=== PATIENT | female | born 1965 | race Caucasian/White ===

== ENCOUNTER 2018-09-20 01:26 | Inpatient (IN) | payer OTHER, MEDICAID ==
[2018-09-20 02:35] LABS: ADD MAN DIFF? NO
[2018-09-20 02:38] LABS: BASOPHILS % 0.1 % (0.0-2.0); EOSINOPHILS % 0.3 % (0.0-7.0); HEMATOCRIT 31.2 % (37.0-47.0); HEMOGLOBIN 9.9 g/dl (12.0-16.0); LYMPHOCYTES # 0.7 10^3/ul (0.8-2.9); LYMPHOCYTES % 6.2 % (15.0-51.0); MEAN CORPUSCULAR HEMOGLOBIN 27.3 pg (29.0-33.0); MEAN CORPUSCULAR HGB CONC 31.7 g/dl (32.0-37.0); MEAN CORPUSCULAR VOLUME 86.2 fl (82.0-101.0); MEAN PLATELET VOLUME 9.2 fl (7.4-10.4); MONOCYTE # 0.7 10^3/ul (0.3-0.9); MONOCYTES % 6.1 % (0.0-11.0); NEUTROPHIL # 9.5 10^3/ul (1.6-7.5); NEUTROPHILS % 86.9 % (39.0-77.0); PLATELET COUNT 332 10^3/UL (140-415); RED BLOOD COUNT 3.62 10^6/ul (4.20-5.40)
[2018-09-20 02:38] LABS: WHITE BLOOD COUNT 10.9 10^3/ul (4.8-10.8)
[2018-09-20 02:53] LABS: INR 1.14; PROTIME 14.8 Sec (11.9-14.9); PT RATIO 1.2
[2018-09-20 02:54] LABS: PARTIAL THROMBOPLASTIN TIME 31.2 Sec (23.0-35.0)
[2018-09-20] MEDS ORDERED: ONDANSETRON 4 MG INJ IV (03:00)
[2018-09-20] MEDS ORDERED: ACETAMINOPHEN 325 MG TAB PO (03:00)
[2018-09-20] MEDS: CEFEPIME 2GM/50 ML (PMX) 50 ML IVPB (03:15)
[2018-09-20] MEDS: ONDANSETRON 4 MG INJ IV ×2 (03:15→05:18)
[2018-09-20] MEDS: morphine 4 MG/ML VIAL IV (03:15)
[2018-09-20] MEDS: SODIUM CHLORIDE 0.9% 1L BAG IV* (03:15)
[2018-09-20] MEDS: ENOXAPARIN 80 MG/0.8 ML SYG SC ×4 (03:16→20:35)
[2018-09-20] MEDS: hydrALAzine 20 MG INJ IV ×3 (03:32→13:04)
[2018-09-20] MEDS: VANCOMYCIN 1 GM (PMX) 250 ML IVPB (03:34)
[2018-09-20 03:45] LABS: ANION GAP 4 (5-13); BLOOD UREA NITROGEN 21 mg/dl (7-20); C-REACTIVE PROTEIN 5.4 mg/dl (0.0-0.9); CALCIUM 8.2 mg/dl (8.4-10.2); CARBON DIOXIDE 29 mmol/L (21-31); CHLORIDE 104 mmol/L (97-110); CREATININE 1.17 mg/dl (0.44-1.00); Estimated GFR 48 mL/min (>60); GLUCOSE 300 mg/dl (70-220); POTASSIUM 4.1 mmol/L (3.5-5.1); SODIUM 137 mmol/L (135-144)
[2018-09-20 03:54] LABS: TROPONIN-I 0.012 ng/ml (0.000-0.120)
[2018-09-20 04:20] LABS: ERYTHROCYTE SEDIMENTATION RATE 77 mm/Hr (0-30)
[2018-09-20] MEDS: NICARDipine HCL 30 MG CAPSULE PO (04:30)
[2018-09-20] MEDS ORDERED: GLUCOSE GEL 15 GRAM TUBE PO ×2 (05:00)
[2018-09-20] MEDS ORDERED: GLUCOSE GEL 15 GRAM TUBE BUCCAL (05:00)
[2018-09-20] MEDS ORDERED: DEXTROSE 50% 50 ML SYRINGE IV (05:00)
[2018-09-20] MEDS ORDERED: GLUCAGON 1 MG INJ IM (05:00)
[2018-09-20] MEDS ORDERED: traMADol 50 MG TAB PO (05:00)
[2018-09-20] MEDS ORDERED: NACL 0.9% 3 ML SYG IV (05:00)
[2018-09-20] MEDS: METOPROLOL 25 MG TAB PO ×2 (05:32→20:15)
[2018-09-20] MEDS: INSULIN ASPART [NOVOLOG] 3 ML PEN SC ×8 (05:40→21:00)
[2018-09-20] MEDS: INSULIN DETEMIR [LEVEMIR] (100 UNITS/ML) SYG SC (05:41)
[2018-09-20 06:21] LABS: ADD MAN DIFF? NO
[2018-09-20 06:27] LABS: BASOPHILS % 0.2 % (0.0-2.0); EOSINOPHILS % 0.3 % (0.0-7.0); HEMATOCRIT 31.3 % (37.0-47.0); HEMOGLOBIN 9.9 g/dl (12.0-16.0); LYMPHOCYTES % 8.9 % (15.0-51.0); MEAN CORPUSCULAR HEMOGLOBIN 27.6 pg (29.0-33.0); MEAN CORPUSCULAR HGB CONC 31.6 g/dl (32.0-37.0); MEAN CORPUSCULAR VOLUME 87.2 fl (82.0-101.0); MEAN PLATELET VOLUME 9.5 fl (7.4-10.4); MONOCYTE # 0.6 10^3/ul (0.3-0.9); NEUTROPHIL # 9.9 10^3/ul (1.6-7.5); NEUTROPHILS % 85.3 % (39.0-77.0); PLATELET COUNT 341 10^3/UL (140-415); RED BLOOD COUNT 3.59 10^6/ul (4.20-5.40); RED CELL DISTRIBUTION WIDTH 14.2 % (11.5-14.5)
[2018-09-20 06:27] LABS: WHITE BLOOD COUNT 11.6 10^3/ul (4.8-10.8)
[2018-09-20] MEDS: AMLODIPINE 10 MG TAB PO (06:40)
[2018-09-20 07:02] LABS: ANION GAP 5 (5-13); BLOOD UREA NITROGEN 21 mg/dl (7-20); CALCIUM 7.8 mg/dl (8.4-10.2); CARBON DIOXIDE 27 mmol/L (21-31); CHLORIDE 106 mmol/L (97-110); CREATININE 1.11 mg/dl (0.44-1.00); Estimated GFR 51 mL/min (>60); GLUCOSE 286 mg/dl (70-220); POTASSIUM 4.4 mmol/L (3.5-5.1); SODIUM 138 mmol/L (135-144)
[2018-09-20 07:43] LABS: IRON 16 ug/dl (35-150)
[2018-09-20 07:52] LABS: % IRON SATURATION 8 % SAT (22-52); TOTAL IRON BINDING CAPACITY 204 ug/dl (241-421)
[2018-09-20] MEDS: CEFEPIME 1GM/50 ML (PMX) 50 ML IVPB ×2 (08:43→20:14)
[2018-09-20] MEDS ORDERED: VANCOMYCIN IV PER PHARMACY XX (09:00)
[2018-09-20] MEDS: VANCOMYCIN 1.25 GM in SOD CHLORIDE 0.9% 250 ML IVPB (10:44)
[2018-09-20] MEDS: LACTATED RINGER'S 500 ML IV (11:00)
[2018-09-20] MEDS: DEXTROSE 50% 50 ML SYRINGE IV (12:15)
[2018-09-20] MEDS: LOSARTAN 25 MG TAB PO ×2 (12:16→20:15)
[2018-09-20 14:35] LABS: GLUCOSE 86 mg/dl (70-220)
[2018-09-20 14:42] LABS: LACTIC ACID 2.3 mmol/L (0.5-2.0)
[2018-09-20 14:48] LABS: TROPONIN-I < 0.012 ng/ml (0.000-0.120)
[2018-09-20] MEDS: MONTELUKAST 10 MG TAB PO (20:14)
[2018-09-20] MEDS: SOD FERRIC GLUC COMPLX 125 MG in SOD CHLORIDE 0.9% 100 ML IVPB (21:31)
[2018-09-20 22:41] LABS: ADD UMIC YES; UR ASCORBIC ACID NEGATIVE (NEGATIVE); UR BILIRUBIN (Dip) NEGATIVE (NEGATIVE); UR BLOOD (Dip) 1+ mg/dL (NEGATIVE); UR CLARITY CLEAR (CLEAR); UR COLOR YELLOW (YELLOW); UR GLUCOSE (Dip) 2+ mg/dL (NEGATIVE); UR KETONES (Dip) NEGATIVE (NEGATIVE); UR LEUKOCYTE ESTERASE (Dip) NEGATIVE Leu/ul (NEGATIVE); UR NITRITE (Dip) NEGATIVE (NEGATIVE); UR RBC 8 /HPF (0-5); UR SPECIFIC GRAVITY (Dip) 1.011 (1.003-1.030); UR TOTAL PROTEIN (Dip) 2+ mg/dl (NEGATIVE); UR UROBILINOGEN (Dip) NEGATIVE (NEGATIVE); UR WBC 3 /HPF (0-5)
[2018-09-21] MEDS: hydrALAzine 20 MG INJ IV (00:27)
[2018-09-21] MEDS: ACCU-CHEK XX ×2 (02:00→22:37)
[2018-09-21 05:48] LABS: ADD MAN DIFF? NO
[2018-09-21 05:56] LABS: WHITE BLOOD COUNT 7.7 10^3/ul (4.8-10.8)
[2018-09-21 05:56] LABS: BASOPHILS % 0.3 % (0.0-2.0); EOSINOPHILS # 0.1 10^3/ul (0.0-0.5); EOSINOPHILS % 0.6 % (0.0-7.0); HEMATOCRIT 28.2 % (37.0-47.0); HEMOGLOBIN 8.9 g/dl (12.0-16.0); LYMPHOCYTES % 13.1 % (15.0-51.0); MEAN CORPUSCULAR HEMOGLOBIN 27.4 pg (29.0-33.0); MEAN CORPUSCULAR HGB CONC 31.6 g/dl (32.0-37.0); MEAN CORPUSCULAR VOLUME 86.8 fl (82.0-101.0); MEAN PLATELET VOLUME 9.6 fl (7.4-10.4); MONOCYTE # 0.5 10^3/ul (0.3-0.9); MONOCYTES % 6.2 % (0.0-11.0); NEUTROPHIL # 6.1 10^3/ul (1.6-7.5); NEUTROPHILS % 79.5 % (39.0-77.0); PLATELET COUNT 295 10^3/UL (140-415); RED BLOOD COUNT 3.25 10^6/ul (4.20-5.40); RED CELL DISTRIBUTION WIDTH 14.7 % (11.5-14.5)
[2018-09-21] MEDS: metroNIDAZOLE 500 MG/NS (PMX) 100 ML IVPB ×3 (06:00→22:37)
[2018-09-21 06:08] LABS: ALANINE AMINOTRANSFERASE 18 IU/L (13-69); ALBUMIN 2.4 g/dl (3.3-4.9); ALBUMIN/GLOBULIN RATIO 0.72; ALKALINE PHOSPHATASE 247 IU/L (42-121); ANION GAP 4 (5-13); ASPARTATE AMINO TRANSFERASE 13 IU/L (15-46); BILIRUBIN,INDIRECT 0.2 mg/dl (0-1.1); BILIRUBIN,TOTAL 0.2 mg/dl (0.2-1.3); BLOOD UREA NITROGEN 27 mg/dl (7-20); CALCIUM 7.7 mg/dl (8.4-10.2); CARBON DIOXIDE 26 mmol/L (21-31); CHLORIDE 106 mmol/L (97-110); CREATININE 1.34 mg/dl (0.44-1.00); Estimated GFR 41 mL/min (>60); GLUCOSE 116 mg/dl (70-220); MAGNESIUM 1.8 mg/dl (1.7-2.5); POTASSIUM 4.6 mmol/L (3.5-5.1); SODIUM 136 mmol/L (135-144); TOTAL PROTEIN 5.7 g/dl (6.1-8.1)
[2018-09-21 06:08] LABS: PHOSPHORUS 4.1 mg/dl (2.5-4.9)
[2018-09-21] MEDS: METOPROLOL 25 MG TAB PO ×2 (07:55→22:22)
[2018-09-21] MEDS: LOSARTAN 25 MG TAB PO (07:55)
[2018-09-21] MEDS: SODIUM HYPOCHLORITE (1/40) 1 APPLIC BTL IRR (07:55)
[2018-09-21] MEDS: INSULIN DETEMIR [LEVEMIR] (100 UNITS/ML) SYG SC (07:58)
[2018-09-21] MEDS: ENOXAPARIN 80 MG/0.8 ML SYG SC ×2 (07:59→22:35)
[2018-09-21] MEDS: INSULIN ASPART [NOVOLOG] 3 ML PEN SC ×7 (07:59→21:00)
[2018-09-21] MEDS: AMLODIPINE 10 MG TAB PO (08:06)
[2018-09-21] MEDS: SOD CHLORIDE 0.9% 1,000 ML IV (09:00)
[2018-09-21] MEDS ORDERED: ENOXAPARIN 40 MG/0.4 ML SYG SC (09:00)
[2018-09-21] MEDS: CEFEPIME 1GM/50 ML (PMX) 50 ML IVPB ×2 (09:13→22:23)
[2018-09-21] MEDS: HYDROCODONE/APAP (5/325) TAB PO (09:17)
[2018-09-21 09:44] LABS: SODIUM 136 mmol/L (135-144)
[2018-09-21 09:44] LABS: CREATININE 1.31 mg/dl (0.44-1.00)
[2018-09-21 09:45] LABS: HEMOGLOBIN A1C 8.1 % (0-5.9)
[2018-09-21] MEDS: VANCOMYCIN 1.25 GM in SOD CHLORIDE 0.9% 250 ML IVPB (11:01)
[2018-09-21] MEDS ORDERED: AMLODIPINE 2.5 MG TAB PO (13:00)
[2018-09-21 21:05] LABS: OSMOLALITY,URINE 359 mOsm/kg (250-1200)
[2018-09-21] MEDS: MONTELUKAST 10 MG TAB PO (22:21)
[2018-09-22] MEDS: hydrALAzine 20 MG INJ IV ×2 (00:10→21:29)
[2018-09-22] MEDS: ONDANSETRON 4 MG INJ IV (03:53)
[2018-09-22] MEDS: HYDROCODONE/APAP (5/325) TAB PO (04:13)
[2018-09-22] MEDS: metroNIDAZOLE 500 MG/NS (PMX) 100 ML IVPB ×2 (05:56→14:05)
[2018-09-22 06:21] LABS: ADD MAN DIFF? NO
[2018-09-22 06:22] LABS: BASOPHILS % 0.4 % (0.0-2.0); EOSINOPHILS # 0.1 10^3/ul (0.0-0.5); EOSINOPHILS % 0.9 % (0.0-7.0); HEMATOCRIT 29.6 % (37.0-47.0); HEMOGLOBIN 9.2 g/dl (12.0-16.0); LYMPHOCYTES # 0.9 10^3/ul (0.8-2.9); LYMPHOCYTES % 12.5 % (15.0-51.0); MEAN CORPUSCULAR HEMOGLOBIN 27.1 pg (29.0-33.0); MEAN CORPUSCULAR HGB CONC 31.1 g/dl (32.0-37.0); MEAN CORPUSCULAR VOLUME 87.3 fl (82.0-101.0); MEAN PLATELET VOLUME 9.4 fl (7.4-10.4); MONOCYTE # 0.5 10^3/ul (0.3-0.9); MONOCYTES % 6.9 % (0.0-11.0); NEUTROPHIL # 5.5 10^3/ul (1.6-7.5); PLATELET COUNT 309 10^3/UL (140-415); RED BLOOD COUNT 3.39 10^6/ul (4.20-5.40); RED CELL DISTRIBUTION WIDTH 14.8 % (11.5-14.5)
[2018-09-22 06:46] LABS: ANION GAP 2 (5-13); BLOOD UREA NITROGEN 29 mg/dl (7-20); CALCIUM 7.9 mg/dl (8.4-10.2); CARBON DIOXIDE 26 mmol/L (21-31); CHLORIDE 108 mmol/L (97-110); CREATININE 1.49 mg/dl (0.44-1.00); Estimated GFR 36 mL/min (>60); GLUCOSE 112 mg/dl (70-220); POTASSIUM 4.6 mmol/L (3.5-5.1); SODIUM 136 mmol/L (135-144)
[2018-09-22] MEDS: INSULIN ASPART [NOVOLOG] 3 ML PEN SC ×7 (07:38→21:00)
[2018-09-22] MEDS: INSULIN DETEMIR [LEVEMIR] (100 UNITS/ML) SYG SC (07:41)
[2018-09-22] MEDS: ENOXAPARIN 80 MG/0.8 ML SYG SC ×2 (07:42→21:38)
[2018-09-22] MEDS: METOPROLOL 25 MG TAB PO ×2 (07:43→21:27)
[2018-09-22] MEDS: AMLODIPINE 10 MG TAB PO (07:44)
[2018-09-22] MEDS: CEFEPIME 1GM/50 ML (PMX) 50 ML IVPB (07:45)
[2018-09-22] MEDS ORDERED: AMLODIPINE 2.5 MG TAB PO (09:00)
[2018-09-22] MEDS: SODIUM HYPOCHLORITE (1/40) 1 APPLIC BTL IRR (09:00)
[2018-09-22] MEDS: VANCOMYCIN 1.25 GM in SOD CHLORIDE 0.9% 250 ML IVPB (10:44)
[2018-09-22] MEDS ORDERED: ENOXAPARIN 30 MG/0.3 ML SYG SC (16:00)
[2018-09-22] MEDS: DAPTOMYCIN IVPB (16:17)
[2018-09-22] MEDS: SOD CHLORIDE 0.9% IVPB (16:17)
[2018-09-22] MEDS: MONTELUKAST 10 MG TAB PO (21:26)
[2018-09-22] MEDS: NEOMYC/POLYMYX/BACIT 30 GM OINT TOP (21:28)
[2018-09-23] MEDS: ACCU-CHEK XX (02:00)
[2018-09-23 05:38] LABS: ADD MAN DIFF? NO
[2018-09-23 05:40] LABS: BASOPHILS % 0.3 % (0.0-2.0); EOSINOPHILS % 0.6 % (0.0-7.0); HEMATOCRIT 29.7 % (37.0-47.0); HEMOGLOBIN 9.3 g/dl (12.0-16.0); LYMPHOCYTES % 15.7 % (15.0-51.0); MEAN CORPUSCULAR HGB CONC 31.3 g/dl (32.0-37.0); MEAN CORPUSCULAR VOLUME 86.1 fl (82.0-101.0); MEAN PLATELET VOLUME 9.5 fl (7.4-10.4); MONOCYTE # 0.4 10^3/ul (0.3-0.9); MONOCYTES % 6.9 % (0.0-11.0); NEUTROPHIL # 4.8 10^3/ul (1.6-7.5); NEUTROPHILS % 76.3 % (39.0-77.0); PLATELET COUNT 292 10^3/UL (140-415); RED BLOOD COUNT 3.45 10^6/ul (4.20-5.40); RED CELL DISTRIBUTION WIDTH 15.2 % (11.5-14.5)
[2018-09-23 05:40] LABS: WHITE BLOOD COUNT 6.2 10^3/ul (4.8-10.8)
[2018-09-23 06:33] LABS: CREATINE KINASE < 20 IU/L (23-200)
[2018-09-23 06:54] LABS: ANION GAP 4 (5-13); BLOOD UREA NITROGEN 29 mg/dl (7-20); CARBON DIOXIDE 24 mmol/L (21-31); CHLORIDE 109 mmol/L (97-110); CREATININE 1.43 mg/dl (0.44-1.00); Estimated GFR 38 mL/min (>60); GLUCOSE 125 mg/dl (70-220); POTASSIUM 4.5 mmol/L (3.5-5.1); SODIUM 137 mmol/L (135-144)
[2018-09-23] MEDS: INSULIN ASPART [NOVOLOG] 3 ML PEN SC ×7 (07:53→20:51)
[2018-09-23] MEDS: AMLODIPINE 10 MG TAB PO (08:06)
[2018-09-23] MEDS: METOPROLOL 25 MG TAB PO ×2 (08:07→20:50)
[2018-09-23] MEDS: NEOMYC/POLYMYX/BACIT 30 GM OINT TOP ×2 (08:08→20:51)
[2018-09-23] MEDS: SODIUM HYPOCHLORITE (1/40) 1 APPLIC BTL IRR (08:08)
[2018-09-23] MEDS: ENOXAPARIN 80 MG/0.8 ML SYG SC (08:10)
[2018-09-23] MEDS ORDERED: FENTAnyl 50 MCG/ML VIAL (12:30)
[2018-09-23] MEDS ORDERED: LIDOCAINE 2% (MDV) 20 ML INJ (12:30)
[2018-09-23] MEDS ORDERED: HEPARIN 1000 UNITS/NS (A-LINE) 1,000 ML (12:30)
[2018-09-23] MEDS ORDERED: MIDAZOLAM 1 MG/ML 2 ML INJ (12:30)
[2018-09-23] MEDS: INSULIN DETEMIR [LEVEMIR] (100 UNITS/ML) SYG SC (14:26)
[2018-09-23] MEDS: SOD CHLORIDE 0.9% IVPB (16:15)
[2018-09-23] MEDS: DAPTOMYCIN IVPB (16:15)
[2018-09-23] MEDS: MONTELUKAST 10 MG TAB PO (20:50)
[2018-09-24] MEDS: ENOXAPARIN 80 MG/0.8 ML SYG SC ×3 (00:44→21:00)
[2018-09-24] MEDS: ACCU-CHEK XX (02:00)
[2018-09-24 05:51] LABS: ADD MAN DIFF? NO
[2018-09-24 06:06] LABS: BASOPHILS % 0.4 % (0.0-2.0); EOSINOPHILS % 0.6 % (0.0-7.0); HEMATOCRIT 31.9 % (37.0-47.0); HEMOGLOBIN 9.9 g/dl (12.0-16.0); LYMPHOCYTES # 1.1 10^3/ul (0.8-2.9); LYMPHOCYTES % 16.1 % (15.0-51.0); MEAN CORPUSCULAR HEMOGLOBIN 27.7 pg (29.0-33.0); MEAN CORPUSCULAR VOLUME 89.1 fl (82.0-101.0); MEAN PLATELET VOLUME 9.7 fl (7.4-10.4); MONOCYTE # 0.5 10^3/ul (0.3-0.9); MONOCYTES % 7.1 % (0.0-11.0); NEUTROPHIL # 5.2 10^3/ul (1.6-7.5); NEUTROPHILS % 75.5 % (39.0-77.0); PLATELET COUNT 278 10^3/UL (140-415); RED BLOOD COUNT 3.58 10^6/ul (4.20-5.40); RED CELL DISTRIBUTION WIDTH 15.4 % (11.5-14.5)
[2018-09-24 06:06] LABS: WHITE BLOOD COUNT 6.9 10^3/ul (4.8-10.8)
[2018-09-24 06:30] LABS: ANION GAP 3 (5-13); BLOOD UREA NITROGEN 27 mg/dl (7-20); CALCIUM 7.9 mg/dl (8.4-10.2); CARBON DIOXIDE 26 mmol/L (21-31); CHLORIDE 110 mmol/L (97-110); CREATININE 1.29 mg/dl (0.44-1.00); Estimated GFR 43 mL/min (>60); GLUCOSE 115 mg/dl (70-220); POTASSIUM 4.2 mmol/L (3.5-5.1); SODIUM 139 mmol/L (135-144)
[2018-09-24] MEDS: INSULIN ASPART [NOVOLOG] 3 ML PEN SC ×7 (08:00→22:00)
[2018-09-24] MEDS: INSULIN DETEMIR [LEVEMIR] (100 UNITS/ML) SYG SC (08:08)
[2018-09-24] MEDS: AMLODIPINE 10 MG TAB PO (08:31)
[2018-09-24] MEDS: METOPROLOL 25 MG TAB PO ×2 (08:33→21:32)
[2018-09-24] MEDS: SODIUM HYPOCHLORITE (1/40) 1 APPLIC BTL IRR (08:48)
[2018-09-24] MEDS: NEOMYC/POLYMYX/BACIT 30 GM OINT TOP ×2 (08:48→23:40)
[2018-09-24] MEDS: hydrALAzine 20 MG INJ IV (11:49)
[2018-09-24] MEDS: DAPTOMYCIN IVPB (15:36)
[2018-09-24] MEDS: SOD CHLORIDE 0.9% IVPB (15:36)
[2018-09-24] MEDS: MONTELUKAST 10 MG TAB PO (21:32)
[2018-09-25] MEDS: hydrALAzine 20 MG INJ IV (00:56)
[2018-09-25] MEDS: ACCU-CHEK XX (02:00)
[2018-09-25 06:12] LABS: ADD MAN DIFF? NO
[2018-09-25 06:25] LABS: BASOPHILS % 0.4 % (0.0-2.0); EOSINOPHILS % 0.7 % (0.0-7.0); HEMATOCRIT 28.2 % (37.0-47.0); HEMOGLOBIN 8.9 g/dl (12.0-16.0); LYMPHOCYTES # 1.2 10^3/ul (0.8-2.9); LYMPHOCYTES % 22.3 % (15.0-51.0); MEAN CORPUSCULAR HEMOGLOBIN 27.6 pg (29.0-33.0); MEAN CORPUSCULAR HGB CONC 31.6 g/dl (32.0-37.0); MEAN CORPUSCULAR VOLUME 87.6 fl (82.0-101.0); MEAN PLATELET VOLUME 10.5 fl (7.4-10.4); MONOCYTE # 0.5 10^3/ul (0.3-0.9); MONOCYTES % 8.4 % (0.0-11.0); NEUTROPHIL # 3.7 10^3/ul (1.6-7.5); NEUTROPHILS % 67.8 % (39.0-77.0); PLATELET COUNT 248 10^3/UL (140-415); RED BLOOD COUNT 3.22 10^6/ul (4.20-5.40); RED CELL DISTRIBUTION WIDTH 15.3 % (11.5-14.5)
[2018-09-25 06:25] LABS: WHITE BLOOD COUNT 5.5 10^3/ul (4.8-10.8)
[2018-09-25 07:11] LABS: ANION GAP 4 (5-13); BLOOD UREA NITROGEN 27 mg/dl (7-20); CALCIUM 7.8 mg/dl (8.4-10.2); CARBON DIOXIDE 28 mmol/L (21-31); CHLORIDE 106 mmol/L (97-110); CREATININE 1.25 mg/dl (0.44-1.00); Estimated GFR 44 mL/min (>60); GLUCOSE 112 mg/dl (70-220); POTASSIUM 4.2 mmol/L (3.5-5.1); SODIUM 138 mmol/L (135-144)
[2018-09-25] MEDS ORDERED: IODIXANOL LOCM 100 ML BTL (07:45)
[2018-09-25] MEDS ORDERED: FENTAnyl 50 MCG/ML VIAL (07:45)
[2018-09-25] MEDS ORDERED: LIDOCAINE 2% (MDV) 20 ML INJ (07:45)
[2018-09-25] MEDS ORDERED: MIDAZOLAM 1 MG/ML 2 ML INJ (07:45)
[2018-09-25] MEDS ORDERED: NITROGLYCERIN (IC) 100 MCG/ML INJ (07:54)
[2018-09-25] MEDS ORDERED: CLOPIDOGREL 300 MG TAB (09:10)
[2018-09-25] MEDS: INSULIN ASPART [NOVOLOG] 3 ML PEN SC ×7 (10:25→20:46)
[2018-09-25] MEDS: CLOPIDOGREL 75 MG TAB PO (10:30)
[2018-09-25] MEDS: NEOMYC/POLYMYX/BACIT 30 GM OINT TOP ×2 (10:30→20:50)
[2018-09-25] MEDS: SODIUM HYPOCHLORITE (1/40) 1 APPLIC BTL IRR (10:30)
[2018-09-25] MEDS: ASPIRIN 81 MG TAB PO (10:37)
[2018-09-25] MEDS: AMLODIPINE 10 MG TAB PO (10:40)
[2018-09-25] MEDS: METOPROLOL 25 MG TAB PO (10:40)
[2018-09-25] MEDS: INSULIN DETEMIR [LEVEMIR] (100 UNITS/ML) SYG SC (10:57)
[2018-09-25] MEDS: ENOXAPARIN 80 MG/0.8 ML SYG SC ×2 (12:24→20:46)
[2018-09-25] MEDS: BISACODYL (EC) 5 MG TAB PO (15:34)
[2018-09-25] MEDS: SOD CHLORIDE 0.9% IVPB (15:35)
[2018-09-25] MEDS: DAPTOMYCIN IVPB (15:35)
[2018-09-25] MEDS: METOPROLOL 50 MG TAB PO (20:40)
[2018-09-25] MEDS: DOCUSATE SODIUM 100 MG CAP PO (20:42)
[2018-09-25] MEDS: MONTELUKAST 10 MG TAB PO (20:43)
[2018-09-26] MEDS: ACCU-CHEK XX (02:04)
[2018-09-26 05:26] LABS: ADD MAN DIFF? NO
[2018-09-26 05:36] LABS: WHITE BLOOD COUNT 6.3 10^3/ul (4.8-10.8)
[2018-09-26 05:36] LABS: BASOPHILS % 0.3 % (0.0-2.0); EOSINOPHILS # 0.1 10^3/ul (0.0-0.5); EOSINOPHILS % 0.8 % (0.0-7.0); HEMATOCRIT 28.4 % (37.0-47.0); HEMOGLOBIN 8.8 g/dl (12.0-16.0); LYMPHOCYTES # 1.2 10^3/ul (0.8-2.9); MEAN CORPUSCULAR HEMOGLOBIN 27.1 pg (29.0-33.0); MEAN CORPUSCULAR VOLUME 87.4 fl (82.0-101.0); MEAN PLATELET VOLUME 10.5 fl (7.4-10.4); MONOCYTE # 0.4 10^3/ul (0.3-0.9); MONOCYTES % 6.8 % (0.0-11.0); NEUTROPHIL # 4.6 10^3/ul (1.6-7.5); NEUTROPHILS % 72.8 % (39.0-77.0); PLATELET COUNT 241 10^3/UL (140-415); RED BLOOD COUNT 3.25 10^6/ul (4.20-5.40); RED CELL DISTRIBUTION WIDTH 15.5 % (11.5-14.5)
[2018-09-26 06:00] LABS: ANION GAP 6 (5-13); BLOOD UREA NITROGEN 31 mg/dl (7-20); CARBON DIOXIDE 27 mmol/L (21-31); CHLORIDE 106 mmol/L (97-110); CREATININE 1.39 mg/dl (0.44-1.00); Estimated GFR 39 mL/min (>60); GLUCOSE 157 mg/dl (70-220); POTASSIUM 4.8 mmol/L (3.5-5.1); SODIUM 139 mmol/L (135-144)
[2018-09-26] MEDS: INSULIN ASPART [NOVOLOG] 3 ML PEN SC ×7 (07:55→21:00)
[2018-09-26] MEDS: INSULIN DETEMIR [LEVEMIR] (100 UNITS/ML) SYG SC (07:59)
[2018-09-26] MEDS: SODIUM HYPOCHLORITE (1/40) 1 APPLIC BTL IRR (09:00)
[2018-09-26] MEDS: NEOMYC/POLYMYX/BACIT 30 GM OINT TOP ×2 (09:00→21:22)
[2018-09-26] MEDS: CLOPIDOGREL 75 MG TAB PO (09:10)
[2018-09-26] MEDS: METOPROLOL 50 MG TAB PO ×2 (09:11→21:21)
[2018-09-26] MEDS: AMLODIPINE 10 MG TAB PO (09:11)
[2018-09-26] MEDS: ASPIRIN 81 MG TAB PO (09:12)
[2018-09-26] MEDS: ENOXAPARIN 80 MG/0.8 ML SYG SC ×2 (09:17→21:39)
[2018-09-26] MEDS: SOD CHLORIDE 0.9% 1,000 ML IV ×3 (10:01→23:40)
[2018-09-26] MEDS: ONDANSETRON 4 MG INJ IV ×2 (11:24→11:25)
[2018-09-26] MEDS: SOD CHLORIDE 0.9% IVPB (16:06)
[2018-09-26] MEDS: DAPTOMYCIN IVPB (16:06)
[2018-09-26] MEDS: DOCUSATE SODIUM 100 MG CAP PO (21:21)
[2018-09-26] MEDS: MONTELUKAST 10 MG TAB PO (21:21)
[2018-09-27 05:36] LABS: ADD MAN DIFF? NO
[2018-09-27 05:44] LABS: BASOPHILS % 0.2 % (0.0-2.0); EOSINOPHILS # 0.1 10^3/ul (0.0-0.5); EOSINOPHILS % 0.9 % (0.0-7.0); HEMATOCRIT 27.9 % (37.0-47.0); HEMOGLOBIN 8.5 g/dl (12.0-16.0); LYMPHOCYTES # 1.1 10^3/ul (0.8-2.9); MEAN CORPUSCULAR HEMOGLOBIN 27.1 pg (29.0-33.0); MEAN CORPUSCULAR HGB CONC 30.5 g/dl (32.0-37.0); MEAN CORPUSCULAR VOLUME 88.9 fl (82.0-101.0); MEAN PLATELET VOLUME 10.1 fl (7.4-10.4); MONOCYTE # 0.4 10^3/ul (0.3-0.9); MONOCYTES % 7.6 % (0.0-11.0); NEUTROPHILS % 70.9 % (39.0-77.0); PLATELET COUNT 228 10^3/UL (140-415); RED BLOOD COUNT 3.14 10^6/ul (4.20-5.40); RED CELL DISTRIBUTION WIDTH 15.8 % (11.5-14.5)
[2018-09-27 05:44] LABS: WHITE BLOOD COUNT 5.7 10^3/ul (4.8-10.8)
[2018-09-27 06:20] LABS: ALBUMIN 2.5 g/dl (3.3-4.9); ANION GAP 5 (5-13); BLOOD UREA NITROGEN 29 mg/dl (7-20); CALCIUM 7.9 mg/dl (8.4-10.2); CARBON DIOXIDE 27 mmol/L (21-31); CHLORIDE 107 mmol/L (97-110); CREATININE 1.21 mg/dl (0.44-1.00); GLUCOSE 119 mg/dl (70-220); MAGNESIUM 1.9 mg/dl (1.7-2.5); PHOSPHORUS 3.4 mg/dl (2.5-4.9); POTASSIUM 5.1 mmol/L (3.5-5.1); SODIUM 139 mmol/L (135-144)
[2018-09-27] MEDS: INSULIN ASPART [NOVOLOG] 3 ML PEN SC ×7 (07:52→20:45)
[2018-09-27] MEDS: INSULIN DETEMIR [LEVEMIR] (100 UNITS/ML) SYG SC (07:54)
[2018-09-27] MEDS: ASPIRIN 81 MG TAB PO (08:22)
[2018-09-27] MEDS: METOPROLOL 50 MG TAB PO ×2 (08:23→20:51)
[2018-09-27] MEDS: CLOPIDOGREL 75 MG TAB PO (08:23)
[2018-09-27] MEDS: AMLODIPINE 10 MG TAB PO (08:23)
[2018-09-27] MEDS: NEOMYC/POLYMYX/BACIT 30 GM OINT TOP ×2 (08:24→20:52)
[2018-09-27] MEDS: ACETAMINOPHEN 325 MG TAB PO (08:24)
[2018-09-27] MEDS: ENOXAPARIN 80 MG/0.8 ML SYG SC ×2 (08:26→20:57)
[2018-09-27] MEDS: SODIUM HYPOCHLORITE (1/40) 1 APPLIC BTL IRR (09:00)
[2018-09-27] MEDS: SOD CHLORIDE 0.9% 1,000 ML IV (12:15)
[2018-09-27 15:16] LABS: ALBUMIN 2.4 g/dl (3.3-4.9); ANION GAP 4 (5-13); BLOOD UREA NITROGEN 31 mg/dl (7-20); CALCIUM 7.9 mg/dl (8.4-10.2); CARBON DIOXIDE 28 mmol/L (21-31); CHLORIDE 107 mmol/L (97-110); CREATININE 1.21 mg/dl (0.44-1.00); GLUCOSE 96 mg/dl (70-220); MAGNESIUM 1.9 mg/dl (1.7-2.5); PHOSPHORUS 3.5 mg/dl (2.5-4.9); POTASSIUM 5.1 mmol/L (3.5-5.1); SODIUM 139 mmol/L (135-144)
[2018-09-27] MEDS: SOD CHLORIDE 0.9% IVPB (16:49)
[2018-09-27] MEDS: DAPTOMYCIN IVPB (16:49)
[2018-09-27] MEDS: MONTELUKAST 10 MG TAB PO (20:51)
[2018-09-27] MEDS: DOCUSATE SODIUM 100 MG CAP PO (20:51)
[2018-09-28] MEDS: SOD CHLORIDE 0.9% 1,000 ML IV (01:19)
[2018-09-28 05:08] LABS: ADD MAN DIFF? NO
[2018-09-28 05:16] LABS: BASOPHILS % 0.2 % (0.0-2.0); EOSINOPHILS # 0.1 10^3/ul (0.0-0.5); HEMATOCRIT 27.2 % (37.0-47.0); HEMOGLOBIN 8.4 g/dl (12.0-16.0); LYMPHOCYTES # 1.2 10^3/ul (0.8-2.9); LYMPHOCYTES % 19.6 % (15.0-51.0); MEAN CORPUSCULAR HEMOGLOBIN 27.2 pg (29.0-33.0); MEAN CORPUSCULAR HGB CONC 30.9 g/dl (32.0-37.0); MEAN PLATELET VOLUME 10.7 fl (7.4-10.4); MONOCYTE # 0.4 10^3/ul (0.3-0.9); MONOCYTES % 7.2 % (0.0-11.0); NEUTROPHIL # 4.2 10^3/ul (1.6-7.5); NEUTROPHILS % 71.7 % (39.0-77.0); PLATELET COUNT 234 10^3/UL (140-415); RED BLOOD COUNT 3.09 10^6/ul (4.20-5.40); RED CELL DISTRIBUTION WIDTH 15.9 % (11.5-14.5)
[2018-09-28 05:16] LABS: WHITE BLOOD COUNT 5.9 10^3/ul (4.8-10.8)
[2018-09-28] MEDS: INSULIN DETEMIR [LEVEMIR] (100 UNITS/ML) SYG SC ×2 (08:00→09:37)
[2018-09-28] MEDS: INSULIN ASPART [NOVOLOG] 3 ML PEN SC ×7 (08:00→20:47)
[2018-09-28] MEDS: METOPROLOL 50 MG TAB PO ×2 (08:49→22:08)
[2018-09-28] MEDS: AMLODIPINE 10 MG TAB PO (08:49)
[2018-09-28] MEDS: CLOPIDOGREL 75 MG TAB PO (08:49)
[2018-09-28] MEDS: ASPIRIN 81 MG TAB PO (08:49)
[2018-09-28] MEDS: ACETAMINOPHEN 325 MG TAB PO (08:50)
[2018-09-28] MEDS: SODIUM HYPOCHLORITE (1/40) 1 APPLIC BTL IRR (08:50)
[2018-09-28] MEDS: NEOMYC/POLYMYX/BACIT 30 GM OINT TOP ×2 (08:55→22:06)
[2018-09-28] MEDS: ENOXAPARIN 80 MG/0.8 ML SYG SC ×2 (08:56→22:04)
[2018-09-28] MEDS: SOD CHLORIDE 0.9% IVPB (16:18)
[2018-09-28] MEDS: DAPTOMYCIN IVPB (16:18)
[2018-09-28] MEDS: SOD CHLORIDE 0.45% 1,000 ML IV (16:18)
[2018-09-28 17:01] LABS: ADD UMIC YES; UR ASCORBIC ACID NEGATIVE (NEGATIVE); UR BACTERIA FEW /HPF (NONE SEEN); UR BILIRUBIN (Dip) NEGATIVE (NEGATIVE); UR BLOOD (Dip) NEGATIVE (NEGATIVE); UR CLARITY CLEAR (CLEAR); UR COLOR YELLOW (YELLOW); UR GLUCOSE (Dip) NEGATIVE (NEGATIVE); UR KETONES (Dip) NEGATIVE (NEGATIVE); UR LEUKOCYTE ESTERASE (Dip) TRACE Leu/ul (NEGATIVE); UR NITRITE (Dip) NEGATIVE (NEGATIVE); UR NONSQUAMOUS EPITHELIAL CELL 1 /HPF (NONE SEEN); UR RBC 5 /HPF (0-5); UR SPECIFIC GRAVITY (Dip) 1.012 (1.003-1.030); UR SQUAMOUS EPITHELIAL CELL MODERATE /HPF (FEW); UR TOTAL PROTEIN (Dip) 3+ mg/dl (NEGATIVE); UR UROBILINOGEN (Dip) NEGATIVE (NEGATIVE); UR WBC 17 /HPF (0-5)
[2018-09-28 17:17] LABS: CREATININE,URINE RANDOM 52.97 mg/dl (20-320)
[2018-09-28 17:17] LABS: SODIUM,URINE RANDOM 48 mmol/L (30-90)
[2018-09-28] MEDS: CEFEPIME 1GM/50 ML (PMX) 50 ML IVPB (22:02)
[2018-09-28] MEDS: MONTELUKAST 10 MG TAB PO (22:07)
[2018-09-28] MEDS: DOCUSATE SODIUM 100 MG CAP PO (22:09)
[2018-09-29] MEDS: SOD CHLORIDE 0.45% 1,000 ML IV ×4 (04:52→22:00)
[2018-09-29 05:42] LABS: ADD MAN DIFF? NO
[2018-09-29 05:48] LABS: WHITE BLOOD COUNT 5.8 10^3/ul (4.8-10.8)
[2018-09-29 05:48] LABS: BASOPHILS % 0.3 % (0.0-2.0); EOSINOPHILS # 0.1 10^3/ul (0.0-0.5); EOSINOPHILS % 1.7 % (0.0-7.0); HEMOGLOBIN 8.5 g/dl (12.0-16.0); LYMPHOCYTES # 1.1 10^3/ul (0.8-2.9); LYMPHOCYTES % 18.5 % (15.0-51.0); MEAN CORPUSCULAR HEMOGLOBIN 27.1 pg (29.0-33.0); MEAN CORPUSCULAR HGB CONC 30.4 g/dl (32.0-37.0); MEAN CORPUSCULAR VOLUME 89.2 fl (82.0-101.0); MEAN PLATELET VOLUME 10.7 fl (7.4-10.4); MONOCYTE # 0.4 10^3/ul (0.3-0.9); MONOCYTES % 7.3 % (0.0-11.0); NEUTROPHIL # 4.1 10^3/ul (1.6-7.5); NEUTROPHILS % 71.7 % (39.0-77.0); PLATELET COUNT 252 10^3/UL (140-415); RED BLOOD COUNT 3.14 10^6/ul (4.20-5.40); RED CELL DISTRIBUTION WIDTH 15.8 % (11.5-14.5)
[2018-09-29] MEDS: hydrALAzine 20 MG INJ IV ×2 (05:54→12:27)
[2018-09-29 06:06] LABS: ANION GAP 5 (5-13); BLOOD UREA NITROGEN 30 mg/dl (7-20); CALCIUM 8.1 mg/dl (8.4-10.2); CARBON DIOXIDE 25 mmol/L (21-31); CHLORIDE 109 mmol/L (97-110); CREATININE 1.18 mg/dl (0.44-1.00); Estimated GFR 48 mL/min (>60); GLUCOSE 104 mg/dl (70-220); MAGNESIUM 1.9 mg/dl (1.7-2.5); PHOSPHORUS 4.2 mg/dl (2.5-4.9); POTASSIUM 4.6 mmol/L (3.5-5.1); SODIUM 139 mmol/L (135-144)
[2018-09-29] MEDS ORDERED: LIDOCAINE 2% (SDV) 5 ML INJ (07:00)
[2018-09-29] MEDS: INSULIN ASPART [NOVOLOG] 3 ML PEN SC ×7 (08:00→21:00)
[2018-09-29] MEDS: ENOXAPARIN 80 MG/0.8 ML SYG SC (08:28)
[2018-09-29] MEDS: INSULIN DETEMIR [LEVEMIR] (100 UNITS/ML) SYG SC (08:29)
[2018-09-29] MEDS: SODIUM HYPOCHLORITE (1/40) 1 APPLIC BTL IRR (08:30)
[2018-09-29] MEDS: METOPROLOL 50 MG TAB PO ×2 (08:30→21:03)
[2018-09-29] MEDS: ASPIRIN 81 MG TAB PO (08:30)
[2018-09-29] MEDS: AMLODIPINE 10 MG TAB PO (08:31)
[2018-09-29] MEDS: CLOPIDOGREL 75 MG TAB PO (08:31)
[2018-09-29] MEDS: NEOMYC/POLYMYX/BACIT 30 GM OINT TOP (08:31)
[2018-09-29] MEDS: CEFEPIME 1GM/50 ML (PMX) 50 ML IVPB ×2 (09:25→21:01)
[2018-09-29] MEDS: LABETALOL HCL 20MG INJ IV ×2 (09:26→15:27)
[2018-09-29] MEDS: morphine 2 MG INJ IV ×2 (12:27→21:31)
[2018-09-29] MEDS: DAPTOMYCIN IVPB (15:47)
[2018-09-29] MEDS: SOD CHLORIDE 0.9% IVPB (15:47)
[2018-09-29] MEDS ORDERED: MIDAZOLAM 1 MG/ML 2 ML INJ (18:19)
[2018-09-29] MEDS ORDERED: PROPOFOL 20 ML (18:25)
[2018-09-29] MEDS ORDERED: FENTAnyl 50 MCG/ML VIAL IV (18:30)
[2018-09-29] MEDS: MONTELUKAST 10 MG TAB PO (21:02)
[2018-09-29] MEDS: DOCUSATE SODIUM 100 MG CAP PO (21:03)
[2018-09-30] MEDS: morphine 2 MG INJ IV (04:56)
[2018-09-30 06:18] LABS: ABNORMAL IP MESSAGE 1; HEMATOCRIT 17.5 % (37.0-47.0); MEAN CORPUSCULAR HEMOGLOBIN 27.7 pg (29.0-33.0); MEAN CORPUSCULAR HGB CONC 30.9 g/dl (32.0-37.0); MEAN CORPUSCULAR VOLUME 89.7 fl (82.0-101.0); MEAN PLATELET VOLUME 11.3 fl (7.4-10.4); PLATELET COUNT 218 10^3/UL (140-415); RED BLOOD COUNT 1.95 10^6/ul (4.20-5.40); RED CELL DISTRIBUTION WIDTH 15.9 % (11.5-14.5)
[2018-09-30 06:18] LABS: WHITE BLOOD COUNT 5.9 10^3/ul (4.8-10.8)
[2018-09-30] MEDS: HYDROCODONE/APAP (5/325) TAB PO (06:21)
[2018-09-30 06:52] LABS: CREATINE KINASE 53 IU/L (23-200)
[2018-09-30 07:05] LABS: ADD MAN DIFF? YES; HEMOGLOBIN 5.4 g/dl (12.0-16.0); POSITIVE DIFF @See below
[2018-09-30 07:06] LABS: PATH REVIEW? YES
[2018-09-30 07:07] LABS: ANION GAP 4 (5-13); BLOOD UREA NITROGEN 28 mg/dl (7-20); CALCIUM 7.6 mg/dl (8.4-10.2); CARBON DIOXIDE 29 mmol/L (21-31); CHLORIDE 108 mmol/L (97-110); CREATININE 1.09 mg/dl (0.44-1.00); Estimated GFR 52 mL/min (>60); GLUCOSE 135 mg/dl (70-220); MAGNESIUM 1.8 mg/dl (1.7-2.5); PHOSPHORUS 4.5 mg/dl (2.5-4.9); POTASSIUM 4.8 mmol/L (3.5-5.1); SODIUM 141 mmol/L (135-144)
[2018-09-30] MEDS: SOD CHLORIDE 0.45% 1,000 ML IV ×2 (08:00→17:30)
[2018-09-30] MEDS: INSULIN ASPART [NOVOLOG] 3 ML PEN SC ×7 (08:00→20:55)
[2018-09-30] MEDS: ONDANSETRON 4 MG INJ IV (08:13)
[2018-09-30] MEDS: AMLODIPINE 10 MG TAB PO (08:22)
[2018-09-30] MEDS: METOPROLOL 50 MG TAB PO ×2 (08:22→20:54)
[2018-09-30] MEDS: CLOPIDOGREL 75 MG TAB PO (08:23)
[2018-09-30] MEDS: ASPIRIN 81 MG TAB PO (08:24)
[2018-09-30] MEDS: CEFEPIME 1GM/50 ML (PMX) 50 ML IVPB ×2 (08:27→20:53)
[2018-09-30] MEDS: INSULIN DETEMIR [LEVEMIR] (100 UNITS/ML) SYG SC (08:49)
[2018-09-30 08:51] LABS: ANISOCYTOSIS 1+ (0-0); BAND NEUTROPHILS #M 0.2 10^3/ul (0.0-0.6); BAND NEUTROPHILS % (M) 4 % (0-4); EOSINOPHILS % (M) 1 % (0-7); GIANT THROMBO% (M) 3 % (0-0); LYMPHOCYTES #M 0.7 10^3/ul (0.8-2.9); LYMPHOCYTES % (M) 12 % (15-51); MICROCYTOSIS 1+ (0-0); MONOCYTE #M 0.2 10^3/ul (0.3-0.9); MONOCYTES % (M) 4 % (0-11); OVALOCYTES 1+ (0-0); PLATELET ESTIMATE NORMAL; POLYCHROMASIA 1+ (0-0); SEG NEUT #M 4.7 10^3/ul (1.6-7.5); SEGMENTED NEUTROPHILS (M) % 79 % (39-77); SMUDGE%M 8 % (0-0)
[2018-09-30] MEDS: FAMOTIDINE 20 MG INJ IV (11:30)
[2018-09-30] MEDS: PANTOPRAZOLE 40 MG INJ IV (11:30)
[2018-09-30] MEDS: SUCRALFATE (100 MG/ML) 10ML CUP PO ×3 (12:06→20:54)
[2018-09-30 16:16] LABS: CREATININE, RANDOM URINE 58 mg/dL (20-275); MICROALBUMIN 61.7 mg/dL; MICROALBUMIN/CREATININE RATIO 1064 (<30)
[2018-09-30] MEDS: SOD CHLORIDE 0.9% IVPB (17:39)
[2018-09-30] MEDS: DAPTOMYCIN IVPB (17:39)
[2018-09-30] MEDS: SILVER NITRATE SWAB TOP (18:30)
[2018-09-30] MEDS: MONTELUKAST 10 MG TAB PO (20:54)
[2018-09-30] MEDS: DOCUSATE SODIUM 100 MG CAP PO (20:56)
[2018-10-01] MEDS: SOD CHLORIDE 0.45% 1,000 ML IV ×2 (04:00→13:13)
[2018-10-01] MEDS: PANTOPRAZOLE 40 MG INJ IV (05:39)
[2018-10-01] MEDS: hydrALAzine 20 MG INJ IV (05:43)
[2018-10-01 08:25] LABS: ADD MAN DIFF? NO
[2018-10-01 08:29] LABS: BASOPHILS % 0.3 % (0.0-2.0); EOSINOPHILS # 0.1 10^3/ul (0.0-0.5); EOSINOPHILS % 1.3 % (0.0-7.0); HEMATOCRIT 24.4 % (37.0-47.0); HEMOGLOBIN 7.8 g/dl (12.0-16.0); LYMPHOCYTES # 1.1 10^3/ul (0.8-2.9); LYMPHOCYTES % 16.3 % (15.0-51.0); MEAN CORPUSCULAR HEMOGLOBIN 28.2 pg (29.0-33.0); MEAN CORPUSCULAR VOLUME 88.1 fl (82.0-101.0); MEAN PLATELET VOLUME 10.8 fl (7.4-10.4); MONOCYTE # 0.5 10^3/ul (0.3-0.9); MONOCYTES % 7.6 % (0.0-11.0); NEUTROPHIL # 5.1 10^3/ul (1.6-7.5); NEUTROPHILS % 73.5 % (39.0-77.0); PLATELET COUNT 224 10^3/UL (140-415); RED BLOOD COUNT 2.77 10^6/ul (4.20-5.40); RED CELL DISTRIBUTION WIDTH 15.4 % (11.5-14.5)
[2018-10-01] MEDS: AMLODIPINE 10 MG TAB PO (08:30)
[2018-10-01] MEDS: METOPROLOL 50 MG TAB PO ×2 (08:30→20:19)
[2018-10-01] MEDS: SUCRALFATE (100 MG/ML) 10ML CUP PO ×4 (08:32→20:19)
[2018-10-01] MEDS: CLOPIDOGREL 75 MG TAB PO (08:34)
[2018-10-01] MEDS: ASPIRIN 81 MG TAB PO (08:35)
[2018-10-01] MEDS: CEFEPIME 1GM/50 ML (PMX) 50 ML IVPB (08:39)
[2018-10-01 08:47] LABS: ANION GAP 3 (5-13); BLOOD UREA NITROGEN 26 mg/dl (7-20); CALCIUM 8.1 mg/dl (8.4-10.2); CARBON DIOXIDE 27 mmol/L (21-31); CHLORIDE 109 mmol/L (97-110); CREATININE 1.06 mg/dl (0.44-1.00); Estimated GFR 54 mL/min (>60); GLUCOSE 208 mg/dl (70-220); PHOSPHORUS 3.4 mg/dl (2.5-4.9); POTASSIUM 4.7 mmol/L (3.5-5.1); SODIUM 139 mmol/L (135-144)
[2018-10-01] MEDS: INSULIN ASPART [NOVOLOG] 3 ML PEN SC ×7 (08:49→20:26)
[2018-10-01] MEDS: INSULIN DETEMIR [LEVEMIR] (100 UNITS/ML) SYG SC (08:50)
[2018-10-01] MEDS: BISACODYL (EC) 5 MG TAB PO (12:16)
[2018-10-01] MEDS: ONDANSETRON 4 MG INJ IV (12:34)
[2018-10-01] MEDS: DAPTOMYCIN IVPB (17:29)
[2018-10-01] MEDS: SOD CHLORIDE 0.9% IVPB (17:29)
[2018-10-01] MEDS: MONTELUKAST 10 MG TAB PO (20:19)
[2018-10-01] MEDS: DOCUSATE SODIUM 100 MG CAP PO (20:19)
[2018-10-01] MEDS: HYDROCODONE/APAP (5/325) TAB PO (23:20)
[2018-10-02] MEDS: PANTOPRAZOLE 40 MG INJ IV (05:18)
[2018-10-02 05:25] LABS: ADD MAN DIFF? NO
[2018-10-02 05:32] LABS: ABNORMAL IP MESSAGE 1; BASOPHILS % 0.3 % (0.0-2.0); EOSINOPHILS # 0.1 10^3/ul (0.0-0.5); EOSINOPHILS % 1.8 % (0.0-7.0); HEMATOCRIT 21.9 % (37.0-47.0); LYMPHOCYTES # 1.4 10^3/ul (0.8-2.9); MEAN CORPUSCULAR HEMOGLOBIN 27.9 pg (29.0-33.0); MEAN CORPUSCULAR HGB CONC 31.5 g/dl (32.0-37.0); MEAN CORPUSCULAR VOLUME 88.7 fl (82.0-101.0); MEAN PLATELET VOLUME 10.6 fl (7.4-10.4); MONOCYTE # 0.5 10^3/ul (0.3-0.9); MONOCYTES % 7.5 % (0.0-11.0); NEUTROPHIL # 4.8 10^3/ul (1.6-7.5); NEUTROPHILS % 69.8 % (39.0-77.0); PLATELET COUNT 240 10^3/UL (140-415); RED BLOOD COUNT 2.47 10^6/ul (4.20-5.40); RED CELL DISTRIBUTION WIDTH 15.9 % (11.5-14.5)
[2018-10-02 05:32] LABS: WHITE BLOOD COUNT 6.8 10^3/ul (4.8-10.8)
[2018-10-02 06:31] LABS: ANION GAP 4 (5-13); BLOOD UREA NITROGEN 24 mg/dl (7-20); CALCIUM 8.1 mg/dl (8.4-10.2); CARBON DIOXIDE 29 mmol/L (21-31); CHLORIDE 108 mmol/L (97-110); CREATININE 1.04 mg/dl (0.44-1.00); Estimated GFR 55 mL/min (>60); GLUCOSE 109 mg/dl (70-220); MAGNESIUM 1.9 mg/dl (1.7-2.5); PHOSPHORUS 3.1 mg/dl (2.5-4.9); POTASSIUM 4.8 mmol/L (3.5-5.1); SODIUM 141 mmol/L (135-144)
[2018-10-02 06:44] LABS: HEMOGLOBIN 6.9 g/dl (12.0-16.0); POSITIVE DIFF @See below
[2018-10-02] MEDS: INSULIN ASPART [NOVOLOG] 3 ML PEN SC ×7 (08:00→20:35)
[2018-10-02] MEDS: ASPIRIN 81 MG TAB PO (08:14)
[2018-10-02] MEDS: CLOPIDOGREL 75 MG TAB PO (08:14)
[2018-10-02] MEDS: METOPROLOL 50 MG TAB PO ×2 (08:16→20:34)
[2018-10-02] MEDS: AMLODIPINE 10 MG TAB PO (08:16)
[2018-10-02] MEDS: SUCRALFATE (100 MG/ML) 10ML CUP PO ×4 (08:16→20:35)
[2018-10-02] MEDS: INSULIN DETEMIR [LEVEMIR] (100 UNITS/ML) SYG SC (08:19)
[2018-10-02] MEDS: SOD CHLORIDE 0.45% 1,000 ML IV ×4 (10:00→20:37)
[2018-10-02 13:54] LABS: IMMEDIATE SPIN CROSSMATCH 1 5
[2018-10-02] MEDS: SOD CHLORIDE 0.9% IVPB (17:46)
[2018-10-02] MEDS: DAPTOMYCIN IVPB (17:46)
[2018-10-02] MEDS: DOCUSATE SODIUM 100 MG CAP PO (20:34)
[2018-10-02] MEDS: MONTELUKAST 10 MG TAB PO (20:35)
[2018-10-02] MEDS: morphine 2 MG INJ IV (21:25)
[2018-10-02] MEDS: hydrALAzine 20 MG INJ IV (21:36)
[2018-10-02] MEDS: BISACODYL (EC) 5 MG TAB PO (23:25)
[2018-10-03] MEDS: morphine 2 MG INJ IV ×2 (03:10→17:53)
[2018-10-03] MEDS: hydrALAzine 20 MG INJ IV ×2 (04:44→08:12)
[2018-10-03] MEDS: MAGNESIUM HYDROXIDE 30ML CUP PO (05:00)
[2018-10-03 05:34] LABS: WHITE BLOOD COUNT 7.9 10^3/ul (4.8-10.8)
[2018-10-03 05:34] LABS: ADD MAN DIFF? NO; BASOPHILS % 0.3 % (0.0-2.0); EOSINOPHILS # 0.1 10^3/ul (0.0-0.5); HEMATOCRIT 27.6 % (37.0-47.0); HEMOGLOBIN 8.7 g/dl (12.0-16.0); LYMPHOCYTES # 1.2 10^3/ul (0.8-2.9); LYMPHOCYTES % 15.5 % (15.0-51.0); MEAN CORPUSCULAR HEMOGLOBIN 28.3 pg (29.0-33.0); MEAN CORPUSCULAR HGB CONC 31.5 g/dl (32.0-37.0); MEAN CORPUSCULAR VOLUME 89.9 fl (82.0-101.0); MEAN PLATELET VOLUME 10.5 fl (7.4-10.4); MONOCYTE # 0.6 10^3/ul (0.3-0.9); MONOCYTES % 7.7 % (0.0-11.0); NEUTROPHIL # 5.9 10^3/ul (1.6-7.5); NEUTROPHILS % 74.9 % (39.0-77.0); PLATELET COUNT 266 10^3/UL (140-415); RED BLOOD COUNT 3.07 10^6/ul (4.20-5.40); RED CELL DISTRIBUTION WIDTH 16.6 % (11.5-14.5)
[2018-10-03] MEDS: SOD CHLORIDE 0.45% 1,000 ML IV ×2 (06:00→16:00)
[2018-10-03] MEDS: PANTOPRAZOLE 40 MG INJ IV (06:03)
[2018-10-03 06:16] LABS: ANION GAP 4 (5-13); BLOOD UREA NITROGEN 22 mg/dl (7-20); CALCIUM 8.5 mg/dl (8.4-10.2); CARBON DIOXIDE 28 mmol/L (21-31); CHLORIDE 108 mmol/L (97-110); CREATININE 1.13 mg/dl (0.44-1.00); Estimated GFR 50 mL/min (>60); GLUCOSE 110 mg/dl (70-220); PHOSPHORUS 3.8 mg/dl (2.5-4.9); POTASSIUM 4.7 mmol/L (3.5-5.1); SODIUM 140 mmol/L (135-144)
[2018-10-03] MEDS: LABETALOL HCL 20MG INJ IV (07:11)
[2018-10-03 07:29] LABS: ADD MAN DIFF? NO
[2018-10-03 07:30] LABS: WHITE BLOOD COUNT 8.4 10^3/ul (4.8-10.8)
[2018-10-03 07:30] LABS: BASOPHILS % 0.2 % (0.0-2.0); EOSINOPHILS % 0.4 % (0.0-7.0); HEMATOCRIT 28.7 % (37.0-47.0); HEMOGLOBIN 9.1 g/dl (12.0-16.0); LYMPHOCYTES # 1.6 10^3/ul (0.8-2.9); LYMPHOCYTES % 18.8 % (15.0-51.0); MEAN CORPUSCULAR HEMOGLOBIN 28.4 pg (29.0-33.0); MEAN CORPUSCULAR HGB CONC 31.7 g/dl (32.0-37.0); MEAN CORPUSCULAR VOLUME 89.7 fl (82.0-101.0); MEAN PLATELET VOLUME 10.1 fl (7.4-10.4); MONOCYTE # 0.6 10^3/ul (0.3-0.9); MONOCYTES % 7.3 % (0.0-11.0); NEUTROPHIL # 6.1 10^3/ul (1.6-7.5); NEUTROPHILS % 72.8 % (39.0-77.0); PLATELET COUNT 282 10^3/UL (140-415); RED CELL DISTRIBUTION WIDTH 16.3 % (11.5-14.5)
[2018-10-03] MEDS: INSULIN ASPART [NOVOLOG] 3 ML PEN SC ×7 (07:35→21:00)
[2018-10-03 07:50] LABS: AADO2 Arterial 73.5 mmHg (7.0-24.0); Allen Test ACCEPTAB; Arterial Base Excess 2.4 mmol/L (-3.0-3); Arterial Blood Gas Oxygen Sat 93.3 mmHG (95.0-98.0); Arterial COHb 0.3 % (0.0-3.0); Arterial Fraction of Oxyhgb 92.6 % (93.0-99.0); Arterial HCO3 27.1 mmol/L (22.0-26.0); Arterial MetHb 0.4 % (0.0-1.5); Arterial pCO2 42.9 mmhg (35-45); MODE NASAL CANNULA; Site Left Radial
[2018-10-03 07:56] LABS: ANION GAP 6 (5-13); BLOOD UREA NITROGEN 22 mg/dl (7-20); CALCIUM 8.4 mg/dl (8.4-10.2); CARBON DIOXIDE 27 mmol/L (21-31); CHLORIDE 108 mmol/L (97-110); Estimated GFR 52 mL/min (>60); GLUCOSE 122 mg/dl (70-220); POTASSIUM 4.9 mmol/L (3.5-5.1); SODIUM 141 mmol/L (135-144)
[2018-10-03] MEDS: INSULIN DETEMIR [LEVEMIR] (100 UNITS/ML) SYG SC (08:00)
[2018-10-03 08:08] LABS: TROPONIN-I 0.025 ng/ml (0.000-0.120)
[2018-10-03] MEDS: ASPIRIN 81 MG TAB PO (09:00)
[2018-10-03] MEDS: SUCRALFATE (100 MG/ML) 10ML CUP PO ×4 (09:00→20:17)
[2018-10-03] MEDS: CLOPIDOGREL 75 MG TAB PO (09:00)
[2018-10-03 09:33] LABS: AMMONIA 15 umol/l (9-30)
[2018-10-03 09:33] LABS: LACTIC ACID 0.8 mmol/L (0.5-2.0)
[2018-10-03 11:09] LABS: CHOL/HDL RATIO 4.1 RATIO; HDL CHOLESTEROL 42 mg/dl (37-92); LDL CHOLESTEROL,CALCULATED 96 mg/dl; TRIGLYCERIDES 176 mg/dl (0-149)
[2018-10-03 11:09] LABS: CHOLESTEROL 173 mg/dl (100-200)
[2018-10-03] MEDS: METOCLOPRAMIDE 10 MG INJ IV (17:53)
[2018-10-03] MEDS: SOD CHLORIDE 0.9% IVPB (17:53)
[2018-10-03] MEDS: DAPTOMYCIN IVPB (17:53)
[2018-10-03 18:21] LABS: LIPASE 26 U/L (23-300)
[2018-10-03] MEDS: AL HYDROX/MG HYDROX/SIMETH 30 ML CUP PO (20:17)
[2018-10-03] MEDS: MONTELUKAST 10 MG TAB PO (20:17)
[2018-10-03] MEDS: ATORVASTATIN 40 MG TAB PO (20:17)
[2018-10-03] MEDS: DOCUSATE SODIUM 100 MG CAP PO (20:18)
[2018-10-04] MEDS: SOD CHLORIDE 0.45% 1,000 ML IV ×2 (05:42→12:37)
[2018-10-04] MEDS: PANTOPRAZOLE 40 MG INJ IV (05:42)
[2018-10-04 06:13] LABS: ADD MAN DIFF? NO
[2018-10-04 06:18] LABS: WHITE BLOOD COUNT 7.7 10^3/ul (4.8-10.8)
[2018-10-04 06:18] LABS: BASOPHILS % 0.1 % (0.0-2.0); EOSINOPHILS # 0.1 10^3/ul (0.0-0.5); EOSINOPHILS % 1.3 % (0.0-7.0); HEMATOCRIT 28.1 % (37.0-47.0); LYMPHOCYTES # 1.1 10^3/ul (0.8-2.9); LYMPHOCYTES % 13.8 % (15.0-51.0); MEAN CORPUSCULAR HEMOGLOBIN 28.7 pg (29.0-33.0); MEAN CORPUSCULAR VOLUME 89.5 fl (82.0-101.0); MEAN PLATELET VOLUME 10.1 fl (7.4-10.4); MONOCYTE # 0.5 10^3/ul (0.3-0.9); MONOCYTES % 6.5 % (0.0-11.0); NEUTROPHILS % 77.8 % (39.0-77.0); PLATELET COUNT 303 10^3/UL (140-415); RED BLOOD COUNT 3.14 10^6/ul (4.20-5.40); RED CELL DISTRIBUTION WIDTH 16.1 % (11.5-14.5)
[2018-10-04 06:42] LABS: ANION GAP 4 (5-13); BLOOD UREA NITROGEN 19 mg/dl (7-20); CALCIUM 8.5 mg/dl (8.4-10.2); CARBON DIOXIDE 29 mmol/L (21-31); CHLORIDE 107 mmol/L (97-110); CREATININE 0.92 mg/dl (0.44-1.00); Estimated GFR > 60 mL/min (>60); GLUCOSE 98 mg/dl (70-220); PHOSPHORUS 4.1 mg/dl (2.5-4.9); POTASSIUM 4.3 mmol/L (3.5-5.1); SODIUM 140 mmol/L (135-144)
[2018-10-04] MEDS: INSULIN ASPART [NOVOLOG] 3 ML PEN SC ×7 (07:35→21:00)
[2018-10-04] MEDS: ASPIRIN 81 MG TAB PO (07:49)
[2018-10-04] MEDS: SUCRALFATE (100 MG/ML) 10ML CUP PO ×4 (07:50→21:37)
[2018-10-04] MEDS: POLYETHYLENE GLYCOL 17 GM PACKET PO (07:50)
[2018-10-04] MEDS: CLOPIDOGREL 75 MG TAB PO (07:50)
[2018-10-04] MEDS: BISACODYL (EC) 5 MG TAB PO (07:50)
[2018-10-04] MEDS: BISACODYL 10 MG SUPP PR (08:56)
[2018-10-04] MEDS: AMLODIPINE 10 MG TAB PO (08:56)
[2018-10-04] MEDS: METOPROLOL 50 MG TAB PO ×2 (08:56→21:40)
[2018-10-04] MEDS: LACTULOSE 30ML CUP PO (08:56)
[2018-10-04] MEDS: INSULIN DETEMIR [LEVEMIR] (100 UNITS/ML) SYG SC (09:19)
[2018-10-04] MEDS: hydrALAzine 20 MG INJ IV ×3 (09:24→16:54)
[2018-10-04] MEDS: morphine 2 MG INJ IV ×3 (11:03→19:25)
[2018-10-04] MEDS: NA PHOSPHATE/BIPHOS 133 ML ENEMA PR (11:15)
[2018-10-04] MEDS: METOCLOPRAMIDE 10 MG INJ IV (13:15)
[2018-10-04 14:19] LABS: LACTIC ACID 0.7 mmol/L (0.5-2.0)
[2018-10-04] MEDS: DAPTOMYCIN IVPB (16:08)
[2018-10-04] MEDS: SOD CHLORIDE 0.9% IVPB (16:08)
[2018-10-04] MEDS: DEXTROSE 5%-0.45% NACL 1,000 ML IV (17:24)
[2018-10-04] MEDS: SOD CHLORIDE 0.9% 100 ML (18:16)
[2018-10-04] MEDS: IOHEXOL 300MG/ML 150 ML BTL (18:16)
[2018-10-04] MEDS: MONTELUKAST 10 MG TAB PO (21:37)
[2018-10-04] MEDS: DOCUSATE SODIUM 100 MG CAP PO (21:37)
[2018-10-04] MEDS: ATORVASTATIN 40 MG TAB PO (21:41)
[2018-10-05] MEDS: hydrALAzine 20 MG INJ IV (03:22)
[2018-10-05] MEDS: DEXTROSE 5%-0.45% NACL 1,000 ML IV (04:50)
[2018-10-05 05:29] LABS: ADD MAN DIFF? NO
[2018-10-05] MEDS: PANTOPRAZOLE 40 MG INJ IV (05:38)
[2018-10-05 05:44] LABS: BASOPHILS % 0.3 % (0.0-2.0); EOSINOPHILS # 0.1 10^3/ul (0.0-0.5); EOSINOPHILS % 1.8 % (0.0-7.0); HEMOGLOBIN 8.6 g/dl (12.0-16.0); LYMPHOCYTES # 0.9 10^3/ul (0.8-2.9); LYMPHOCYTES % 12.3 % (15.0-51.0); MEAN CORPUSCULAR HEMOGLOBIN 28.6 pg (29.0-33.0); MEAN CORPUSCULAR HGB CONC 31.9 g/dl (32.0-37.0); MEAN CORPUSCULAR VOLUME 89.7 fl (82.0-101.0); MONOCYTE # 0.5 10^3/ul (0.3-0.9); MONOCYTES % 6.7 % (0.0-11.0); NEUTROPHILS % 78.6 % (39.0-77.0); PLATELET COUNT 321 10^3/UL (140-415); RED BLOOD COUNT 3.01 10^6/ul (4.20-5.40); RED CELL DISTRIBUTION WIDTH 15.9 % (11.5-14.5)
[2018-10-05 05:44] LABS: WHITE BLOOD COUNT 7.6 10^3/ul (4.8-10.8)
[2018-10-05 06:17] LABS: ANION GAP 3 (5-13); BLOOD UREA NITROGEN 19 mg/dl (7-20); CALCIUM 8.2 mg/dl (8.4-10.2); CARBON DIOXIDE 29 mmol/L (21-31); CHLORIDE 106 mmol/L (97-110); CREATININE 0.83 mg/dl (0.44-1.00); Estimated GFR > 60 mL/min (>60); GLUCOSE 119 mg/dl (70-220); MAGNESIUM 1.9 mg/dl (1.7-2.5); POTASSIUM 3.9 mmol/L (3.5-5.1); SODIUM 138 mmol/L (135-144)
[2018-10-05] MEDS: INSULIN ASPART [NOVOLOG] 3 ML PEN SC ×6 (07:35→17:08)
[2018-10-05] MEDS: ASPIRIN 81 MG TAB PO (08:27)
[2018-10-05] MEDS: AMLODIPINE 10 MG TAB PO (08:29)
[2018-10-05] MEDS: METOPROLOL 50 MG TAB PO (08:30)
[2018-10-05] MEDS: SUCRALFATE (100 MG/ML) 10ML CUP PO ×3 (08:30→17:01)
[2018-10-05] MEDS: CLOPIDOGREL 75 MG TAB PO (08:30)
[2018-10-05] MEDS: INSULIN DETEMIR [LEVEMIR] (100 UNITS/ML) SYG SC (08:37)
[2018-10-05] MEDS: FUROSEMIDE 40 MG INJ IV (11:03)
[2018-10-05] MEDS: DAPTOMYCIN IVPB (17:02)
[2018-10-05] MEDS: SOD CHLORIDE 0.9% IVPB (17:02)
[2018-10-06] MEDS: HYDROCODONE/APAP (5/325) TAB PO ×2 (00:56→19:23)
[2018-10-06] MEDS: ATORVASTATIN 40 MG TAB PO ×2 (00:57→20:23)
[2018-10-06] MEDS: METOPROLOL 50 MG TAB PO ×3 (00:57→20:23)
[2018-10-06] MEDS: INSULIN ASPART [NOVOLOG] 3 ML PEN SC ×8 (00:59→20:23)
[2018-10-06] MEDS: DOCUSATE SODIUM 100 MG CAP PO ×2 (01:43→19:22)
[2018-10-06] MEDS: SUCRALFATE (100 MG/ML) 10ML CUP PO ×5 (01:43→20:23)
[2018-10-06] MEDS: MONTELUKAST 10 MG TAB PO ×2 (01:43→20:22)
[2018-10-06] MEDS: BISACODYL 10 MG SUPP PR (02:42)
[2018-10-06] MEDS: PANTOPRAZOLE 40 MG INJ IV (05:28)
[2018-10-06 08:20] LABS: ADD MAN DIFF? NO
[2018-10-06 08:26] LABS: WHITE BLOOD COUNT 6.6 10^3/ul (4.8-10.8)
[2018-10-06 08:26] LABS: BASOPHILS % 0.3 % (0.0-2.0); EOSINOPHILS # 0.1 10^3/ul (0.0-0.5); EOSINOPHILS % 1.7 % (0.0-7.0); HEMATOCRIT 27.1 % (37.0-47.0); HEMOGLOBIN 8.7 g/dl (12.0-16.0); LYMPHOCYTES % 15.7 % (15.0-51.0); MEAN CORPUSCULAR HEMOGLOBIN 28.8 pg (29.0-33.0); MEAN CORPUSCULAR HGB CONC 32.1 g/dl (32.0-37.0); MEAN CORPUSCULAR VOLUME 89.7 fl (82.0-101.0); MEAN PLATELET VOLUME 9.9 fl (7.4-10.4); MONOCYTE # 0.5 10^3/ul (0.3-0.9); MONOCYTES % 6.9 % (0.0-11.0); NEUTROPHILS % 74.9 % (39.0-77.0); PLATELET COUNT 319 10^3/UL (140-415); RED BLOOD COUNT 3.02 10^6/ul (4.20-5.40); RED CELL DISTRIBUTION WIDTH 15.4 % (11.5-14.5)
[2018-10-06 08:57] LABS: ANION GAP 2 (5-13); BLOOD UREA NITROGEN 19 mg/dl (7-20); CALCIUM 8.1 mg/dl (8.4-10.2); CARBON DIOXIDE 30 mmol/L (21-31); CHLORIDE 107 mmol/L (97-110); CREATININE 0.92 mg/dl (0.44-1.00); Estimated GFR > 60 mL/min (>60); GLUCOSE 120 mg/dl (70-220); MAGNESIUM 1.9 mg/dl (1.7-2.5); PHOSPHORUS 3.9 mg/dl (2.5-4.9); POTASSIUM 3.7 mmol/L (3.5-5.1); SODIUM 139 mmol/L (135-144)
[2018-10-06] MEDS: BISACODYL (EC) 5 MG TAB PO (09:13)
[2018-10-06] MEDS: ASPIRIN 81 MG TAB PO (09:13)
[2018-10-06] MEDS: CLOPIDOGREL 75 MG TAB PO (09:13)
[2018-10-06] MEDS: POLYETHYLENE GLYCOL 17 GM PACKET PO (09:19)
[2018-10-06] MEDS: AMLODIPINE 10 MG TAB PO (09:19)
[2018-10-06] MEDS: INSULIN DETEMIR [LEVEMIR] (100 UNITS/ML) SYG SC (09:21)
[2018-10-06] MEDS: hydrALAzine 20 MG INJ IV (11:45)
[2018-10-06] MEDS ORDERED: LIDOCAINE 1% (MPF) 5 ML VIAL SC (13:00)
[2018-10-06] MEDS: SOD CHLORIDE 0.9% IVPB (16:22)
[2018-10-06] MEDS: DAPTOMYCIN IVPB (16:22)
[2018-10-06] MEDS: ONDANSETRON 4 MG INJ IV (20:22)
[2018-10-06] MEDS: morphine 2 MG INJ IV (20:22)
[2018-10-07] MEDS: PANTOPRAZOLE 40 MG INJ IV (04:48)
[2018-10-07] MEDS: morphine 2 MG INJ IV (04:48)
[2018-10-07 06:47] LABS: ADD MAN DIFF? NO
[2018-10-07 06:53] LABS: BASOPHILS % 0.3 % (0.0-2.0); EOSINOPHILS # 0.1 10^3/ul (0.0-0.5); EOSINOPHILS % 2.1 % (0.0-7.0); HEMATOCRIT 28.6 % (37.0-47.0); LYMPHOCYTES # 1.2 10^3/ul (0.8-2.9); LYMPHOCYTES % 18.3 % (15.0-51.0); MEAN CORPUSCULAR HEMOGLOBIN 28.6 pg (29.0-33.0); MEAN CORPUSCULAR HGB CONC 31.5 g/dl (32.0-37.0); MEAN CORPUSCULAR VOLUME 90.8 fl (82.0-101.0); MEAN PLATELET VOLUME 9.5 fl (7.4-10.4); MONOCYTE # 0.5 10^3/ul (0.3-0.9); MONOCYTES % 7.1 % (0.0-11.0); NEUTROPHIL # 4.9 10^3/ul (1.6-7.5); NEUTROPHILS % 71.8 % (39.0-77.0); PLATELET COUNT 318 10^3/UL (140-415); RED BLOOD COUNT 3.15 10^6/ul (4.20-5.40); RED CELL DISTRIBUTION WIDTH 15.2 % (11.5-14.5)
[2018-10-07 06:53] LABS: WHITE BLOOD COUNT 6.8 10^3/ul (4.8-10.8)
[2018-10-07 07:09] LABS: CREATINE KINASE 1534 IU/L (23-200)
[2018-10-07] MEDS: INSULIN ASPART [NOVOLOG] 3 ML PEN SC ×6 (08:00→17:26)
[2018-10-07] MEDS: CLOPIDOGREL 75 MG TAB PO (08:53)
[2018-10-07] MEDS: METOPROLOL 50 MG TAB PO (08:53)
[2018-10-07] MEDS: AMLODIPINE 10 MG TAB PO (08:53)
[2018-10-07] MEDS: SUCRALFATE (100 MG/ML) 10ML CUP PO ×3 (08:54→17:26)
[2018-10-07] MEDS: ASPIRIN 81 MG TAB PO (08:54)
[2018-10-07] MEDS: INSULIN DETEMIR [LEVEMIR] (100 UNITS/ML) SYG SC (08:59)
[2018-10-07] MEDS: DAPTOMYCIN IVPB (16:35)
[2018-10-07] MEDS: SOD CHLORIDE 0.9% IVPB (16:35)
== END 2018-10-07 20:30 | disposition home health service (06) | DRG 853 ==
LOC: 6WM 10-01 17:53 → ICU 10-03 07:20 → 5EC 10-06 00:12 → 6WM 10-01 22:03 → 2NE 10-05 18:10 → E/R 01:26 → PP2 02:59 → 6WM 13:30
PROC: 047S0ZZ Dilation of Left Posterior Tibial Artery, Open Approach (ICD-10-PCS; principal; 2018-09-23 12:21)
PROC: 0LBW0ZZ Excision of Left Foot Tendon, Open Approach (ICD-10-PCS; 2018-09-23 12:21)
PROC: 0HRNXK3 Replacement of Left Foot Skin with Nonautologous Tissue Substitute, Full Thickness, External Approach (ICD-10-PCS; 2018-09-23 12:21)
PROC: B410YZZ Fluoroscopy of Abdominal Aorta using Other Contrast (ICD-10-PCS; 2018-09-23 12:21)
PROC: B41GYZZ Fluoroscopy of Left Lower Extremity Arteries using Other Contrast (ICD-10-PCS; 2018-09-23 12:21)
PROC: 02HV33Z Insertion of Infusion Device into Superior Vena Cava, Percutaneous Approach (ICD-10-PCS; 2018-09-23 12:21)
PROC: B548ZZA Ultrasonography of Superior Vena Cava, Guidance (ICD-10-PCS; 2018-09-23 12:21)
DX: A41.9 Sepsis, unspecified organism (principal); J18.9 Pneumonia, unspecified organism; G92 Toxic encephalopathy; E11.52 Type 2 diabetes mellitus with diabetic peripheral angiopathy with gangrene; I96 Gangrene, not elsewhere classified; M86.172 Other acute osteomyelitis, left ankle and foot; L03.116 Cellulitis of left lower limb; D68.59 Other primary thrombophilia; D62 Acute posthemorrhagic anemia; I82.622 Acute embolism and thrombosis of deep veins of left upper extremity; N17.9 Acute kidney failure, unspecified; N18.3 Chronic kidney disease, stage 3 (moderate); E11.621 Type 2 diabetes mellitus with foot ulcer; I16.0 Hypertensive urgency; E11.65 Type 2 diabetes mellitus with hyperglycemia; D63.8 Anemia in other chronic diseases classified elsewhere; E11.69 Type 2 diabetes mellitus with other specified complication; D50.9 Iron deficiency anemia, unspecified; J45.20 Mild intermittent asthma, uncomplicated; E11.42 Type 2 diabetes mellitus with diabetic polyneuropathy; E83.89 Other disorders of mineral metabolism; I12.9 Hypertensive chronic kidney disease with stage 1 through stage 4 chronic kidney disease, or unspecified chronic kidney disease; E11.22 Type 2 diabetes mellitus with diabetic chronic kidney disease
CPT/HCPCS: 36246; 36415; 36430; 36569; 36600; 70450; 70544; 70549; 70551; 71045; 73630-LT; 73718; 74018; 74176; 75630; 76775; 76937; 80048; 80053; 80061; 80069; 81001; 81003; 82043; 82140; 82550; 82565; 82728; 82803; 82947; 82962; 83036; 83540; 83605; 83690; 83735; 83935; 84100; 84155; 84295; 84300; 84484; 85025; 85610; 85651; 85730; 86140; 86850; 86900; 86901; 86920; 87040; 87070; 87081; 87086; 88304; 90686; 93005; 93306; 93922; 93970; 93971; 95819; 97161; 99285-25

== ENCOUNTER 2018-10-08 15:08 | Inpatient (IN) | payer OTHER ==
[2018-10-08] MEDS ORDERED: ACETAMINOPHEN 325 MG TAB PO ×2 (15:30→17:00)
[2018-10-08] MEDS ORDERED: ONDANSETRON 4 MG INJ IV (15:30)
[2018-10-08] MEDS: morphine 4 MG/ML VIAL IV (16:03)
[2018-10-08] MEDS: ONDANSETRON 4 MG INJ IV (16:03)
[2018-10-08 16:32] LABS: ADD MAN DIFF? NO
[2018-10-08 16:38] LABS: WHITE BLOOD COUNT 7.1 10^3/ul (4.8-10.8)
[2018-10-08 16:38] LABS: BASOPHILS % 0.3 % (0.0-2.0); EOSINOPHILS % 0.3 % (0.0-7.0); HEMATOCRIT 29.6 % (37.0-47.0); HEMOGLOBIN 9.2 g/dl (12.0-16.0); LYMPHOCYTES % 14.7 % (15.0-51.0); MEAN CORPUSCULAR HGB CONC 31.1 g/dl (32.0-37.0); MEAN PLATELET VOLUME 9.7 fl (7.4-10.4); MONOCYTE # 0.4 10^3/ul (0.3-0.9); MONOCYTES % 5.4 % (0.0-11.0); NEUTROPHIL # 5.5 10^3/ul (1.6-7.5); NEUTROPHILS % 78.2 % (39.0-77.0); PLATELET COUNT 318 10^3/UL (140-415); RED BLOOD COUNT 3.29 10^6/ul (4.20-5.40); RED CELL DISTRIBUTION WIDTH 15.1 % (11.5-14.5)
[2018-10-08 16:56] LABS: ALANINE AMINOTRANSFERASE 110 IU/L (13-69); ALBUMIN 2.9 g/dl (3.3-4.9); ALBUMIN/GLOBULIN RATIO 0.93; ALKALINE PHOSPHATASE 356 IU/L (42-121); ANION GAP 6 (5-13); ASPARTATE AMINO TRANSFERASE 142 IU/L (15-46); BLOOD UREA NITROGEN 30 mg/dl (7-20); CALCIUM 8.3 mg/dl (8.4-10.2); CARBON DIOXIDE 30 mmol/L (21-31); CHLORIDE 104 mmol/L (97-110); CREATININE 1.11 mg/dl (0.44-1.00); Estimated GFR 51 mL/min (>60); GLUCOSE 292 mg/dl (70-220); LIPASE 100 U/L (23-300); POTASSIUM 4.1 mmol/L (3.5-5.1); SODIUM 140 mmol/L (135-144)
[2018-10-08] MEDS ORDERED: traMADol 50 MG TAB PO (17:00)
[2018-10-08] MEDS ORDERED: NACL 0.9% 3 ML SYG IV (17:00)
[2018-10-08] MEDS: FUROSEMIDE 40 MG INJ IV (17:13)
[2018-10-08] MEDS ORDERED: GLUCAGON 1 MG INJ IM (17:30)
[2018-10-08] MEDS ORDERED: DEXTROSE 50% 50 ML SYRINGE IV ×2 (17:30)
[2018-10-08] MEDS ORDERED: GLUCOSE GEL 15 GRAM TUBE PO ×2 (17:30)
[2018-10-08] MEDS ORDERED: GLUCOSE GEL 15 GRAM TUBE BUCCAL (17:30)
[2018-10-08 17:43] LABS: INR 0.99; PARTIAL THROMBOPLASTIN TIME 31.8 Sec (23.0-35.0); PROTIME 13.2 Sec (11.9-14.9)
[2018-10-08] MEDS: POLYETHYLENE GLYCOL 17 GM PACKET PO (18:35)
[2018-10-08] MEDS: DOCUSATE SODIUM 100 MG CAP PO (18:35)
[2018-10-08] MEDS: hydrALAzine 20 MG INJ IV (18:36)
[2018-10-08] MEDS: INSULIN ASPART [NOVOLOG] 3 ML PEN SC ×3 (19:00→20:31)
[2018-10-08 19:57] LABS: LACTIC ACID 1.1 mmol/L (0.5-2.0)
[2018-10-08] MEDS: LINEZOLID 600 MG/D5W (PMX) 300 ML IVPB (20:09)
[2018-10-08] MEDS: ATORVASTATIN 40 MG TAB PO (20:10)
[2018-10-08] MEDS: MONTELUKAST 10 MG TAB PO (20:10)
[2018-10-08] MEDS: SENNA/DOCUSATE NA (8.6MG/50MG) TAB PO (20:10)
[2018-10-08] MEDS: HYDROCODONE/APAP (5/325) TAB PO (20:11)
[2018-10-08] MEDS: METOPROLOL 25 MG TAB PO (20:11)
[2018-10-08] MEDS ORDERED: METOPROLOL 50 MG TAB PO ×2 (21:00)
[2018-10-09 08:11] LABS: ADD MAN DIFF? NO
[2018-10-09 08:19] LABS: WHITE BLOOD COUNT 6.5 10^3/ul (4.8-10.8)
[2018-10-09 08:19] LABS: BASOPHILS % 0.3 % (0.0-2.0); EOSINOPHILS # 0.1 10^3/ul (0.0-0.5); EOSINOPHILS % 1.4 % (0.0-7.0); HEMATOCRIT 26.5 % (37.0-47.0); HEMOGLOBIN 8.2 g/dl (12.0-16.0); LYMPHOCYTES # 1.7 10^3/ul (0.8-2.9); LYMPHOCYTES % 25.4 % (15.0-51.0); MEAN CORPUSCULAR HEMOGLOBIN 27.8 pg (29.0-33.0); MEAN CORPUSCULAR HGB CONC 30.9 g/dl (32.0-37.0); MEAN CORPUSCULAR VOLUME 89.8 fl (82.0-101.0); MEAN PLATELET VOLUME 9.8 fl (7.4-10.4); MONOCYTE # 0.4 10^3/ul (0.3-0.9); MONOCYTES % 6.3 % (0.0-11.0); NEUTROPHIL # 4.3 10^3/ul (1.6-7.5); NEUTROPHILS % 66.1 % (39.0-77.0); PLATELET COUNT 295 10^3/UL (140-415); RED BLOOD COUNT 2.95 10^6/ul (4.20-5.40); RED CELL DISTRIBUTION WIDTH 15.4 % (11.5-14.5)
[2018-10-09 08:45] LABS: ALANINE AMINOTRANSFERASE 96 IU/L (13-69); ALBUMIN 2.4 g/dl (3.3-4.9); ALBUMIN/GLOBULIN RATIO 0.75; ALKALINE PHOSPHATASE 260 IU/L (42-121); ANION GAP 5 (5-13); ASPARTATE AMINO TRANSFERASE 112 IU/L (15-46); BILIRUBIN,INDIRECT 0.2 mg/dl (0-1.1); BILIRUBIN,TOTAL 0.2 mg/dl (0.2-1.3); BLOOD UREA NITROGEN 30 mg/dl (7-20); CALCIUM 8.2 mg/dl (8.4-10.2); CARBON DIOXIDE 30 mmol/L (21-31); CHLORIDE 106 mmol/L (97-110); CREATININE 1.06 mg/dl (0.44-1.00); Estimated GFR 54 mL/min (>60); GLUCOSE 112 mg/dl (70-220); POTASSIUM 4.7 mmol/L (3.5-5.1); SODIUM 141 mmol/L (135-144); TOTAL PROTEIN 5.6 g/dl (6.1-8.1)
[2018-10-09 08:47] LABS: MAGNESIUM 1.8 mg/dl (1.7-2.5)
[2018-10-09] MEDS ORDERED: AMLODIPINE 10 MG TAB PO (09:00)
[2018-10-09] MEDS ORDERED: INSULIN GLARGINE [LANtus] 3 ML PEN SC (09:00)
[2018-10-09] MEDS: ASPIRIN 81 MG TAB PO (09:04)
[2018-10-09] MEDS: LINEZOLID 600 MG/D5W (PMX) 300 ML IVPB ×2 (09:04→20:39)
[2018-10-09] MEDS: SENNA/DOCUSATE NA (8.6MG/50MG) TAB PO ×2 (09:08→20:36)
[2018-10-09] MEDS: FUROSEMIDE 20 MG INJ IV ×2 (09:08→16:51)
[2018-10-09] MEDS: METOPROLOL 25 MG TAB PO ×2 (09:08→20:36)
[2018-10-09] MEDS: CLOPIDOGREL 75 MG TAB PO (09:09)
[2018-10-09] MEDS: POLYETHYLENE GLYCOL 17 GM PACKET PO (09:09)
[2018-10-09] MEDS: INSULIN ASPART [NOVOLOG] 3 ML PEN SC ×7 (09:37→20:57)
[2018-10-09] MEDS: INSULIN GLARGINE [LANTus] (100 UNITS/ML) SYG SC (11:13)
[2018-10-09] MEDS: MEROPENEM 1 GM/50ML(PMX) 50 ML IVPB ×2 (11:39→22:21)
[2018-10-09] MEDS: HYDROCODONE/APAP (5/325) TAB PO (15:42)
[2018-10-09] MEDS: ALBUTEROL 0.083% (NEB) 2.5 MG/3 ML AMP HHN (16:01)
[2018-10-09] MEDS: MONTELUKAST 10 MG TAB PO (20:36)
[2018-10-09] MEDS: ATORVASTATIN 40 MG TAB PO (20:36)
[2018-10-09] MEDS: METHYLPREDNISOLONE 40 MG INJ IV (20:37)
[2018-10-09] MEDS: DOCUSATE SODIUM 100 MG CAP PO (22:34)
[2018-10-09] MEDS: hydrALAzine 20 MG INJ IV (23:37)
[2018-10-10] MEDS: ONDANSETRON 4 MG INJ IV (05:30)
[2018-10-10] MEDS: morphine 2 MG INJ IV (06:10)
[2018-10-10 07:08] LABS: ADD MAN DIFF? NO
[2018-10-10 07:22] LABS: BASOPHILS % 0.3 % (0.0-2.0); HEMATOCRIT 27.9 % (37.0-47.0); HEMOGLOBIN 8.8 g/dl (12.0-16.0); LYMPHOCYTES # 0.8 10^3/ul (0.8-2.9); LYMPHOCYTES % 10.4 % (15.0-51.0); MEAN CORPUSCULAR HEMOGLOBIN 28.2 pg (29.0-33.0); MEAN CORPUSCULAR HGB CONC 31.5 g/dl (32.0-37.0); MEAN CORPUSCULAR VOLUME 89.4 fl (82.0-101.0); MEAN PLATELET VOLUME 10.2 fl (7.4-10.4); MONOCYTE # 0.1 10^3/ul (0.3-0.9); MONOCYTES % 1.1 % (0.0-11.0); NEUTROPHILS % 87.6 % (39.0-77.0); PLATELET COUNT 318 10^3/UL (140-415); RED BLOOD COUNT 3.12 10^6/ul (4.20-5.40)
[2018-10-10 07:37] LABS: ALANINE AMINOTRANSFERASE 104 IU/L (13-69); ALBUMIN 2.7 g/dl (3.3-4.9); ALBUMIN/GLOBULIN RATIO 0.93; ALKALINE PHOSPHATASE 331 IU/L (42-121); ANION GAP 4 (5-13); ASPARTATE AMINO TRANSFERASE 106 IU/L (15-46); BILIRUBIN,INDIRECT 0.1 mg/dl (0-1.1); BILIRUBIN,TOTAL 0.1 mg/dl (0.2-1.3); BLOOD UREA NITROGEN 35 mg/dl (7-20); CALCIUM 8.5 mg/dl (8.4-10.2); CARBON DIOXIDE 32 mmol/L (21-31); CHLORIDE 103 mmol/L (97-110); CREATININE 1.18 mg/dl (0.44-1.00); Estimated GFR 48 mL/min (>60); GLUCOSE 248 mg/dl (70-220); MAGNESIUM 1.7 mg/dl (1.7-2.5); POTASSIUM 4.6 mmol/L (3.5-5.1); SODIUM 139 mmol/L (135-144); TOTAL PROTEIN 5.6 g/dl (6.1-8.1)
[2018-10-10] MEDS: CLOPIDOGREL 75 MG TAB PO (08:19)
[2018-10-10] MEDS: POLYETHYLENE GLYCOL 17 GM PACKET PO (08:19)
[2018-10-10] MEDS: METOPROLOL 25 MG TAB PO ×2 (08:20→21:57)
[2018-10-10] MEDS: METHYLPREDNISOLONE 40 MG INJ IV (08:20)
[2018-10-10] MEDS: FUROSEMIDE 20 MG INJ IV (08:20)
[2018-10-10] MEDS: ASPIRIN 81 MG TAB PO (08:22)
[2018-10-10] MEDS: SENNA/DOCUSATE NA (8.6MG/50MG) TAB PO ×2 (08:22→21:56)
[2018-10-10] MEDS: LINEZOLID 600 MG/D5W (PMX) 300 ML IVPB ×2 (08:23→21:57)
[2018-10-10] MEDS: INSULIN ASPART [NOVOLOG] 3 ML PEN SC ×7 (08:32→22:06)
[2018-10-10] MEDS: INSULIN GLARGINE [LANTus] (100 UNITS/ML) SYG SC (08:32)
[2018-10-10] MEDS ORDERED: hydrOXYzine PAMOATE 25 MG CAP PO (09:00)
[2018-10-10] MEDS: MEROPENEM 1 GM/50ML(PMX) 50 ML IVPB ×2 (09:26→21:57)
[2018-10-10] MEDS: hydrALAzine 20 MG INJ IV ×2 (11:18→16:26)
[2018-10-10] MEDS: SUCRALFATE (100 MG/ML) 10ML CUP PO ×3 (15:07→21:57)
[2018-10-10] MEDS: HYDROCODONE/APAP (5/325) TAB PO (18:48)
[2018-10-10] MEDS: DOCUSATE SODIUM 100 MG CAP PO (18:48)
[2018-10-10] MEDS: ATORVASTATIN 40 MG TAB PO (21:55)
[2018-10-10] MEDS: MONTELUKAST 10 MG TAB PO (21:55)
[2018-10-11] MEDS: PANTOPRAZOLE (EC) 40 MG TAB PO (06:06)
[2018-10-11 06:27] LABS: ADD MAN DIFF? NO
[2018-10-11 06:28] LABS: BASOPHILS % 0.2 % (0.0-2.0); EOSINOPHILS % 0.3 % (0.0-7.0); HEMATOCRIT 27.3 % (37.0-47.0); HEMOGLOBIN 8.5 g/dl (12.0-16.0); LYMPHOCYTES # 1.8 10^3/ul (0.8-2.9); LYMPHOCYTES % 20.9 % (15.0-51.0); MEAN CORPUSCULAR HEMOGLOBIN 28.2 pg (29.0-33.0); MEAN CORPUSCULAR HGB CONC 31.1 g/dl (32.0-37.0); MEAN CORPUSCULAR VOLUME 90.7 fl (82.0-101.0); MEAN PLATELET VOLUME 10.1 fl (7.4-10.4); MONOCYTE # 0.6 10^3/ul (0.3-0.9); MONOCYTES % 7.1 % (0.0-11.0); NEUTROPHIL # 6.2 10^3/ul (1.6-7.5); PLATELET COUNT 304 10^3/UL (140-415); RED BLOOD COUNT 3.01 10^6/ul (4.20-5.40); RED CELL DISTRIBUTION WIDTH 15.3 % (11.5-14.5)
[2018-10-11 06:28] LABS: WHITE BLOOD COUNT 8.8 10^3/ul (4.8-10.8)
[2018-10-11 06:57] LABS: ANION GAP 5 (5-13); BLOOD UREA NITROGEN 43 mg/dl (7-20); CALCIUM 8.2 mg/dl (8.4-10.2); CARBON DIOXIDE 32 mmol/L (21-31); CHLORIDE 101 mmol/L (97-110); CREATININE 1.07 mg/dl (0.44-1.00); Estimated GFR 53 mL/min (>60); GLUCOSE 154 mg/dl (70-220); POTASSIUM 4.4 mmol/L (3.5-5.1); SODIUM 138 mmol/L (135-144)
[2018-10-11 07:21] LABS: HEPATITIS B SURFACE ANTIGEN NEGATIVE (NEGATIVE)
[2018-10-11] MEDS: INSULIN ASPART [NOVOLOG] 3 ML PEN SC ×7 (08:07→20:59)
[2018-10-11] MEDS: SUCRALFATE (100 MG/ML) 10ML CUP PO ×4 (08:09→20:46)
[2018-10-11] MEDS: SENNA/DOCUSATE NA (8.6MG/50MG) TAB PO ×2 (08:10→20:46)
[2018-10-11] MEDS: CLOPIDOGREL 75 MG TAB PO (08:10)
[2018-10-11] MEDS: FUROSEMIDE 40 MG INJ IV (08:10)
[2018-10-11] MEDS: LINEZOLID 600 MG/D5W (PMX) 300 ML IVPB ×2 (08:11→20:49)
[2018-10-11] MEDS: METOPROLOL 25 MG TAB PO ×2 (08:11→20:47)
[2018-10-11] MEDS: POLYETHYLENE GLYCOL 17 GM PACKET PO (08:11)
[2018-10-11] MEDS: ASPIRIN 81 MG TAB PO (08:11)
[2018-10-11] MEDS: INSULIN GLARGINE [LANTus] (100 UNITS/ML) SYG SC (08:30)
[2018-10-11 08:59] LABS: ALANINE AMINOTRANSFERASE 96 IU/L (13-69); ALBUMIN 2.6 g/dl (3.3-4.9); ALKALINE PHOSPHATASE 263 IU/L (42-121); ASPARTATE AMINO TRANSFERASE 62 IU/L (15-46); BILIRUBIN,INDIRECT 0.2 mg/dl (0-1.1); BILIRUBIN,TOTAL 0.2 mg/dl (0.2-1.3); TOTAL PROTEIN 5.7 g/dl (6.1-8.1)
[2018-10-11] MEDS: MEROPENEM 1 GM/50ML(PMX) 50 ML IVPB ×2 (09:59→20:46)
[2018-10-11] MEDS: AMLODIPINE 5 MG TAB PO (10:00)
[2018-10-11] MEDS: hydrALAzine 20 MG INJ IV (15:23)
[2018-10-11] MEDS: HYDROCODONE/APAP (5/325) TAB PO (15:24)
[2018-10-11] MEDS: ATORVASTATIN 40 MG TAB PO (20:46)
[2018-10-11] MEDS: MONTELUKAST 10 MG TAB PO (20:47)
[2018-10-12] MEDS: PANTOPRAZOLE (EC) 40 MG TAB PO (05:17)
[2018-10-12] MEDS: hydrALAzine 20 MG INJ IV ×2 (05:17→16:43)
[2018-10-12 06:06] LABS: ADD MAN DIFF? NO
[2018-10-12 06:13] LABS: BASOPHILS % 0.3 % (0.0-2.0); EOSINOPHILS # 0.1 10^3/ul (0.0-0.5); EOSINOPHILS % 0.7 % (0.0-7.0); HEMATOCRIT 27.8 % (37.0-47.0); HEMOGLOBIN 8.9 g/dl (12.0-16.0); LYMPHOCYTES # 1.3 10^3/ul (0.8-2.9); MEAN CORPUSCULAR HEMOGLOBIN 28.7 pg (29.0-33.0); MEAN CORPUSCULAR VOLUME 89.7 fl (82.0-101.0); MONOCYTE # 0.5 10^3/ul (0.3-0.9); MONOCYTES % 6.4 % (0.0-11.0); NEUTROPHIL # 5.2 10^3/ul (1.6-7.5); NEUTROPHILS % 73.3 % (39.0-77.0); PLATELET COUNT 310 10^3/UL (140-415); RED CELL DISTRIBUTION WIDTH 15.1 % (11.5-14.5)
[2018-10-12 06:13] LABS: WHITE BLOOD COUNT 7.1 10^3/ul (4.8-10.8)
[2018-10-12 07:30] LABS: ALANINE AMINOTRANSFERASE 78 IU/L (13-69); ALBUMIN 2.6 g/dl (3.3-4.9); ALBUMIN/GLOBULIN RATIO 0.89; ALKALINE PHOSPHATASE 240 IU/L (42-121); ANION GAP 5 (5-13); ASPARTATE AMINO TRANSFERASE 45 IU/L (15-46); BILIRUBIN,INDIRECT 0.1 mg/dl (0-1.1); BILIRUBIN,TOTAL 0.1 mg/dl (0.2-1.3); BLOOD UREA NITROGEN 43 mg/dl (7-20); CALCIUM 8.2 mg/dl (8.4-10.2); CARBON DIOXIDE 32 mmol/L (21-31); CHLORIDE 102 mmol/L (97-110); CREATININE 0.92 mg/dl (0.44-1.00); Estimated GFR > 60 mL/min (>60); GLUCOSE 131 mg/dl (70-220); POTASSIUM 4.3 mmol/L (3.5-5.1); SODIUM 139 mmol/L (135-144); TOTAL PROTEIN 5.5 g/dl (6.1-8.1)
[2018-10-12] MEDS: LINEZOLID 600 MG/D5W (PMX) 300 ML IVPB (08:17)
[2018-10-12] MEDS: CLOPIDOGREL 75 MG TAB PO (08:20)
[2018-10-12] MEDS: ASPIRIN 81 MG TAB PO (08:20)
[2018-10-12] MEDS: AMLODIPINE 5 MG TAB PO (08:20)
[2018-10-12] MEDS: SUCRALFATE (100 MG/ML) 10ML CUP PO ×4 (08:20→22:46)
[2018-10-12] MEDS: POLYETHYLENE GLYCOL 17 GM PACKET PO (08:21)
[2018-10-12] MEDS: METOPROLOL 25 MG TAB PO ×2 (08:21→22:44)
[2018-10-12] MEDS: FUROSEMIDE 40 MG INJ IV (08:21)
[2018-10-12] MEDS: SENNA/DOCUSATE NA (8.6MG/50MG) TAB PO ×2 (08:22→22:44)
[2018-10-12] MEDS: INSULIN ASPART [NOVOLOG] 3 ML PEN SC ×7 (08:52→21:29)
[2018-10-12] MEDS: INSULIN GLARGINE [LANTus] (100 UNITS/ML) SYG SC (08:52)
[2018-10-12] MEDS: MEROPENEM 1 GM/50ML(PMX) 50 ML IVPB ×2 (09:58→22:56)
[2018-10-12] MEDS: BISACODYL 10 MG SUPP PR (13:19)
[2018-10-12] MEDS ORDERED: NA PHOSPHATE/BIPHOS 133 ML ENEMA PR (13:30)
[2018-10-12] MEDS: ALBUTEROL/IPRATROPIUM (NEB) 3 ML AMP HHN ×2 (15:16→20:39)
[2018-10-12] MEDS: LABETALOL HCL 20MG INJ IV (18:17)
[2018-10-12 19:11] LABS: ANA SCREEN NEGATIVE (NEGATIVE)
[2018-10-12] MEDS: ATORVASTATIN 40 MG TAB PO (22:44)
[2018-10-12] MEDS: MONTELUKAST 10 MG TAB PO (22:45)
[2018-10-12] MEDS: ZYVOX 600 MG TAB PO (22:45)
[2018-10-13] MEDS: hydrALAzine 20 MG INJ IV ×4 (00:53→18:58)
[2018-10-13] MEDS: PANTOPRAZOLE (EC) 40 MG TAB PO (05:15)
[2018-10-13 07:04] LABS: ADD MAN DIFF? NO
[2018-10-13 07:10] LABS: BASOPHILS % 0.2 % (0.0-2.0); EOSINOPHILS # 0.1 10^3/ul (0.0-0.5); EOSINOPHILS % 1.4 % (0.0-7.0); HEMATOCRIT 26.9 % (37.0-47.0); HEMOGLOBIN 8.6 g/dl (12.0-16.0); LYMPHOCYTES # 1.4 10^3/ul (0.8-2.9); LYMPHOCYTES % 21.8 % (15.0-51.0); MEAN CORPUSCULAR HEMOGLOBIN 28.8 pg (29.0-33.0); MEAN PLATELET VOLUME 9.9 fl (7.4-10.4); MONOCYTE # 0.5 10^3/ul (0.3-0.9); MONOCYTES % 7.3 % (0.0-11.0); NEUTROPHIL # 4.4 10^3/ul (1.6-7.5); NEUTROPHILS % 68.8 % (39.0-77.0); PLATELET COUNT 266 10^3/UL (140-415); RED BLOOD COUNT 2.99 10^6/ul (4.20-5.40); RED CELL DISTRIBUTION WIDTH 15.2 % (11.5-14.5)
[2018-10-13 07:10] LABS: WHITE BLOOD COUNT 6.3 10^3/ul (4.8-10.8)
[2018-10-13] MEDS: LABETALOL HCL 20MG INJ IV ×2 (07:37→11:53)
[2018-10-13] MEDS: INSULIN ASPART [NOVOLOG] 3 ML PEN SC ×7 (07:42→20:52)
[2018-10-13 07:45] LABS: ANION GAP 4 (5-13); BLOOD UREA NITROGEN 38 mg/dl (7-20); CALCIUM 7.8 mg/dl (8.4-10.2); CARBON DIOXIDE 34 mmol/L (21-31); CHLORIDE 102 mmol/L (97-110); CREATININE 0.98 mg/dl (0.44-1.00); Estimated GFR 59 mL/min (>60); GLUCOSE 163 mg/dl (70-220); MAGNESIUM 1.7 mg/dl (1.7-2.5); PHOSPHORUS 4.2 mg/dl (2.5-4.9); POTASSIUM 4.5 mmol/L (3.5-5.1); SODIUM 140 mmol/L (135-144)
[2018-10-13 07:48] LABS: ALANINE AMINOTRANSFERASE 70 IU/L (13-69); ALBUMIN 2.5 g/dl (3.3-4.9); ALKALINE PHOSPHATASE 225 IU/L (42-121); ASPARTATE AMINO TRANSFERASE 32 IU/L (15-46); BILIRUBIN,INDIRECT 0.2 mg/dl (0-1.1); BILIRUBIN,TOTAL 0.2 mg/dl (0.2-1.3); TOTAL PROTEIN 5.3 g/dl (6.1-8.1)
[2018-10-13] MEDS: ALBUTEROL/IPRATROPIUM (NEB) 3 ML AMP HHN ×3 (08:10→20:11)
[2018-10-13] MEDS: MEROPENEM 1 GM/50ML(PMX) 50 ML IVPB ×2 (09:07→21:57)
[2018-10-13] MEDS: FUROSEMIDE 20 MG INJ IV (09:08)
[2018-10-13] MEDS: SUCRALFATE (100 MG/ML) 10ML CUP PO ×4 (09:08→21:57)
[2018-10-13] MEDS: ASPIRIN 81 MG TAB PO (09:08)
[2018-10-13] MEDS: CLOPIDOGREL 75 MG TAB PO (09:08)
[2018-10-13] MEDS: ZYVOX 600 MG TAB PO ×2 (09:08→21:57)
[2018-10-13] MEDS: LISINOPRIL 10 MG TAB PO (09:09)
[2018-10-13] MEDS: POLYETHYLENE GLYCOL 17 GM PACKET PO (09:09)
[2018-10-13] MEDS: SENNA/DOCUSATE NA (8.6MG/50MG) TAB PO ×2 (09:10→21:57)
[2018-10-13] MEDS: METOPROLOL 25 MG TAB PO ×2 (09:10→21:59)
[2018-10-13] MEDS: INSULIN GLARGINE [LANTus] (100 UNITS/ML) SYG SC (09:28)
[2018-10-13] MEDS: AMLODIPINE 5 MG TAB PO (13:00)
[2018-10-13 13:17] LABS: ANA SCREEN NEGATIVE (NEGATIVE); MITOCHONDRIAL TB NEGATIVE (NEGATIVE); SMOOTH MUSCLE AB SCREEN POSITIVE (NEGATIVE); SMOOTH MUSCLE AB TITER 1:40 titer (<1:20)
[2018-10-13] MEDS: SODIUM HYPOCHLORITE (1/40) 1 APPLIC BTL IRR (21:57)
[2018-10-13] MEDS: MONTELUKAST 10 MG TAB PO (21:58)
[2018-10-13] MEDS: ATORVASTATIN 40 MG TAB PO (21:58)
[2018-10-14] MEDS: LABETALOL HCL 20MG INJ IV (00:24)
[2018-10-14] MEDS: hydrALAzine 20 MG INJ IV ×2 (04:41→16:55)
[2018-10-14] MEDS: PANTOPRAZOLE (EC) 40 MG TAB PO (05:26)
[2018-10-14 06:34] LABS: ADD MAN DIFF? NO
[2018-10-14 06:38] LABS: BASOPHILS % 0.1 % (0.0-2.0); EOSINOPHILS # 0.1 10^3/ul (0.0-0.5); EOSINOPHILS % 1.6 % (0.0-7.0); HEMOGLOBIN 8.3 g/dl (12.0-16.0); LYMPHOCYTES # 1.4 10^3/ul (0.8-2.9); LYMPHOCYTES % 20.3 % (15.0-51.0); MEAN CORPUSCULAR HEMOGLOBIN 28.8 pg (29.0-33.0); MEAN CORPUSCULAR HGB CONC 31.9 g/dl (32.0-37.0); MEAN CORPUSCULAR VOLUME 90.3 fl (82.0-101.0); MEAN PLATELET VOLUME 10.4 fl (7.4-10.4); MONOCYTE # 0.4 10^3/ul (0.3-0.9); MONOCYTES % 5.6 % (0.0-11.0); NEUTROPHIL # 5.1 10^3/ul (1.6-7.5); NEUTROPHILS % 72.1 % (39.0-77.0); PLATELET COUNT 229 10^3/UL (140-415); RED BLOOD COUNT 2.88 10^6/ul (4.20-5.40); RED CELL DISTRIBUTION WIDTH 15.1 % (11.5-14.5)
[2018-10-14 06:38] LABS: WHITE BLOOD COUNT 7.1 10^3/ul (4.8-10.8)
[2018-10-14 07:02] LABS: ANION GAP 5 (5-13); BLOOD UREA NITROGEN 35 mg/dl (7-20); CALCIUM 8.3 mg/dl (8.4-10.2); CARBON DIOXIDE 33 mmol/L (21-31); CHLORIDE 102 mmol/L (97-110); CREATININE 0.91 mg/dl (0.44-1.00); Estimated GFR > 60 mL/min (>60); GLUCOSE 172 mg/dl (70-220); MAGNESIUM 1.8 mg/dl (1.7-2.5); PHOSPHORUS 3.8 mg/dl (2.5-4.9); POTASSIUM 4.3 mmol/L (3.5-5.1); SODIUM 140 mmol/L (135-144)
[2018-10-14] MEDS: INSULIN ASPART [NOVOLOG] 3 ML PEN SC ×7 (07:50→20:11)
[2018-10-14] MEDS: ALBUTEROL/IPRATROPIUM (NEB) 3 ML AMP HHN ×3 (07:55→20:28)
[2018-10-14] MEDS: SUCRALFATE (100 MG/ML) 10ML CUP PO ×5 (09:08→20:16)
[2018-10-14] MEDS: SODIUM HYPOCHLORITE (1/40) 1 APPLIC BTL IRR ×2 (09:08→20:11)
[2018-10-14] MEDS: MEROPENEM 1 GM/50ML(PMX) 50 ML IVPB (09:08)
[2018-10-14] MEDS: SENNA/DOCUSATE NA (8.6MG/50MG) TAB PO ×2 (09:09→20:08)
[2018-10-14] MEDS: AMLODIPINE 10 MG TAB PO (09:09)
[2018-10-14] MEDS: ASPIRIN 81 MG TAB PO (09:09)
[2018-10-14] MEDS: POLYETHYLENE GLYCOL 17 GM PACKET PO (09:09)
[2018-10-14] MEDS: ZYVOX 600 MG TAB PO (09:09)
[2018-10-14] MEDS: LISINOPRIL 10 MG TAB PO ×2 (09:10→20:07)
[2018-10-14] MEDS: CLOPIDOGREL 75 MG TAB PO (09:10)
[2018-10-14] MEDS: FUROSEMIDE 20 MG INJ IV (09:16)
[2018-10-14] MEDS: METOPROLOL 25 MG TAB PO ×2 (09:16→20:08)
[2018-10-14] MEDS: INSULIN GLARGINE [LANTus] (100 UNITS/ML) SYG SC (09:48)
[2018-10-14] MEDS: MONTELUKAST 10 MG TAB PO (20:08)
[2018-10-14] MEDS: ATORVASTATIN 40 MG TAB PO (20:09)
[2018-10-14] MEDS: CLINDAMYCIN 600 MG/D5W (PMX) 50 ML IVPB (22:22)
[2018-10-15 05:29] LABS: ADD MAN DIFF? NO
[2018-10-15 05:32] LABS: WHITE BLOOD COUNT 5.9 10^3/ul (4.8-10.8)
[2018-10-15 05:32] LABS: BASOPHILS % 0.3 % (0.0-2.0); EOSINOPHILS # 0.1 10^3/ul (0.0-0.5); EOSINOPHILS % 1.7 % (0.0-7.0); HEMATOCRIT 26.1 % (37.0-47.0); HEMOGLOBIN 8.2 g/dl (12.0-16.0); LYMPHOCYTES # 1.5 10^3/ul (0.8-2.9); LYMPHOCYTES % 25.7 % (15.0-51.0); MEAN CORPUSCULAR HEMOGLOBIN 28.5 pg (29.0-33.0); MEAN CORPUSCULAR HGB CONC 31.4 g/dl (32.0-37.0); MEAN CORPUSCULAR VOLUME 90.6 fl (82.0-101.0); MEAN PLATELET VOLUME 9.9 fl (7.4-10.4); MONOCYTE # 0.3 10^3/ul (0.3-0.9); MONOCYTES % 5.1 % (0.0-11.0); PLATELET COUNT 197 10^3/UL (140-415); RED BLOOD COUNT 2.88 10^6/ul (4.20-5.40); RED CELL DISTRIBUTION WIDTH 14.8 % (11.5-14.5)
[2018-10-15 05:54] LABS: ANION GAP 5 (5-13); BLOOD UREA NITROGEN 34 mg/dl (7-20); CALCIUM 8.4 mg/dl (8.4-10.2); CARBON DIOXIDE 34 mmol/L (21-31); CHLORIDE 101 mmol/L (97-110); CREATININE 0.92 mg/dl (0.44-1.00); Estimated GFR > 60 mL/min (>60); GLUCOSE 113 mg/dl (70-220); MAGNESIUM 1.9 mg/dl (1.7-2.5); PHOSPHORUS 3.9 mg/dl (2.5-4.9); POTASSIUM 4.1 mmol/L (3.5-5.1); SODIUM 140 mmol/L (135-144)
[2018-10-15] MEDS: PANTOPRAZOLE (EC) 40 MG TAB PO (05:56)
[2018-10-15] MEDS: CLINDAMYCIN 600 MG/D5W (PMX) 50 ML IVPB ×3 (05:56→22:49)
[2018-10-15] MEDS: SUCRALFATE (100 MG/ML) 10ML CUP PO ×4 (08:02→20:49)
[2018-10-15] MEDS: METOPROLOL 25 MG TAB PO ×2 (08:03→20:50)
[2018-10-15] MEDS: LISINOPRIL 10 MG TAB PO ×2 (08:03→20:51)
[2018-10-15] MEDS: POLYETHYLENE GLYCOL 17 GM PACKET PO (08:03)
[2018-10-15] MEDS: ASPIRIN 81 MG TAB PO (08:03)
[2018-10-15] MEDS: CLOPIDOGREL 75 MG TAB PO (08:04)
[2018-10-15] MEDS: FUROSEMIDE 20 MG INJ IV (08:04)
[2018-10-15] MEDS: SODIUM HYPOCHLORITE (1/40) 1 APPLIC BTL IRR ×3 (09:00→22:50)
[2018-10-15] MEDS: SENNA/DOCUSATE NA (8.6MG/50MG) TAB PO ×2 (09:00→22:48)
[2018-10-15] MEDS: AMLODIPINE 10 MG TAB PO (09:23)
[2018-10-15] MEDS: INSULIN GLARGINE [LANTus] (100 UNITS/ML) SYG SC (09:25)
[2018-10-15] MEDS: ALBUTEROL/IPRATROPIUM (NEB) 3 ML AMP HHN ×3 (09:28→19:41)
[2018-10-15] MEDS: INSULIN ASPART [NOVOLOG] 3 ML PEN SC ×7 (09:42→21:00)
[2018-10-15] MEDS: ATORVASTATIN 40 MG TAB PO (20:49)
[2018-10-15] MEDS: MONTELUKAST 10 MG TAB PO (22:48)
[2018-10-16] MEDS: hydrALAzine 20 MG INJ IV (02:39)
[2018-10-16] MEDS: ONDANSETRON 4 MG INJ IV (03:19)
[2018-10-16] MEDS: PANTOPRAZOLE (EC) 40 MG TAB PO (05:49)
[2018-10-16] MEDS: CLINDAMYCIN 600 MG/D5W (PMX) 50 ML IVPB ×3 (05:49→22:29)
[2018-10-16 06:30] LABS: ALANINE AMINOTRANSFERASE 48 IU/L (13-69); ALBUMIN 2.7 g/dl (3.3-4.9); ALKALINE PHOSPHATASE 235 IU/L (42-121); ASPARTATE AMINO TRANSFERASE 30 IU/L (15-46); BILIRUBIN,INDIRECT 0.3 mg/dl (0-1.1); BILIRUBIN,TOTAL 0.3 mg/dl (0.2-1.3); TOTAL PROTEIN 5.5 g/dl (6.1-8.1)
[2018-10-16] MEDS: SUCRALFATE (100 MG/ML) 10ML CUP PO ×4 (08:17→20:27)
[2018-10-16] MEDS: POLYETHYLENE GLYCOL 17 GM PACKET PO (08:17)
[2018-10-16] MEDS: METOPROLOL 25 MG TAB PO ×2 (08:18→20:28)
[2018-10-16] MEDS: LISINOPRIL 10 MG TAB PO ×2 (08:18→20:28)
[2018-10-16] MEDS: AMLODIPINE 10 MG TAB PO (08:19)
[2018-10-16] MEDS: CLOPIDOGREL 75 MG TAB PO (08:19)
[2018-10-16] MEDS: SENNA/DOCUSATE NA (8.6MG/50MG) TAB PO ×2 (08:19→20:28)
[2018-10-16] MEDS: ASPIRIN 81 MG TAB PO (08:19)
[2018-10-16] MEDS: INSULIN ASPART [NOVOLOG] 3 ML PEN SC ×7 (08:26→20:35)
[2018-10-16] MEDS: INSULIN GLARGINE [LANTus] (100 UNITS/ML) SYG SC (08:27)
[2018-10-16] MEDS: HYDROCODONE/APAP (5/325) TAB PO (08:32)
[2018-10-16] MEDS: SODIUM HYPOCHLORITE (1/40) 1 APPLIC BTL IRR ×2 (08:35→20:35)
[2018-10-16] MEDS: ALBUTEROL/IPRATROPIUM (NEB) 3 ML AMP HHN ×3 (08:46→20:36)
[2018-10-16] MEDS ORDERED: BUMETANIDE 1 MG INJ IV (09:00)
[2018-10-16] MEDS: BUMETANIDE 1 MG TAB PO (09:25)
[2018-10-16] MEDS: ATORVASTATIN 40 MG TAB PO (20:28)
[2018-10-16] MEDS: MONTELUKAST 10 MG TAB PO (20:28)
[2018-10-17] MEDS: PANTOPRAZOLE (EC) 40 MG TAB PO (05:07)
[2018-10-17] MEDS: BUMETANIDE 1 MG TAB PO (05:07)
[2018-10-17] MEDS: CLINDAMYCIN 600 MG/D5W (PMX) 50 ML IVPB ×3 (05:07→21:30)
[2018-10-17] MEDS: HYDROCODONE/APAP (5/325) TAB PO (05:41)
[2018-10-17 06:08] LABS: ADD MAN DIFF? NO
[2018-10-17 06:11] LABS: WHITE BLOOD COUNT 6.4 10^3/ul (4.8-10.8)
[2018-10-17 06:11] LABS: BASOPHILS % 0.3 % (0.0-2.0); EOSINOPHILS # 0.1 10^3/ul (0.0-0.5); EOSINOPHILS % 0.8 % (0.0-7.0); HEMATOCRIT 25.3 % (37.0-47.0); HEMOGLOBIN 8.1 g/dl (12.0-16.0); LYMPHOCYTES # 1.3 10^3/ul (0.8-2.9); LYMPHOCYTES % 20.5 % (15.0-51.0); MEAN CORPUSCULAR HEMOGLOBIN 28.8 pg (29.0-33.0); MEAN PLATELET VOLUME 10.6 fl (7.4-10.4); MONOCYTE # 0.4 10^3/ul (0.3-0.9); MONOCYTES % 5.6 % (0.0-11.0); NEUTROPHIL # 4.7 10^3/ul (1.6-7.5); NEUTROPHILS % 72.5 % (39.0-77.0); PLATELET COUNT 178 10^3/UL (140-415); RED BLOOD COUNT 2.81 10^6/ul (4.20-5.40); RED CELL DISTRIBUTION WIDTH 14.5 % (11.5-14.5)
[2018-10-17 07:14] LABS: ANION GAP 3 (5-13); BLOOD UREA NITROGEN 25 mg/dl (7-20); CALCIUM 8.6 mg/dl (8.4-10.2); CARBON DIOXIDE 35 mmol/L (21-31); CHLORIDE 102 mmol/L (97-110); CREATININE 0.79 mg/dl (0.44-1.00); Estimated GFR > 60 mL/min (>60); GLUCOSE 94 mg/dl (70-220); MAGNESIUM 1.8 mg/dl (1.7-2.5); PHOSPHORUS 4.7 mg/dl (2.5-4.9); POTASSIUM 4.6 mmol/L (3.5-5.1); SODIUM 140 mmol/L (135-144)
[2018-10-17] MEDS: INSULIN ASPART [NOVOLOG] 3 ML PEN SC ×7 (08:00→21:00)
[2018-10-17] MEDS: ALBUTEROL/IPRATROPIUM (NEB) 3 ML AMP HHN ×3 (09:03→21:02)
[2018-10-17] MEDS: CLOPIDOGREL 75 MG TAB PO (09:49)
[2018-10-17] MEDS: SUCRALFATE (100 MG/ML) 10ML CUP PO ×4 (09:49→21:24)
[2018-10-17] MEDS: SENNA/DOCUSATE NA (8.6MG/50MG) TAB PO ×2 (09:49→21:25)
[2018-10-17] MEDS: ASPIRIN 81 MG TAB PO (09:49)
[2018-10-17] MEDS: LISINOPRIL 10 MG TAB PO ×2 (09:50→21:25)
[2018-10-17] MEDS: METOPROLOL 25 MG TAB PO ×2 (09:51→21:25)
[2018-10-17] MEDS: POLYETHYLENE GLYCOL 17 GM PACKET PO (09:51)
[2018-10-17] MEDS: SODIUM HYPOCHLORITE (1/40) 1 APPLIC BTL IRR ×2 (09:52→21:38)
[2018-10-17] MEDS: INSULIN GLARGINE [LANTus] (100 UNITS/ML) SYG SC (09:59)
[2018-10-17] MEDS: NIFEdipine (XL) 60 MG TAB PO (13:39)
[2018-10-17] MEDS: MONTELUKAST 10 MG TAB PO (21:25)
[2018-10-17] MEDS: ATORVASTATIN 40 MG TAB PO (21:25)
[2018-10-18] MEDS: CLINDAMYCIN 600 MG/D5W (PMX) 50 ML IVPB ×3 (05:25→21:33)
[2018-10-18] MEDS: PANTOPRAZOLE (EC) 40 MG TAB PO (05:25)
[2018-10-18] MEDS: BUMETANIDE 1 MG TAB PO (05:25)
[2018-10-18] MEDS: SUCRALFATE (100 MG/ML) 10ML CUP PO ×5 (09:00→21:31)
[2018-10-18] MEDS: ALBUTEROL/IPRATROPIUM (NEB) 3 ML AMP HHN ×3 (09:00→20:29)
[2018-10-18] MEDS: INSULIN ASPART [NOVOLOG] 3 ML PEN SC ×7 (09:09→21:00)
[2018-10-18] MEDS: INSULIN GLARGINE [LANTus] (100 UNITS/ML) SYG SC (09:10)
[2018-10-18] MEDS: POLYETHYLENE GLYCOL 17 GM PACKET PO (09:11)
[2018-10-18] MEDS: ASPIRIN 81 MG TAB PO (09:11)
[2018-10-18] MEDS: SENNA/DOCUSATE NA (8.6MG/50MG) TAB PO ×2 (09:11→21:31)
[2018-10-18] MEDS: LISINOPRIL 10 MG TAB PO ×2 (09:11→21:32)
[2018-10-18] MEDS: CLOPIDOGREL 75 MG TAB PO (09:11)
[2018-10-18] MEDS: NIFEdipine (XL) 60 MG TAB PO (09:12)
[2018-10-18] MEDS: METOPROLOL 25 MG TAB PO ×2 (09:13→21:32)
[2018-10-18] MEDS: SODIUM HYPOCHLORITE (1/40) 1 APPLIC BTL IRR ×2 (09:14→21:35)
[2018-10-18 11:18] LABS: ADD MAN DIFF? NO
[2018-10-18 11:29] LABS: WHITE BLOOD COUNT 5.9 10^3/ul (4.8-10.8)
[2018-10-18 11:29] LABS: BASOPHILS % 0.2 % (0.0-2.0); EOSINOPHILS # 0.1 10^3/ul (0.0-0.5); EOSINOPHILS % 1.7 % (0.0-7.0); HEMATOCRIT 26.8 % (37.0-47.0); HEMOGLOBIN 8.4 g/dl (12.0-16.0); LYMPHOCYTES # 1.3 10^3/ul (0.8-2.9); MEAN CORPUSCULAR HEMOGLOBIN 28.5 pg (29.0-33.0); MEAN CORPUSCULAR HGB CONC 31.3 g/dl (32.0-37.0); MEAN CORPUSCULAR VOLUME 90.8 fl (82.0-101.0); MEAN PLATELET VOLUME 10.9 fl (7.4-10.4); MONOCYTE # 0.5 10^3/ul (0.3-0.9); MONOCYTES % 9.2 % (0.0-11.0); NEUTROPHIL # 3.9 10^3/ul (1.6-7.5); NEUTROPHILS % 66.6 % (39.0-77.0); PLATELET COUNT 143 10^3/UL (140-415); RED BLOOD COUNT 2.95 10^6/ul (4.20-5.40); RED CELL DISTRIBUTION WIDTH 14.6 % (11.5-14.5)
[2018-10-18 11:39] LABS: ANION GAP 5 (5-13); BLOOD UREA NITROGEN 36 mg/dl (7-20); CALCIUM 8.4 mg/dl (8.4-10.2); CARBON DIOXIDE 33 mmol/L (21-31); CHLORIDE 102 mmol/L (97-110); Estimated GFR 58 mL/min (>60); GLUCOSE 161 mg/dl (70-220); MAGNESIUM 1.8 mg/dl (1.7-2.5); PHOSPHORUS 4.8 mg/dl (2.5-4.9); POTASSIUM 4.3 mmol/L (3.5-5.1); SODIUM 140 mmol/L (135-144)
[2018-10-18] MEDS: HYDROCODONE/APAP (5/325) TAB PO (13:17)
[2018-10-18] MEDS: ATORVASTATIN 40 MG TAB PO (21:31)
[2018-10-18] MEDS: MONTELUKAST 10 MG TAB PO (21:31)
[2018-10-19] MEDS: CLINDAMYCIN 600 MG/D5W (PMX) 50 ML IVPB ×3 (05:42→21:30)
[2018-10-19] MEDS: PANTOPRAZOLE (EC) 40 MG TAB PO (05:42)
[2018-10-19] MEDS: BUMETANIDE 1 MG TAB PO (06:08)
[2018-10-19 07:03] LABS: ADD MAN DIFF? NO
[2018-10-19 07:13] LABS: BASOPHILS % 0.3 % (0.0-2.0); EOSINOPHILS # 0.1 10^3/ul (0.0-0.5); HEMATOCRIT 25.2 % (37.0-47.0); HEMOGLOBIN 7.7 g/dl (12.0-16.0); LYMPHOCYTES # 1.4 10^3/ul (0.8-2.9); LYMPHOCYTES % 17.2 % (15.0-51.0); MEAN CORPUSCULAR HGB CONC 30.6 g/dl (32.0-37.0); MEAN CORPUSCULAR VOLUME 91.6 fl (82.0-101.0); MEAN PLATELET VOLUME 10.9 fl (7.4-10.4); MONOCYTE # 0.6 10^3/ul (0.3-0.9); MONOCYTES % 7.8 % (0.0-11.0); NEUTROPHIL # 5.8 10^3/ul (1.6-7.5); NEUTROPHILS % 73.3 % (39.0-77.0); PLATELET COUNT 148 10^3/UL (140-415); RED BLOOD COUNT 2.75 10^6/ul (4.20-5.40); RED CELL DISTRIBUTION WIDTH 14.6 % (11.5-14.5)
[2018-10-19] MEDS: INSULIN ASPART [NOVOLOG] 3 ML PEN SC ×7 (08:00→20:47)
[2018-10-19] MEDS: POLYETHYLENE GLYCOL 17 GM PACKET PO (09:00)
[2018-10-19] MEDS: SENNA/DOCUSATE NA (8.6MG/50MG) TAB PO ×2 (09:00→20:47)
[2018-10-19] MEDS: LISINOPRIL 10 MG TAB PO ×2 (09:23→20:46)
[2018-10-19] MEDS: CLOPIDOGREL 75 MG TAB PO (09:23)
[2018-10-19] MEDS: ASPIRIN 81 MG TAB PO (09:24)
[2018-10-19] MEDS: NIFEdipine (XL) 60 MG TAB PO ×2 (09:25→20:46)
[2018-10-19] MEDS: METOPROLOL 25 MG TAB PO ×2 (09:26→20:47)
[2018-10-19] MEDS: SUCRALFATE (100 MG/ML) 10ML CUP PO ×5 (09:26→20:53)
[2018-10-19] MEDS: INSULIN GLARGINE [LANTus] (100 UNITS/ML) SYG SC (09:30)
[2018-10-19] MEDS: ALBUTEROL/IPRATROPIUM (NEB) 3 ML AMP HHN ×2 (13:45→19:23)
[2018-10-19] MEDS: SODIUM HYPOCHLORITE (1/40) 1 APPLIC BTL IRR ×2 (17:17→20:48)
[2018-10-19] MEDS: ATORVASTATIN 40 MG TAB PO (20:45)
[2018-10-19] MEDS: HYDROCODONE/APAP (5/325) TAB PO (20:50)
[2018-10-19] MEDS: MONTELUKAST 10 MG TAB PO (21:30)
[2018-10-19] MEDS: morphine 2 MG INJ IV (22:15)
[2018-10-20] MEDS: morphine 2 MG INJ IV (05:52)
[2018-10-20 05:55] LABS: WHITE BLOOD COUNT 5.4 10^3/ul (4.8-10.8)
[2018-10-20 05:55] LABS: ADD MAN DIFF? NO; BASOPHILS % 0.2 % (0.0-2.0); EOSINOPHILS # 0.1 10^3/ul (0.0-0.5); EOSINOPHILS % 1.9 % (0.0-7.0); HEMATOCRIT 22.5 % (37.0-47.0); HEMOGLOBIN 7.1 g/dl (12.0-16.0); LYMPHOCYTES # 1.4 10^3/ul (0.8-2.9); LYMPHOCYTES % 25.8 % (15.0-51.0); MEAN CORPUSCULAR HGB CONC 31.6 g/dl (32.0-37.0); MEAN CORPUSCULAR VOLUME 91.8 fl (82.0-101.0); MEAN PLATELET VOLUME 10.9 fl (7.4-10.4); MONOCYTE # 0.5 10^3/ul (0.3-0.9); MONOCYTES % 9.7 % (0.0-11.0); NEUTROPHIL # 3.3 10^3/ul (1.6-7.5); PLATELET COUNT 138 10^3/UL (140-415); RED BLOOD COUNT 2.45 10^6/ul (4.20-5.40); RED CELL DISTRIBUTION WIDTH 14.4 % (11.5-14.5)
[2018-10-20] MEDS: BUMETANIDE 1 MG TAB PO (06:12)
[2018-10-20] MEDS: PANTOPRAZOLE (EC) 40 MG TAB PO (06:12)
[2018-10-20] MEDS: CLINDAMYCIN 600 MG/D5W (PMX) 50 ML IVPB ×3 (06:13→22:11)
[2018-10-20 06:43] LABS: ALANINE AMINOTRANSFERASE 35 IU/L (13-69); ALBUMIN 2.6 g/dl (3.3-4.9); ALBUMIN/GLOBULIN RATIO 0.86; ALKALINE PHOSPHATASE 232 IU/L (42-121); ANION GAP 6 (5-13); ASPARTATE AMINO TRANSFERASE 20 IU/L (15-46); BILIRUBIN,INDIRECT 0.2 mg/dl (0-1.1); BILIRUBIN,TOTAL 0.2 mg/dl (0.2-1.3); BLOOD UREA NITROGEN 36 mg/dl (7-20); CALCIUM 8.3 mg/dl (8.4-10.2); CARBON DIOXIDE 33 mmol/L (21-31); CHLORIDE 105 mmol/L (97-110); CREATININE 0.98 mg/dl (0.44-1.00); Estimated GFR 59 mL/min (>60); GLUCOSE 118 mg/dl (70-220); MAGNESIUM 1.8 mg/dl (1.7-2.5); POTASSIUM 3.9 mmol/L (3.5-5.1); SODIUM 144 mmol/L (135-144); TOTAL PROTEIN 5.6 g/dl (6.1-8.1)
[2018-10-20] MEDS: INSULIN ASPART [NOVOLOG] 3 ML PEN SC ×7 (08:00→20:44)
[2018-10-20] MEDS: CLOPIDOGREL 75 MG TAB PO (08:25)
[2018-10-20] MEDS: SENNA/DOCUSATE NA (8.6MG/50MG) TAB PO ×2 (08:25→20:45)
[2018-10-20] MEDS: SUCRALFATE (100 MG/ML) 10ML CUP PO ×4 (08:25→20:46)
[2018-10-20] MEDS: ASPIRIN 81 MG TAB PO (08:25)
[2018-10-20] MEDS: NIFEdipine (XL) 60 MG TAB PO ×2 (08:26→20:46)
[2018-10-20] MEDS: POLYETHYLENE GLYCOL 17 GM PACKET PO (08:26)
[2018-10-20] MEDS: LISINOPRIL 10 MG TAB PO ×2 (08:26→20:45)
[2018-10-20] MEDS: METOPROLOL 25 MG TAB PO ×2 (08:27→20:45)
[2018-10-20] MEDS: INSULIN GLARGINE [LANTus] (100 UNITS/ML) SYG SC (08:29)
[2018-10-20] MEDS: ALBUTEROL/IPRATROPIUM (NEB) 3 ML AMP HHN ×3 (08:43→21:04)
[2018-10-20] MEDS: COLLAGENASE 5 GM (UD JAR) TOP (11:51)
[2018-10-20] MEDS: SODIUM HYPOCHLORITE (1/40) 1 APPLIC BTL IRR (11:52)
[2018-10-20] MEDS: hydrALAzine 20 MG INJ IV (12:00)
[2018-10-20 12:36] LABS: HEMATOCRIT 23.8 % (37.0-47.0); HEMOGLOBIN 7.6 g/dl (12.0-16.0)
[2018-10-20] MEDS: ATORVASTATIN 40 MG TAB PO (20:44)
[2018-10-20] MEDS: MONTELUKAST 10 MG TAB PO (20:46)
[2018-10-21 05:55] LABS: ADD MAN DIFF? NO
[2018-10-21 06:00] LABS: ABNORMAL IP MESSAGE 1; BASOPHILS % 0.2 % (0.0-2.0); EOSINOPHILS # 0.1 10^3/ul (0.0-0.5); EOSINOPHILS % 1.2 % (0.0-7.0); HEMATOCRIT 21.8 % (37.0-47.0); LYMPHOCYTES # 1.4 10^3/ul (0.8-2.9); MEAN CORPUSCULAR HEMOGLOBIN 28.2 pg (29.0-33.0); MEAN CORPUSCULAR HGB CONC 31.2 g/dl (32.0-37.0); MEAN CORPUSCULAR VOLUME 90.5 fl (82.0-101.0); MEAN PLATELET VOLUME 11.5 fl (7.4-10.4); MONOCYTE # 0.6 10^3/ul (0.3-0.9); MONOCYTES % 8.9 % (0.0-11.0); NEUTROPHIL # 4.4 10^3/ul (1.6-7.5); NEUTROPHILS % 68.2 % (39.0-77.0); PLATELET COUNT 150 10^3/UL (140-415); RED BLOOD COUNT 2.41 10^6/ul (4.20-5.40); RED CELL DISTRIBUTION WIDTH 14.6 % (11.5-14.5)
[2018-10-21 06:00] LABS: WHITE BLOOD COUNT 6.5 10^3/ul (4.8-10.8)
[2018-10-21 06:30] LABS: HEMOGLOBIN 6.8 g/dl (12.0-16.0); POSITIVE DIFF @See below
[2018-10-21] MEDS: CLINDAMYCIN 600 MG/D5W (PMX) 50 ML IVPB ×3 (06:35→23:35)
[2018-10-21] MEDS: PANTOPRAZOLE (EC) 40 MG TAB PO (06:35)
[2018-10-21] MEDS: BUMETANIDE 1 MG TAB PO (06:40)
[2018-10-21] MEDS: INSULIN ASPART [NOVOLOG] 3 ML PEN SC ×6 (08:00→21:00)
[2018-10-21] MEDS: SODIUM HYPOCHLORITE (1/40) 1 APPLIC BTL IRR (08:01)
[2018-10-21] MEDS: COLLAGENASE 5 GM (UD JAR) TOP (08:01)
[2018-10-21] MEDS: INSULIN GLARGINE [LANTus] (100 UNITS/ML) SYG SC (08:06)
[2018-10-21] MEDS: ALBUTEROL/IPRATROPIUM (NEB) 3 ML AMP HHN ×4 (08:13→20:52)
[2018-10-21] MEDS: POLYETHYLENE GLYCOL 17 GM PACKET PO (08:57)
[2018-10-21] MEDS: SUCRALFATE (100 MG/ML) 10ML CUP PO ×4 (08:57→23:22)
[2018-10-21] MEDS: METOPROLOL 25 MG TAB PO ×2 (08:57→23:33)
[2018-10-21] MEDS: ASPIRIN 81 MG TAB PO (08:57)
[2018-10-21] MEDS: LISINOPRIL 10 MG TAB PO ×2 (08:57→23:23)
[2018-10-21] MEDS: SENNA/DOCUSATE NA (8.6MG/50MG) TAB PO ×2 (08:58→23:25)
[2018-10-21] MEDS: NIFEdipine (XL) 60 MG TAB PO ×2 (08:58→23:22)
[2018-10-21] MEDS: morphine 2 MG INJ IV (11:55)
[2018-10-21 15:29] LABS: IMMEDIATE SPIN CROSSMATCH 1 1
[2018-10-21] MEDS ORDERED: morphine LIQ (10 MG/5 ML) CUP PO (15:30)
[2018-10-21] MEDS: MONTELUKAST 10 MG TAB PO (23:25)
[2018-10-21] MEDS: ATORVASTATIN 40 MG TAB PO (23:26)
[2018-10-22 05:55] LABS: ADD MAN DIFF? NO
[2018-10-22 06:22] LABS: WHITE BLOOD COUNT 6.9 10^3/ul (4.8-10.8)
[2018-10-22 06:22] LABS: BASOPHILS % 0.3 % (0.0-2.0); EOSINOPHILS # 0.1 10^3/ul (0.0-0.5); EOSINOPHILS % 1.2 % (0.0-7.0); HEMATOCRIT 24.6 % (37.0-47.0); HEMOGLOBIN 7.9 g/dl (12.0-16.0); LYMPHOCYTES # 1.2 10^3/ul (0.8-2.9); LYMPHOCYTES % 17.8 % (15.0-51.0); MEAN CORPUSCULAR HEMOGLOBIN 29.2 pg (29.0-33.0); MEAN CORPUSCULAR HGB CONC 32.1 g/dl (32.0-37.0); MEAN CORPUSCULAR VOLUME 90.8 fl (82.0-101.0); MEAN PLATELET VOLUME 11.6 fl (7.4-10.4); MONOCYTE # 0.6 10^3/ul (0.3-0.9); MONOCYTES % 8.4 % (0.0-11.0); PLATELET COUNT 178 10^3/UL (140-415); RED BLOOD COUNT 2.71 10^6/ul (4.20-5.40); RED CELL DISTRIBUTION WIDTH 14.9 % (11.5-14.5)
[2018-10-22] MEDS: PANTOPRAZOLE (EC) 40 MG TAB PO (07:10)
[2018-10-22] MEDS: CLINDAMYCIN 600 MG/D5W (PMX) 50 ML IVPB ×3 (07:10→21:37)
[2018-10-22] MEDS: ALBUTEROL/IPRATROPIUM (NEB) 3 ML AMP HHN ×3 (08:00→21:16)
[2018-10-22] MEDS: METOPROLOL 25 MG TAB PO ×2 (09:45→21:26)
[2018-10-22] MEDS: POLYETHYLENE GLYCOL 17 GM PACKET PO (09:46)
[2018-10-22] MEDS: LISINOPRIL 10 MG TAB PO ×2 (09:46→21:25)
[2018-10-22] MEDS: SENNA/DOCUSATE NA (8.6MG/50MG) TAB PO ×2 (09:46→21:25)
[2018-10-22] MEDS: NIFEdipine (XL) 60 MG TAB PO ×2 (09:47→21:24)
[2018-10-22] MEDS: BUMETANIDE 0.5 MG TAB PO (09:47)
[2018-10-22] MEDS: ASPIRIN 81 MG TAB PO (09:48)
[2018-10-22] MEDS: COLLAGENASE 5 GM (UD JAR) TOP (09:48)
[2018-10-22] MEDS: SODIUM HYPOCHLORITE (1/40) 1 APPLIC BTL IRR (09:48)
[2018-10-22] MEDS: SUCRALFATE (100 MG/ML) 10ML CUP PO ×5 (09:48→21:29)
[2018-10-22] MEDS: INSULIN GLARGINE [LANTus] (100 UNITS/ML) SYG SC (09:52)
[2018-10-22] MEDS: INSULIN ASPART [NOVOLOG] 3 ML PEN SC ×4 (09:52→21:00)
[2018-10-22] MEDS: MONTELUKAST 10 MG TAB PO (21:25)
[2018-10-22] MEDS: ATORVASTATIN 40 MG TAB PO (21:25)
== END 2018-10-22 22:55 | disposition home or self-care (01) | DRG 193 ==
LOC: E/R 15:08 → 2NE 10-14 22:57 → TEL 15:17
PROC: 30233N1 Transfusion of Nonautologous Red Blood Cells into Peripheral Vein, Percutaneous Approach (ICD-10-PCS; principal; 2018-10-21)
DX: J18.9 Pneumonia, unspecified organism (principal); J96.01 Acute respiratory failure with hypoxia; N17.9 Acute kidney failure, unspecified; M86.9 Osteomyelitis, unspecified; J98.11 Atelectasis; L97.329 Non-pressure chronic ulcer of left ankle with unspecified severity; J90 Pleural effusion, not elsewhere classified; D63.8 Anemia in other chronic diseases classified elsewhere; E11.621 Type 2 diabetes mellitus with foot ulcer; E11.69 Type 2 diabetes mellitus with other specified complication; E11.42 Type 2 diabetes mellitus with diabetic polyneuropathy; E11.51 Type 2 diabetes mellitus with diabetic peripheral angiopathy without gangrene; E87.70 Fluid overload, unspecified; I10 Essential (primary) hypertension; J45.909 Unspecified asthma, uncomplicated; L97.529 Non-pressure chronic ulcer of other part of left foot with unspecified severity; L89.621 Pressure ulcer of left heel, stage 1; R94.5 Abnormal results of liver function studies; R60.1 Generalized edema; R10.13 Epigastric pain; Z79.02 Long term (current) use of antithrombotics/antiplatelets; Z79.82 Long term (current) use of aspirin; Z79.4 Long term (current) use of insulin
CPT/HCPCS: 36415; 36430; 71045; 74176; 76705; 80048; 80053; 80076; 82787; 82962; 83605; 83690; 83735; 84100; 84484; 85014; 85018; 85025; 85610; 85730; 86038; 86235; 86255; 86376; 86709; 86803; 86850; 86900; 86901; 86920; 87040; 87340; 93005; 93306; 93970; 94640; 94664; 97110; 97116; 97163; 97166; 97530; 97535; 99285-25

== ENCOUNTER 2018-11-15 21:19 | Inpatient (IN) | payer OTHER ==
[2018-11-15] MEDS: SODIUM CHLORIDE 0.9% 1L BAG IV* (23:04)
[2018-11-15] MEDS: ONDANSETRON 4 MG INJ IV (23:04)
[2018-11-15] MEDS: ACETAMINOPHEN 325 MG TAB PO (23:04)
[2018-11-15 23:08] LABS: ADD MAN DIFF? NO
[2018-11-15 23:12] LABS: BASOPHILS % 0.2 % (0.0-2.0); HEMATOCRIT 35.1 % (37.0-47.0); HEMOGLOBIN 11.5 g/dl (12.0-16.0); LYMPHOCYTES # 0.7 10^3/ul (0.8-2.9); LYMPHOCYTES % 6.2 % (15.0-51.0); MEAN CORPUSCULAR HEMOGLOBIN 27.3 pg (29.0-33.0); MEAN CORPUSCULAR HGB CONC 32.8 g/dl (32.0-37.0); MEAN CORPUSCULAR VOLUME 83.4 fl (82.0-101.0); MONOCYTE # 0.5 10^3/ul (0.3-0.9); MONOCYTES % 4.6 % (0.0-11.0); NEUTROPHIL # 9.3 10^3/ul (1.6-7.5); NEUTROPHILS % 88.6 % (39.0-77.0); PLATELET COUNT 289 10^3/UL (140-415); RED BLOOD COUNT 4.21 10^6/ul (4.20-5.40); RED CELL DISTRIBUTION WIDTH 13.2 % (11.5-14.5)
[2018-11-15 23:12] LABS: WHITE BLOOD COUNT 10.5 10^3/ul (4.8-10.8)
[2018-11-15 23:30] LABS: ANION GAP 10 (5-13); BLOOD UREA NITROGEN 25 mg/dl (7-20); CALCIUM 8.3 mg/dl (8.4-10.2); CARBON DIOXIDE 36 mmol/L (21-31); CHLORIDE 89 mmol/L (97-110); CREATININE 1.65 mg/dl (0.44-1.00); Estimated GFR 32 mL/min (>60); GLUCOSE 239 mg/dl (70-220); SODIUM 135 mmol/L (135-144)
[2018-11-15 23:31] LABS: POTASSIUM 1.9 mmol/L (3.5-5.1)
[2018-11-15] MEDS: POTASSIUM CHLORIDE 100 ML IVPB (23:42)
[2018-11-15 23:43] LABS: INR 1.15; PROTIME 14.8 Sec (11.9-14.9); PT RATIO 1.2
[2018-11-15 23:44] LABS: TROPONIN-I 0.169 ng/ml (0.000-0.120)
[2018-11-16] MEDS: ENOXAPARIN 60 MG/0.6 ML SYG SC ×3 (01:30→23:19)
[2018-11-16] MEDS: POTASSIUM CHLORIDE 100 ML IVPB ×6 (02:00→14:14)
[2018-11-16 03:04] LABS: ADD UMIC YES; UR ASCORBIC ACID NEGATIVE (NEGATIVE); UR BACTERIA FEW /HPF (NONE SEEN); UR BILIRUBIN (Dip) NEGATIVE (NEGATIVE); UR BLOOD (Dip) 1+ mg/dL (NEGATIVE); UR CLARITY SLIGHTLY CLOUDY (CLEAR); UR COLOR YELLOW (YELLOW); UR GLUCOSE (Dip) 3+ mg/dL (NEGATIVE); UR KETONES (Dip) NEGATIVE (NEGATIVE); UR LEUKOCYTE ESTERASE (Dip) 1+ Leu/ul (NEGATIVE); UR NITRITE (Dip) NEGATIVE (NEGATIVE); UR RBC 2 /HPF (0-5); UR SPECIFIC GRAVITY (Dip) 1.008 (1.003-1.030); UR SQUAMOUS EPITHELIAL CELL FEW /HPF (FEW); UR TOTAL PROTEIN (Dip) 3+ mg/dl (NEGATIVE); UR UROBILINOGEN (Dip) NEGATIVE (NEGATIVE); UR WBC 35 /HPF (0-5)
[2018-11-16] MEDS: PIPER-TAZO 3.375 GM IV (PMX) 100 ML IVPB ×4 (03:50→18:31)
[2018-11-16] MEDS: VANCOMYCIN 1 GM (PMX) 250 ML IVPB (04:19)
[2018-11-16 05:35] LABS: ADD MAN DIFF? NO
[2018-11-16 05:43] LABS: BASOPHILS % 0.2 % (0.0-2.0); HEMATOCRIT 31.5 % (37.0-47.0); HEMOGLOBIN 10.2 g/dl (12.0-16.0); LYMPHOCYTES # 0.7 10^3/ul (0.8-2.9); LYMPHOCYTES % 8.5 % (15.0-51.0); MEAN CORPUSCULAR HEMOGLOBIN 27.4 pg (29.0-33.0); MEAN CORPUSCULAR HGB CONC 32.4 g/dl (32.0-37.0); MEAN CORPUSCULAR VOLUME 84.7 fl (82.0-101.0); MEAN PLATELET VOLUME 10.5 fl (7.4-10.4); MONOCYTE # 0.5 10^3/ul (0.3-0.9); MONOCYTES % 6.6 % (0.0-11.0); NEUTROPHIL # 6.9 10^3/ul (1.6-7.5); NEUTROPHILS % 84.2 % (39.0-77.0); PLATELET COUNT 232 10^3/UL (140-415); RED BLOOD COUNT 3.72 10^6/ul (4.20-5.40); RED CELL DISTRIBUTION WIDTH 13.2 % (11.5-14.5)
[2018-11-16 05:43] LABS: WHITE BLOOD COUNT 8.2 10^3/ul (4.8-10.8)
[2018-11-16 06:01] LABS: HEMOGLOBIN A1C 8.4 % (0-5.9)
[2018-11-16 06:09] LABS: ALANINE AMINOTRANSFERASE 16 IU/L (13-69); ALBUMIN 2.4 g/dl (3.3-4.9); ALBUMIN/GLOBULIN RATIO 0.64; ALKALINE PHOSPHATASE 172 IU/L (42-121); ANION GAP 6 (5-13); ASPARTATE AMINO TRANSFERASE 37 IU/L (15-46); BILIRUBIN,INDIRECT 0.1 mg/dl (0-1.1); BILIRUBIN,TOTAL 0.1 mg/dl (0.2-1.3); BLOOD UREA NITROGEN 24 mg/dl (7-20); CALCIUM 7.6 mg/dl (8.4-10.2); CARBON DIOXIDE 30 mmol/L (21-31); CHLORIDE 101 mmol/L (97-110); CREATININE 1.44 mg/dl (0.44-1.00); Estimated GFR 38 mL/min (>60); GLUCOSE 241 mg/dl (70-220); SODIUM 137 mmol/L (135-144); TOTAL PROTEIN 6.1 g/dl (6.1-8.1)
[2018-11-16 06:11] LABS: POTASSIUM 2.4 mmol/L (3.5-5.1)
[2018-11-16] MEDS ORDERED: VANCOMYCIN IV PER PHARMACY XX (06:30)
[2018-11-16] MEDS: hydrALAzine 20 MG INJ IV (09:35)
[2018-11-16] MEDS: D5W-0.45 NACL + KCL 20 MEQ 1,000 ML IV ×3 (09:35→21:14)
[2018-11-16] MEDS ORDERED: DEXTROSE 50% 50 ML SYRINGE IV (10:00)
[2018-11-16] MEDS ORDERED: GLUCOSE GEL 15 GRAM TUBE BUCCAL (10:00)
[2018-11-16] MEDS ORDERED: GLUCOSE GEL 15 GRAM TUBE PO ×2 (10:00)
[2018-11-16] MEDS ORDERED: GLUCAGON 1 MG INJ IM (10:00)
[2018-11-16] MEDS ORDERED: POTASSIUM CHLORIDE (SR) 20 MEQ TAB PO (10:05)
[2018-11-16 10:51] LABS: CREATINE KINASE 60 IU/L (23-200)
[2018-11-16 10:52] LABS: CHOLESTEROL 235 mg/dl (100-200); MAGNESIUM 1.8 mg/dl (1.7-2.5)
[2018-11-16 10:52] LABS: CHOL/HDL RATIO 6.3 RATIO; HDL CHOLESTEROL 37 mg/dl (37-92); LDL CHOLESTEROL,CALCULATED 134 mg/dl; TRIGLYCERIDES 319 mg/dl (0-149)
[2018-11-16 11:03] LABS: CK INDEX 1.5; CK-MB 0.88 ng/ml (0.0-2.4)
[2018-11-16] MEDS: MAGNESIUM SULFATE 2 GM/50 ML 50 ML IVPB (11:30)
[2018-11-16] MEDS: AMLODIPINE 10 MG TAB PO (12:04)
[2018-11-16] MEDS: METOPROLOL 25 MG TAB PO ×2 (12:04→21:00)
[2018-11-16] MEDS: ASPIRIN 81 MG TAB PO (12:05)
[2018-11-16] MEDS: INSULIN ASPART [NOVOLOG] 3 ML PEN SC ×5 (12:08→23:18)
[2018-11-16 12:50] LABS: CREATINE KINASE 56 IU/L (23-200)
[2018-11-16 13:02] LABS: CK INDEX 1.6; TROPONIN-I 0.077 ng/ml (0.000-0.120)
[2018-11-16] MEDS: HYDROCODONE/APAP (5/325) TAB PO (18:33)
[2018-11-16 18:50] LABS: POTASSIUM 3.6 mmol/L (3.5-5.1)
[2018-11-16 19:10] LABS: C-REACTIVE PROTEIN 15.3 mg/dl (0.0-0.9)
[2018-11-16 19:34] LABS: ERYTHROCYTE SEDIMENTATION RATE 73 mm/Hr (0-30)
[2018-11-16] MEDS: ATORVASTATIN 40 MG TAB PO (22:03)
[2018-11-16] MEDS: MONTELUKAST 10 MG TAB PO (22:03)
[2018-11-16] MEDS: INSULIN GLARGINE [LANTus] (100 UNITS/ML) SYG SC (23:18)
[2018-11-17] MEDS: PIPER-TAZO 3.375 GM IV (PMX) 100 ML IVPB ×2 (00:41→06:55)
[2018-11-17] MEDS: HYDROCODONE/APAP (5/325) TAB PO ×2 (00:47→17:59)
[2018-11-17] MEDS: ONDANSETRON 4 MG INJ IV (00:47)
[2018-11-17] MEDS: D5W-0.45 NACL + KCL 20 MEQ 1,000 ML IV ×3 (04:32→19:58)
[2018-11-17] MEDS: VANCOMYCIN 1 GM 250 ML IVPB (05:08)
[2018-11-17 06:02] LABS: ADD MAN DIFF? NO
[2018-11-17 06:16] LABS: WHITE BLOOD COUNT 6.8 10^3/ul (4.8-10.8)
[2018-11-17 06:16] LABS: BASOPHILS % 0.1 % (0.0-2.0); EOSINOPHILS # 0.1 10^3/ul (0.0-0.5); EOSINOPHILS % 1.3 % (0.0-7.0); HEMATOCRIT 27.5 % (37.0-47.0); HEMOGLOBIN 8.8 g/dl (12.0-16.0); LYMPHOCYTES # 1.4 10^3/ul (0.8-2.9); LYMPHOCYTES % 21.1 % (15.0-51.0); MEAN CORPUSCULAR HEMOGLOBIN 27.3 pg (29.0-33.0); MEAN CORPUSCULAR VOLUME 85.4 fl (82.0-101.0); MEAN PLATELET VOLUME 11.5 fl (7.4-10.4); MONOCYTE # 0.7 10^3/ul (0.3-0.9); MONOCYTES % 9.7 % (0.0-11.0); NEUTROPHIL # 4.6 10^3/ul (1.6-7.5); NEUTROPHILS % 67.4 % (39.0-77.0); PLATELET COUNT 229 10^3/UL (140-415); RED BLOOD COUNT 3.22 10^6/ul (4.20-5.40); RED CELL DISTRIBUTION WIDTH 13.9 % (11.5-14.5)
[2018-11-17 06:33] LABS: PHOSPHORUS 3.5 mg/dl (2.5-4.9)
[2018-11-17 06:33] LABS: MAGNESIUM 2.5 mg/dl (1.7-2.5)
[2018-11-17 06:34] LABS: ALANINE AMINOTRANSFERASE 23 IU/L (13-69); ALBUMIN 2.2 g/dl (3.3-4.9); ALBUMIN/GLOBULIN RATIO 0.62; ALKALINE PHOSPHATASE 232 IU/L (42-121); ANION GAP 10 (5-13); ASPARTATE AMINO TRANSFERASE 44 IU/L (15-46); BLOOD UREA NITROGEN 32 mg/dl (7-20); CALCIUM 7.7 mg/dl (8.4-10.2); CARBON DIOXIDE 28 mmol/L (21-31); CHLORIDE 99 mmol/L (97-110); CREATININE 1.74 mg/dl (0.44-1.00); Estimated GFR 30 mL/min (>60); GLUCOSE 182 mg/dl (70-220); POTASSIUM 3.2 mmol/L (3.5-5.1); SODIUM 137 mmol/L (135-144); TOTAL PROTEIN 5.7 g/dl (6.1-8.1)
[2018-11-17 06:42] LABS: TROPONIN-I 0.049 ng/ml (0.000-0.120)
[2018-11-17 06:43] LABS: FREE T4 (FREE THYROXINE) 1.53 ng/dl (0.64-1.79)
[2018-11-17] MEDS: INSULIN ASPART [NOVOLOG] 3 ML PEN SC ×7 (07:55→20:56)
[2018-11-17] MEDS: ASPIRIN 81 MG TAB PO (09:34)
[2018-11-17] MEDS: AMLODIPINE 10 MG TAB PO (09:34)
[2018-11-17] MEDS: METOPROLOL 25 MG TAB PO ×2 (09:35→20:58)
[2018-11-17] MEDS: POTASSIUM CHLORIDE (SR) 20 MEQ TAB PO (10:05)
[2018-11-17] MEDS: CEFEPIME 1GM/50 ML (PMX) 50 ML IVPB ×2 (13:22→20:59)
[2018-11-17] MEDS: HEPARIN 5,000 UNIT/1 ML VIAL SC ×2 (13:37→21:21)
[2018-11-17] MEDS: DAPTOMYCIN 340 MG in SOD CHLORIDE 0.9% 100 ML IVPB (15:09)
[2018-11-17 18:34] LABS: ADD UMIC YES; UR ASCORBIC ACID NEGATIVE (NEGATIVE); UR BILIRUBIN (Dip) NEGATIVE (NEGATIVE); UR BLOOD (Dip) 1+ mg/dL (NEGATIVE); UR CLARITY SLIGHTLY CLOUDY (CLEAR); UR COLOR YELLOW (YELLOW); UR GLUCOSE (Dip) 3+ mg/dL (NEGATIVE); UR KETONES (Dip) NEGATIVE (NEGATIVE); UR LEUKOCYTE ESTERASE (Dip) NEGATIVE Leu/ul (NEGATIVE); UR NITRITE (Dip) NEGATIVE (NEGATIVE); UR RBC 5 /HPF (0-5); UR SPECIFIC GRAVITY (Dip) 1.013 (1.003-1.030); UR TOTAL PROTEIN (Dip) 3+ mg/dl (NEGATIVE); UR UROBILINOGEN (Dip) NEGATIVE (NEGATIVE); UR WBC 15 /HPF (0-5)
[2018-11-17] MEDS: ATORVASTATIN 40 MG TAB PO (20:58)
[2018-11-17] MEDS: MONTELUKAST 10 MG TAB PO (20:59)
[2018-11-17] MEDS: INSULIN GLARGINE [LANTus] (100 UNITS/ML) SYG SC (21:20)
[2018-11-18] MEDS: HYDROCODONE/APAP (5/325) TAB PO (02:14)
[2018-11-18] MEDS: D5W-0.45 NACL + KCL 20 MEQ 1,000 ML IV ×5 (03:14→23:14)
[2018-11-18] MEDS: HEPARIN 5,000 UNIT/1 ML VIAL SC ×3 (05:27→21:51)
[2018-11-18 05:41] LABS: ADD MAN DIFF? NO
[2018-11-18 05:45] LABS: WHITE BLOOD COUNT 7.9 10^3/ul (4.8-10.8)
[2018-11-18 05:45] LABS: BASOPHILS % 0.1 % (0.0-2.0); EOSINOPHILS # 0.1 10^3/ul (0.0-0.5); HEMATOCRIT 27.5 % (37.0-47.0); HEMOGLOBIN 8.6 g/dl (12.0-16.0); LYMPHOCYTES # 1.6 10^3/ul (0.8-2.9); LYMPHOCYTES % 20.3 % (15.0-51.0); MEAN CORPUSCULAR HEMOGLOBIN 27.1 pg (29.0-33.0); MEAN CORPUSCULAR HGB CONC 31.3 g/dl (32.0-37.0); MEAN CORPUSCULAR VOLUME 86.8 fl (82.0-101.0); MEAN PLATELET VOLUME 11.1 fl (7.4-10.4); MONOCYTE # 0.7 10^3/ul (0.3-0.9); MONOCYTES % 8.7 % (0.0-11.0); NEUTROPHIL # 5.5 10^3/ul (1.6-7.5); NEUTROPHILS % 69.5 % (39.0-77.0); PLATELET COUNT 232 10^3/UL (140-415); RED BLOOD COUNT 3.17 10^6/ul (4.20-5.40); RED CELL DISTRIBUTION WIDTH 13.8 % (11.5-14.5)
[2018-11-18 06:24] LABS: ANION GAP 9 (5-13); BLOOD UREA NITROGEN 28 mg/dl (7-20); CALCIUM 7.8 mg/dl (8.4-10.2); CARBON DIOXIDE 25 mmol/L (21-31); CHLORIDE 101 mmol/L (97-110); Estimated GFR 27 mL/min (>60); GLUCOSE 209 mg/dl (70-220); MAGNESIUM 2.2 mg/dl (1.7-2.5); PHOSPHORUS 3.6 mg/dl (2.5-4.9); POTASSIUM 4.3 mmol/L (3.5-5.1); SODIUM 135 mmol/L (135-144)
[2018-11-18] MEDS: ASPIRIN 81 MG TAB PO (08:29)
[2018-11-18] MEDS: CEFEPIME 1GM/50 ML (PMX) 50 ML IVPB ×2 (08:29→20:32)
[2018-11-18] MEDS: METOPROLOL 25 MG TAB PO ×2 (08:30→20:32)
[2018-11-18] MEDS: AMLODIPINE 10 MG TAB PO (08:31)
[2018-11-18] MEDS: INSULIN ASPART [NOVOLOG] 3 ML PEN SC ×7 (08:36→20:37)
[2018-11-18] MEDS: DAPTOMYCIN 340 MG in SOD CHLORIDE 0.9% 100 ML IVPB (13:46)
[2018-11-18] MEDS: ATORVASTATIN 40 MG TAB PO (20:32)
[2018-11-18] MEDS: MONTELUKAST 10 MG TAB PO (20:32)
[2018-11-18] MEDS: INSULIN GLARGINE [LANTus] (100 UNITS/ML) SYG SC (20:37)
[2018-11-19 01:51] LABS: CREATININE,URINE RANDOM 30.68 mg/dl (20-320)
[2018-11-19 01:51] LABS: SODIUM,URINE RANDOM 26 mmol/L (30-90)
[2018-11-19] MEDS: HEPARIN 5,000 UNIT/1 ML VIAL SC ×3 (06:01→22:19)
[2018-11-19] MEDS: D5W-0.45 NACL + KCL 20 MEQ 1,000 ML IV ×2 (06:01→18:00)
[2018-11-19] MEDS: INSULIN ASPART [NOVOLOG] 3 ML PEN SC ×7 (08:55→21:09)
[2018-11-19] MEDS: CEFEPIME 1GM/50 ML (PMX) 50 ML IVPB (08:57)
[2018-11-19] MEDS: AMLODIPINE 10 MG TAB PO (08:59)
[2018-11-19] MEDS: METOPROLOL 25 MG TAB PO ×2 (08:59→21:04)
[2018-11-19] MEDS: ASPIRIN 81 MG TAB PO (08:59)
[2018-11-19 09:30] LABS: ADD MAN DIFF? NO; HAAIG REFLEX REFLEX FILED
[2018-11-19 09:34] LABS: WHITE BLOOD COUNT 8.3 10^3/ul (4.8-10.8)
[2018-11-19 09:34] LABS: BASOPHILS % 0.4 % (0.0-2.0); EOSINOPHILS # 0.1 10^3/ul (0.0-0.5); EOSINOPHILS % 1.1 % (0.0-7.0); HEMATOCRIT 30.3 % (37.0-47.0); HEMOGLOBIN 9.4 g/dl (12.0-16.0); LYMPHOCYTES # 1.6 10^3/ul (0.8-2.9); LYMPHOCYTES % 18.7 % (15.0-51.0); MEAN CORPUSCULAR HEMOGLOBIN 26.9 pg (29.0-33.0); MEAN CORPUSCULAR VOLUME 86.6 fl (82.0-101.0); MEAN PLATELET VOLUME 11.2 fl (7.4-10.4); MONOCYTE # 0.6 10^3/ul (0.3-0.9); MONOCYTES % 7.1 % (0.0-11.0); NEUTROPHILS % 72.1 % (39.0-77.0); PLATELET COUNT 282 10^3/UL (140-415); RED CELL DISTRIBUTION WIDTH 13.9 % (11.5-14.5)
[2018-11-19 10:00] LABS: ANION GAP 5 (5-13); BLOOD UREA NITROGEN 22 mg/dl (7-20); CALCIUM 8.4 mg/dl (8.4-10.2); CARBON DIOXIDE 24 mmol/L (21-31); CHLORIDE 109 mmol/L (97-110); CREATININE 1.37 mg/dl (0.44-1.00); Estimated GFR 40 mL/min (>60); GLUCOSE 196 mg/dl (70-220); POTASSIUM 4.1 mmol/L (3.5-5.1); SODIUM 138 mmol/L (135-144)
[2018-11-19 11:20] LABS: C-REACTIVE PROTEIN 5.1 mg/dl (0.0-0.9)
[2018-11-19 11:48] LABS: ERYTHROCYTE SEDIMENTATION RATE 100 mm/Hr (0-30)
[2018-11-19 12:03] LABS: ALANINE AMINOTRANSFERASE 22 IU/L (13-69); ALBUMIN 2.6 g/dl (3.3-4.9); ALKALINE PHOSPHATASE 468 IU/L (42-121); ASPARTATE AMINO TRANSFERASE 35 IU/L (15-46)
[2018-11-19] MEDS: DAPTOMYCIN 340 MG in SOD CHLORIDE 0.9% 100 ML IVPB (14:52)
[2018-11-19 15:31] LABS: COMPLEMENT C3 98 mg/dl (88-165); COMPLEMENT C4 46 mg/dl (14-44)
[2018-11-19 15:56] LABS: HEPATITIS B SURFACE ANTIGEN NEGATIVE (NEGATIVE)
[2018-11-19 16:13] LABS: HEPATITIS B CORE ANTIBODY NEGATIVE (NEGATIVE); HEPATITIS C VIRAL ANTIBODY NEGATIVE (NEGATIVE)
[2018-11-19] MEDS: ATORVASTATIN 40 MG TAB PO (21:04)
[2018-11-19] MEDS: MONTELUKAST 10 MG TAB PO (21:05)
[2018-11-19] MEDS: INSULIN GLARGINE [LANTus] (100 UNITS/ML) SYG SC (21:06)
[2018-11-19 23:02] LABS: RHEUMATOID FACTOR NEGATIVE (NEGATIVE)
[2018-11-19] MEDS: BENZONATATE 100 MG CAP PO (23:45)
[2018-11-20] MEDS: D5W-0.45 NACL + KCL 20 MEQ 1,000 ML IV ×2 (04:32→04:53)
[2018-11-20 05:26] LABS: ADD MAN DIFF? NO
[2018-11-20 05:29] LABS: WHITE BLOOD COUNT 9.4 10^3/ul (4.8-10.8)
[2018-11-20 05:29] LABS: BASOPHILS % 0.2 % (0.0-2.0); EOSINOPHILS # 0.1 10^3/ul (0.0-0.5); EOSINOPHILS % 1.3 % (0.0-7.0); HEMATOCRIT 26.5 % (37.0-47.0); HEMOGLOBIN 8.3 g/dl (12.0-16.0); LYMPHOCYTES # 1.9 10^3/ul (0.8-2.9); MEAN CORPUSCULAR HEMOGLOBIN 27.1 pg (29.0-33.0); MEAN CORPUSCULAR HGB CONC 31.3 g/dl (32.0-37.0); MEAN CORPUSCULAR VOLUME 86.6 fl (82.0-101.0); MEAN PLATELET VOLUME 10.7 fl (7.4-10.4); MONOCYTE # 0.6 10^3/ul (0.3-0.9); MONOCYTES % 6.1 % (0.0-11.0); NEUTROPHIL # 6.8 10^3/ul (1.6-7.5); PLATELET COUNT 262 10^3/UL (140-415); RED BLOOD COUNT 3.06 10^6/ul (4.20-5.40); RED CELL DISTRIBUTION WIDTH 14.1 % (11.5-14.5)
[2018-11-20 05:51] LABS: ANION GAP 7 (5-13); BLOOD UREA NITROGEN 24 mg/dl (7-20); CARBON DIOXIDE 24 mmol/L (21-31); CHLORIDE 105 mmol/L (97-110); CREATININE 1.28 mg/dl (0.44-1.00); Estimated GFR 43 mL/min (>60); GLUCOSE 225 mg/dl (70-220); MAGNESIUM 1.8 mg/dl (1.7-2.5); PHOSPHORUS 4.2 mg/dl (2.5-4.9); POTASSIUM 4.5 mmol/L (3.5-5.1); SODIUM 136 mmol/L (135-144)
[2018-11-20] MEDS: LEVOFLOXACIN 500 MG TAB PO (06:10)
[2018-11-20] MEDS: HEPARIN 5,000 UNIT/1 ML VIAL SC ×3 (06:11→22:01)
[2018-11-20] MEDS: ASPIRIN 81 MG TAB PO (08:51)
[2018-11-20] MEDS: METOPROLOL 25 MG TAB PO ×2 (08:52→20:41)
[2018-11-20] MEDS: AMLODIPINE 10 MG TAB PO (08:53)
[2018-11-20] MEDS: INSULIN ASPART [NOVOLOG] 3 ML PEN SC ×7 (08:55→20:44)
[2018-11-20 12:27] LABS: ANA SCREEN NEGATIVE (NEGATIVE); MYELOPEROXIDASE ANTIBODY <1.0 AI; PROTEINASE-3 ANTIBODY <1.0 AI
[2018-11-20] MEDS: AMPICILLIN 1 GM/NS (PMX) 50 ML IVPB ×2 (13:58→21:54)
[2018-11-20 16:18] LABS: CREATININE, RANDOM URINE 35 mg/dL (20-275); MICROALBUMIN 56.1 mg/dL; MICROALBUMIN/CREATININE RATIO 1603 (<30)
[2018-11-20] MEDS: ATORVASTATIN 40 MG TAB PO (20:40)
[2018-11-20] MEDS: MONTELUKAST 10 MG TAB PO (20:41)
[2018-11-20] MEDS: INSULIN GLARGINE [LANTus] (100 UNITS/ML) SYG SC (20:44)
[2018-11-21] MEDS: AMPICILLIN 1 GM/NS (PMX) 50 ML IVPB ×3 (05:26→21:18)
[2018-11-21] MEDS: LEVOFLOXACIN 250 MG TAB PO (05:26)
[2018-11-21] MEDS: HEPARIN 5,000 UNIT/1 ML VIAL SC ×3 (05:28→21:20)
[2018-11-21 06:40] LABS: PHOSPHORUS 4.1 mg/dl (2.5-4.9)
[2018-11-21 06:40] LABS: MAGNESIUM 1.8 mg/dl (1.7-2.5)
[2018-11-21 06:55] LABS: ALANINE AMINOTRANSFERASE 18 IU/L (13-69); ALBUMIN 2.5 g/dl (3.3-4.9); ALBUMIN/GLOBULIN RATIO 0.78; ALKALINE PHOSPHATASE 367 IU/L (42-121); ANION GAP 5 (5-13); ASPARTATE AMINO TRANSFERASE 25 IU/L (15-46); BLOOD UREA NITROGEN 26 mg/dl (7-20); CALCIUM 8.4 mg/dl (8.4-10.2); CARBON DIOXIDE 23 mmol/L (21-31); CHLORIDE 108 mmol/L (97-110); CREATININE 1.25 mg/dl (0.44-1.00); Estimated GFR 44 mL/min (>60); GLUCOSE 151 mg/dl (70-220); POTASSIUM 4.5 mmol/L (3.5-5.1); SODIUM 136 mmol/L (135-144); TOTAL PROTEIN 5.7 g/dl (6.1-8.1)
[2018-11-21] MEDS: INSULIN ASPART [NOVOLOG] 3 ML PEN SC ×7 (08:19→21:21)
[2018-11-21] MEDS: AMLODIPINE 10 MG TAB PO (08:48)
[2018-11-21] MEDS: ASPIRIN 81 MG TAB PO (08:48)
[2018-11-21] MEDS: METOPROLOL 25 MG TAB PO ×2 (08:49→21:18)
[2018-11-21 14:52] LABS: ANCA SCREEN NEGATIVE (NEGATIVE)
[2018-11-21 16:26] LABS: ANTI-DNA (DOUBLE STRANDED) <95 U/mL (< 301)
[2018-11-21] MEDS: ATORVASTATIN 40 MG TAB PO (21:18)
[2018-11-21] MEDS: MONTELUKAST 10 MG TAB PO (21:18)
[2018-11-21] MEDS: INSULIN GLARGINE [LANTus] (100 UNITS/ML) SYG SC (21:21)
[2018-11-22] MEDS: LEVOFLOXACIN 250 MG TAB PO (05:45)
[2018-11-22] MEDS: AMPICILLIN 1 GM/NS (PMX) 50 ML IVPB ×3 (05:45→22:09)
[2018-11-22 05:53] LABS: ANION GAP 5 (5-13); BLOOD UREA NITROGEN 29 mg/dl (7-20); CALCIUM 8.3 mg/dl (8.4-10.2); CARBON DIOXIDE 25 mmol/L (21-31); CHLORIDE 105 mmol/L (97-110); CREATININE 1.17 mg/dl (0.44-1.00); Estimated GFR 48 mL/min (>60); GLUCOSE 240 mg/dl (70-220); MAGNESIUM 1.7 mg/dl (1.7-2.5); PHOSPHORUS 3.7 mg/dl (2.5-4.9); SODIUM 135 mmol/L (135-144)
[2018-11-22] MEDS: HEPARIN 5,000 UNIT/1 ML VIAL SC ×3 (05:53→22:11)
[2018-11-22] MEDS: INSULIN ASPART [NOVOLOG] 3 ML PEN SC ×7 (08:25→20:58)
[2018-11-22] MEDS: METOPROLOL 25 MG TAB PO ×2 (08:53→20:54)
[2018-11-22] MEDS: ASPIRIN 81 MG TAB PO (08:53)
[2018-11-22] MEDS: AMLODIPINE 10 MG TAB PO (08:54)
[2018-11-22] MEDS: ATORVASTATIN 40 MG TAB PO (20:54)
[2018-11-22] MEDS: MONTELUKAST 10 MG TAB PO (20:54)
[2018-11-22] MEDS: INSULIN GLARGINE [LANTus] (100 UNITS/ML) SYG SC (20:59)
[2018-11-23] MEDS: AMPICILLIN 1 GM/NS (PMX) 50 ML IVPB ×3 (05:22→22:31)
[2018-11-23] MEDS: HEPARIN 5,000 UNIT/1 ML VIAL SC ×3 (05:30→22:34)
[2018-11-23] MEDS: LEVOFLOXACIN 250 MG TAB PO (05:30)
[2018-11-23 06:21] LABS: ADD MAN DIFF? NO
[2018-11-23 06:31] LABS: BASOPHILS % 0.4 % (0.0-2.0); EOSINOPHILS # 0.2 10^3/ul (0.0-0.5); EOSINOPHILS % 2.1 % (0.0-7.0); HEMATOCRIT 25.9 % (37.0-47.0); LYMPHOCYTES # 1.7 10^3/ul (0.8-2.9); LYMPHOCYTES % 21.1 % (15.0-51.0); MEAN CORPUSCULAR HEMOGLOBIN 26.9 pg (29.0-33.0); MEAN CORPUSCULAR HGB CONC 30.9 g/dl (32.0-37.0); MEAN CORPUSCULAR VOLUME 87.2 fl (82.0-101.0); MEAN PLATELET VOLUME 10.3 fl (7.4-10.4); MONOCYTE # 0.6 10^3/ul (0.3-0.9); MONOCYTES % 7.6 % (0.0-11.0); NEUTROPHIL # 5.4 10^3/ul (1.6-7.5); NEUTROPHILS % 67.2 % (39.0-77.0); PLATELET COUNT 389 10^3/UL (140-415); RED BLOOD COUNT 2.97 10^6/ul (4.20-5.40); RED CELL DISTRIBUTION WIDTH 14.5 % (11.5-14.5)
[2018-11-23 06:46] LABS: ANION GAP 7 (5-13); BLOOD UREA NITROGEN 33 mg/dl (7-20); CALCIUM 8.4 mg/dl (8.4-10.2); CARBON DIOXIDE 23 mmol/L (21-31); CHLORIDE 108 mmol/L (97-110); CREATININE 1.35 mg/dl (0.44-1.00); Estimated GFR 41 mL/min (>60); GLUCOSE 199 mg/dl (70-220); POTASSIUM 4.9 mmol/L (3.5-5.1); SODIUM 138 mmol/L (135-144)
[2018-11-23 06:54] LABS: PHOSPHORUS 4.3 mg/dl (2.5-4.9)
[2018-11-23 06:54] LABS: MAGNESIUM 1.7 mg/dl (1.7-2.5)
[2018-11-23] MEDS: INSULIN ASPART [NOVOLOG] 3 ML PEN SC ×7 (07:59→21:00)
[2018-11-23] MEDS ORDERED: MIDAZOLAM 1 MG/ML 2 ML INJ (09:58)
[2018-11-23] MEDS ORDERED: LIDOCAINE 1% (MDV) 20 ML INJ (09:58)
[2018-11-23] MEDS ORDERED: HEPARIN 1000 UNITS/NS (A-LINE) 1,000 ML (09:58)
[2018-11-23] MEDS ORDERED: FENTAnyl 50 MCG/ML VIAL (09:58)
[2018-11-23] MEDS ORDERED: IODIXANOL LOCM 100 ML BTL ×2 (09:58→10:20)
[2018-11-23] MEDS ORDERED: HEPARIN 1000 UNITS/ML 10 ML INJ (10:20)
[2018-11-23] MEDS: METOPROLOL 25 MG TAB PO ×2 (12:58→21:37)
[2018-11-23] MEDS: ASPIRIN 81 MG TAB PO (12:59)
[2018-11-23] MEDS: AMLODIPINE 10 MG TAB PO (12:59)
[2018-11-23] MEDS: CLOPIDOGREL 75 MG TAB PO (13:11)
[2018-11-23] MEDS: DOCUSATE SODIUM 100 MG CAP PO (18:07)
[2018-11-23] MEDS: HYDROCODONE/APAP (5/325) TAB PO (21:36)
[2018-11-23] MEDS: MONTELUKAST 10 MG TAB PO (21:37)
[2018-11-23] MEDS: LACTOBACILLUS RHAMNOSUS CAP PO (21:37)
[2018-11-23] MEDS: ATORVASTATIN 40 MG TAB PO (21:38)
[2018-11-23] MEDS: INSULIN GLARGINE [LANTus] (100 UNITS/ML) SYG SC (21:50)
[2018-11-23] MEDS: MAGNESIUM HYDROXIDE 30ML CUP PO (22:30)
[2018-11-23] MEDS ORDERED: BISACODYL (EC) 5 MG TAB PO (23:30)
[2018-11-23] MEDS ORDERED: BISACODYL 10 MG SUPP PR (23:30)
[2018-11-24] MEDS: LEVOFLOXACIN 250 MG TAB PO (06:25)
[2018-11-24] MEDS: HEPARIN 5,000 UNIT/1 ML VIAL SC ×3 (06:33→21:16)
[2018-11-24] MEDS: AMPICILLIN 1 GM/NS (PMX) 50 ML IVPB ×3 (06:48→21:07)
[2018-11-24] MEDS: INSULIN ASPART [NOVOLOG] 3 ML PEN SC ×7 (08:00→20:11)
[2018-11-24] MEDS: ASPIRIN 81 MG TAB PO (08:17)
[2018-11-24] MEDS: LACTOBACILLUS RHAMNOSUS CAP PO ×2 (08:17→21:04)
[2018-11-24] MEDS: AMLODIPINE 10 MG TAB PO (08:17)
[2018-11-24] MEDS: CLOPIDOGREL 75 MG TAB PO (08:17)
[2018-11-24] MEDS: METOPROLOL 25 MG TAB PO ×2 (08:25→21:07)
[2018-11-24] MEDS: HYDROCODONE/APAP (5/325) TAB PO (10:42)
[2018-11-24] MEDS: DOCUSATE SODIUM 100 MG CAP PO (10:42)
[2018-11-24] MEDS: INSULIN GLARGINE [LANTus] (100 UNITS/ML) SYG SC (20:16)
[2018-11-24] MEDS: SENNA/DOCUSATE NA (8.6MG/50MG) TAB PO (21:06)
[2018-11-24] MEDS: MONTELUKAST 10 MG TAB PO (21:07)
[2018-11-24] MEDS: ATORVASTATIN 40 MG TAB PO (21:07)
[2018-11-25] MEDS: HYDROCODONE/APAP (5/325) TAB PO (01:58)
[2018-11-25 05:25] LABS: ADD MAN DIFF? NO
[2018-11-25 05:34] LABS: BASOPHILS % 0.3 % (0.0-2.0); EOSINOPHILS # 0.2 10^3/ul (0.0-0.5); EOSINOPHILS % 1.5 % (0.0-7.0); HEMATOCRIT 25.9 % (37.0-47.0); LYMPHOCYTES # 1.5 10^3/ul (0.8-2.9); LYMPHOCYTES % 13.5 % (15.0-51.0); MEAN CORPUSCULAR HEMOGLOBIN 27.3 pg (29.0-33.0); MEAN CORPUSCULAR HGB CONC 30.9 g/dl (32.0-37.0); MEAN CORPUSCULAR VOLUME 88.4 fl (82.0-101.0); MONOCYTE # 0.6 10^3/ul (0.3-0.9); MONOCYTES % 5.4 % (0.0-11.0); NEUTROPHIL # 8.5 10^3/ul (1.6-7.5); NEUTROPHILS % 78.6 % (39.0-77.0); PLATELET COUNT 372 10^3/UL (140-415); RED BLOOD COUNT 2.93 10^6/ul (4.20-5.40); RED CELL DISTRIBUTION WIDTH 14.5 % (11.5-14.5)
[2018-11-25 05:34] LABS: WHITE BLOOD COUNT 10.8 10^3/ul (4.8-10.8)
[2018-11-25] MEDS: AMPICILLIN 1 GM/NS (PMX) 50 ML IVPB ×2 (05:36→15:10)
[2018-11-25] MEDS: LEVOFLOXACIN 250 MG TAB PO (05:36)
[2018-11-25] MEDS: HEPARIN 5,000 UNIT/1 ML VIAL SC ×3 (05:41→22:00)
[2018-11-25 06:15] LABS: ANION GAP 9 (5-13); BLOOD UREA NITROGEN 29 mg/dl (7-20); CALCIUM 8.6 mg/dl (8.4-10.2); CARBON DIOXIDE 27 mmol/L (21-31); CHLORIDE 105 mmol/L (97-110); CREATININE 1.22 mg/dl (0.44-1.00); Estimated GFR 46 mL/min (>60); GLUCOSE 119 mg/dl (70-220); MAGNESIUM 1.9 mg/dl (1.7-2.5); PHOSPHORUS 4.9 mg/dl (2.5-4.9); POTASSIUM 5.1 mmol/L (3.5-5.1); SODIUM 141 mmol/L (135-144)
[2018-11-25] MEDS: INSULIN ASPART [NOVOLOG] 3 ML PEN SC ×7 (08:00→21:00)
[2018-11-25] MEDS: AMLODIPINE 10 MG TAB PO (08:13)
[2018-11-25] MEDS: LACTOBACILLUS RHAMNOSUS CAP PO ×2 (08:14→21:35)
[2018-11-25] MEDS: ASPIRIN 81 MG TAB PO (08:14)
[2018-11-25] MEDS: CLOPIDOGREL 75 MG TAB PO (08:14)
[2018-11-25] MEDS: METOPROLOL 25 MG TAB PO ×2 (08:14→21:40)
[2018-11-25] MEDS: LISINOPRIL 5 MG TAB PO (09:00)
[2018-11-25] MEDS: INSULIN GLARGINE [LANTus] (100 UNITS/ML) SYG SC ×2 (20:00)
[2018-11-25] MEDS: MONTELUKAST 10 MG TAB PO (21:35)
[2018-11-25] MEDS: ATORVASTATIN 40 MG TAB PO (21:35)
[2018-11-26] MEDS: AMPICILLIN 1 GM/NS (PMX) 50 ML IVPB ×4 (00:49→22:42)
[2018-11-26] MEDS: DEXTROSE 5%-0.45% NACL 1,000 ML IV ×3 (00:50→23:55)
[2018-11-26] MEDS: INSULIN GLARGINE [LANTus] (100 UNITS/ML) SYG SC ×2 (00:58→20:49)
[2018-11-26 05:10] LABS: ADD MAN DIFF? NO
[2018-11-26] MEDS: HEPARIN 5,000 UNIT/1 ML VIAL SC ×3 (05:12→22:44)
[2018-11-26] MEDS: LEVOFLOXACIN 250 MG TAB PO (05:13)
[2018-11-26 05:20] LABS: BASOPHILS % 0.2 % (0.0-2.0); EOSINOPHILS # 0.2 10^3/ul (0.0-0.5); EOSINOPHILS % 1.6 % (0.0-7.0); HEMOGLOBIN 8.1 g/dl (12.0-16.0); LYMPHOCYTES # 1.6 10^3/ul (0.8-2.9); LYMPHOCYTES % 16.6 % (15.0-51.0); MEAN CORPUSCULAR HEMOGLOBIN 27.5 pg (29.0-33.0); MEAN CORPUSCULAR HGB CONC 31.2 g/dl (32.0-37.0); MEAN CORPUSCULAR VOLUME 88.1 fl (82.0-101.0); MONOCYTE # 0.6 10^3/ul (0.3-0.9); NEUTROPHIL # 7.3 10^3/ul (1.6-7.5); NEUTROPHILS % 74.9 % (39.0-77.0); PLATELET COUNT 360 10^3/UL (140-415); RED BLOOD COUNT 2.95 10^6/ul (4.20-5.40); RED CELL DISTRIBUTION WIDTH 14.4 % (11.5-14.5)
[2018-11-26 05:20] LABS: WHITE BLOOD COUNT 9.7 10^3/ul (4.8-10.8)
[2018-11-26 05:57] LABS: ANION GAP 5 (5-13); BLOOD UREA NITROGEN 28 mg/dl (7-20); CALCIUM 8.5 mg/dl (8.4-10.2); CARBON DIOXIDE 28 mmol/L (21-31); CHLORIDE 102 mmol/L (97-110); CREATININE 1.04 mg/dl (0.44-1.00); Estimated GFR 55 mL/min (>60); GLUCOSE 190 mg/dl (70-220); MAGNESIUM 1.9 mg/dl (1.7-2.5); POTASSIUM 4.9 mmol/L (3.5-5.1); SODIUM 135 mmol/L (135-144)
[2018-11-26] MEDS: LACTOBACILLUS RHAMNOSUS CAP PO ×2 (08:03→20:42)
[2018-11-26] MEDS: CLOPIDOGREL 75 MG TAB PO (08:03)
[2018-11-26] MEDS: ASPIRIN 81 MG TAB PO (08:03)
[2018-11-26] MEDS: AMLODIPINE 10 MG TAB PO (08:03)
[2018-11-26] MEDS: METOPROLOL 25 MG TAB PO ×2 (08:04→20:44)
[2018-11-26] MEDS: INSULIN ASPART [NOVOLOG] 3 ML PEN SC ×7 (08:05→20:48)
[2018-11-26] MEDS: LISINOPRIL 5 MG TAB PO (08:10)
[2018-11-26] MEDS ORDERED: MIDAZOLAM 1 MG/ML 2 ML INJ (16:27)
[2018-11-26] MEDS ORDERED: FENTAnyl 50 MCG/ML VIAL (16:27)
[2018-11-26] MEDS ORDERED: FENTAnyl 50 MCG/ML VIAL IV (18:00)
[2018-11-26] MEDS ORDERED: ONDANSETRON 4 MG INJ IV (18:00)
[2018-11-26] MEDS ORDERED: DIPHENHYDRAMINE 50 MG INJ IV (18:00)
[2018-11-26] MEDS ORDERED: HYDROmorphONE 1 MG/5 ML IV SYRINGE IV ×2 (18:00)
[2018-11-26] MEDS: ATORVASTATIN 40 MG TAB PO (20:42)
[2018-11-26] MEDS: MONTELUKAST 10 MG TAB PO (20:42)
[2018-11-26] MEDS: SENNA/DOCUSATE NA (8.6MG/50MG) TAB PO (20:43)
[2018-11-26] MEDS: HYDROCODONE/APAP (5/325) TAB PO (20:59)
[2018-11-26] MEDS: POLYETHYLENE GLYCOL 17 GM PACKET PO (21:00)
[2018-11-26] MEDS: MAGNESIUM HYDROXIDE 30ML CUP PO (21:00)
[2018-11-26] MEDS: HYDROmorphONE 1 MG/ML SYG IV (21:59)
[2018-11-27] MEDS: LEVOFLOXACIN 250 MG TAB PO (05:37)
[2018-11-27] MEDS: AMPICILLIN 1 GM/NS (PMX) 50 ML IVPB ×3 (05:37→21:42)
[2018-11-27] MEDS: HEPARIN 5,000 UNIT/1 ML VIAL SC ×3 (05:39→21:11)
[2018-11-27 06:41] LABS: ADD MAN DIFF? NO
[2018-11-27 06:48] LABS: WHITE BLOOD COUNT 12.8 10^3/ul (4.8-10.8)
[2018-11-27 06:48] LABS: BASOPHILS % 0.3 % (0.0-2.0); EOSINOPHILS % 0.3 % (0.0-7.0); HEMATOCRIT 23.6 % (37.0-47.0); HEMOGLOBIN 7.2 g/dl (12.0-16.0); LYMPHOCYTES # 1.3 10^3/ul (0.8-2.9); LYMPHOCYTES % 10.4 % (15.0-51.0); MEAN CORPUSCULAR HEMOGLOBIN 27.2 pg (29.0-33.0); MEAN CORPUSCULAR HGB CONC 30.5 g/dl (32.0-37.0); MEAN CORPUSCULAR VOLUME 89.1 fl (82.0-101.0); MONOCYTE # 0.6 10^3/ul (0.3-0.9); MONOCYTES % 4.8 % (0.0-11.0); NEUTROPHIL # 10.7 10^3/ul (1.6-7.5); NEUTROPHILS % 83.7 % (39.0-77.0); PLATELET COUNT 328 10^3/UL (140-415); RED BLOOD COUNT 2.65 10^6/ul (4.20-5.40); RED CELL DISTRIBUTION WIDTH 14.6 % (11.5-14.5)
[2018-11-27 07:05] LABS: ANION GAP 6 (5-13); BLOOD UREA NITROGEN 28 mg/dl (7-20); CALCIUM 8.4 mg/dl (8.4-10.2); CARBON DIOXIDE 27 mmol/L (21-31); CHLORIDE 104 mmol/L (97-110); CREATININE 1.16 mg/dl (0.44-1.00); Estimated GFR 49 mL/min (>60); GLUCOSE 124 mg/dl (70-220); MAGNESIUM 1.8 mg/dl (1.7-2.5); POTASSIUM 4.7 mmol/L (3.5-5.1); SODIUM 137 mmol/L (135-144)
[2018-11-27] MEDS: INSULIN ASPART [NOVOLOG] 3 ML PEN SC ×7 (08:00→21:00)
[2018-11-27] MEDS: POLYETHYLENE GLYCOL 17 GM PACKET PO ×2 (08:01→21:42)
[2018-11-27] MEDS: MAGNESIUM HYDROXIDE 30ML CUP PO ×2 (08:01→21:08)
[2018-11-27] MEDS: ASPIRIN 81 MG TAB PO (08:01)
[2018-11-27] MEDS: LACTOBACILLUS RHAMNOSUS CAP PO ×2 (08:02→21:09)
[2018-11-27] MEDS: LISINOPRIL 5 MG TAB PO (08:02)
[2018-11-27] MEDS: CLOPIDOGREL 75 MG TAB PO (08:02)
[2018-11-27] MEDS: AMLODIPINE 10 MG TAB PO (08:03)
[2018-11-27] MEDS: METOPROLOL 25 MG TAB PO ×2 (08:03→21:10)
[2018-11-27] MEDS: HYDROCODONE/APAP (5/325) TAB PO ×2 (08:35→17:48)
[2018-11-27 09:01] LABS: IRON 19 ug/dl (35-150)
[2018-11-27 09:10] LABS: % IRON SATURATION 9 % SAT (22-52); TOTAL IRON BINDING CAPACITY 216 ug/dl (241-421)
[2018-11-27] MEDS: ONDANSETRON 4 MG INJ IV (12:24)
[2018-11-27] MEDS: SENNA/DOCUSATE NA (8.6MG/50MG) TAB PO (21:09)
[2018-11-27] MEDS: ATORVASTATIN 40 MG TAB PO (21:09)
[2018-11-27] MEDS: MONTELUKAST 10 MG TAB PO (21:10)
[2018-11-27] MEDS: INSULIN GLARGINE [LANTus] (100 UNITS/ML) SYG SC (21:18)
[2018-11-28] MEDS: AMPICILLIN 1 GM/NS (PMX) 50 ML IVPB ×3 (05:33→22:09)
[2018-11-28] MEDS: LEVOFLOXACIN 250 MG TAB PO (05:33)
[2018-11-28] MEDS: HEPARIN 5,000 UNIT/1 ML VIAL SC ×3 (05:44→22:15)
[2018-11-28 07:58] LABS: ADD MAN DIFF? NO
[2018-11-28] MEDS: INSULIN ASPART [NOVOLOG] 3 ML PEN SC ×7 (08:00→20:44)
[2018-11-28 08:02] LABS: WHITE BLOOD COUNT 9.3 10^3/ul (4.8-10.8)
[2018-11-28 08:02] LABS: ABNORMAL IP MESSAGE 1; BASOPHILS % 0.2 % (0.0-2.0); EOSINOPHILS # 0.1 10^3/ul (0.0-0.5); EOSINOPHILS % 0.6 % (0.0-7.0); HEMATOCRIT 20.6 % (37.0-47.0); LYMPHOCYTES # 1.3 10^3/ul (0.8-2.9); LYMPHOCYTES % 14.4 % (15.0-51.0); MEAN CORPUSCULAR HEMOGLOBIN 27.8 pg (29.0-33.0); MEAN CORPUSCULAR HGB CONC 31.6 g/dl (32.0-37.0); MONOCYTE # 0.5 10^3/ul (0.3-0.9); MONOCYTES % 5.4 % (0.0-11.0); NEUTROPHIL # 7.3 10^3/ul (1.6-7.5); PLATELET COUNT 267 10^3/UL (140-415); RED BLOOD COUNT 2.34 10^6/ul (4.20-5.40); RED CELL DISTRIBUTION WIDTH 14.7 % (11.5-14.5)
[2018-11-28 08:09] LABS: HEMOGLOBIN 6.5 g/dl (12.0-16.0); PATH REVIEW? YES; POSITIVE DIFF @See below
[2018-11-28 08:20] LABS: ANION GAP 4 (5-13); BLOOD UREA NITROGEN 27 mg/dl (7-20); CALCIUM 8.5 mg/dl (8.4-10.2); CARBON DIOXIDE 29 mmol/L (21-31); CHLORIDE 104 mmol/L (97-110); CREATININE 1.22 mg/dl (0.44-1.00); Estimated GFR 46 mL/min (>60); GLUCOSE 83 mg/dl (70-220); MAGNESIUM 1.9 mg/dl (1.7-2.5); POTASSIUM 5.2 mmol/L (3.5-5.1); SODIUM 137 mmol/L (135-144)
[2018-11-28] MEDS: DOCUSATE SODIUM 100 MG CAP PO (09:59)
[2018-11-28] MEDS: CLOPIDOGREL 75 MG TAB PO (09:59)
[2018-11-28] MEDS: AMLODIPINE 10 MG TAB PO (10:00)
[2018-11-28] MEDS: BISACODYL (EC) 5 MG TAB PO (10:00)
[2018-11-28] MEDS: METOPROLOL 25 MG TAB PO ×2 (10:00→20:43)
[2018-11-28] MEDS: LISINOPRIL 5 MG TAB PO (10:01)
[2018-11-28] MEDS: POLYETHYLENE GLYCOL 17 GM PACKET PO ×2 (10:01→20:44)
[2018-11-28] MEDS: ASPIRIN 81 MG TAB PO (10:01)
[2018-11-28] MEDS: LACTOBACILLUS RHAMNOSUS CAP PO ×2 (10:01→20:43)
[2018-11-28 10:07] LABS: ANISOCYTOSIS 1+ (0-0); BAND NEUTROPHILS % (M) 1 % (0-4); LYMPHOCYTES #M 1.6 10^3/ul (0.8-2.9); LYMPHOCYTES % (M) 18 % (15-51); MICROCYTOSIS 1+ (0-0); MONOCYTES % (M) 1 % (0-11); PLATELET ESTIMATE NORMAL; POIKILOCYTOSIS 1+ (0-0); POLYCHROMASIA 3+ (0-0); SEG NEUT #M 7.4 10^3/ul (1.6-7.5); SEGMENTED NEUTROPHILS (M) % 80 % (39-77); SMUDGE%M 2 % (0-0)
[2018-11-28 11:37] LABS: IMMEDIATE SPIN CROSSMATCH 1 4
[2018-11-28] MEDS: ATORVASTATIN 40 MG TAB PO (20:43)
[2018-11-28] MEDS: SENNA/DOCUSATE NA (8.6MG/50MG) TAB PO (20:43)
[2018-11-28] MEDS: MONTELUKAST 10 MG TAB PO (20:43)
[2018-11-28] MEDS: INSULIN GLARGINE [LANTus] (100 UNITS/ML) SYG SC (20:49)
[2018-11-29] MEDS: LEVOFLOXACIN 250 MG TAB PO (05:47)
[2018-11-29] MEDS: AMPICILLIN 1 GM/NS (PMX) 50 ML IVPB ×3 (05:47→22:33)
[2018-11-29] MEDS: HEPARIN 5,000 UNIT/1 ML VIAL SC (05:51)
[2018-11-29] MEDS: HYDROCODONE/APAP (5/325) TAB PO (05:54)
[2018-11-29 06:03] LABS: ADD MAN DIFF? NO
[2018-11-29 06:09] LABS: WHITE BLOOD COUNT 9.3 10^3/ul (4.8-10.8)
[2018-11-29 06:09] LABS: BASOPHILS % 0.2 % (0.0-2.0); EOSINOPHILS # 0.1 10^3/ul (0.0-0.5); EOSINOPHILS % 1.1 % (0.0-7.0); HEMATOCRIT 23.7 % (37.0-47.0); HEMOGLOBIN 7.5 g/dl (12.0-16.0); LYMPHOCYTES # 1.6 10^3/ul (0.8-2.9); LYMPHOCYTES % 17.6 % (15.0-51.0); MEAN CORPUSCULAR HEMOGLOBIN 27.9 pg (29.0-33.0); MEAN CORPUSCULAR HGB CONC 31.6 g/dl (32.0-37.0); MEAN CORPUSCULAR VOLUME 88.1 fl (82.0-101.0); MEAN PLATELET VOLUME 9.9 fl (7.4-10.4); MONOCYTE # 0.5 10^3/ul (0.3-0.9); MONOCYTES % 5.1 % (0.0-11.0); NEUTROPHILS % 75.6 % (39.0-77.0); PLATELET COUNT 227 10^3/UL (140-415); RED BLOOD COUNT 2.69 10^6/ul (4.20-5.40); RED CELL DISTRIBUTION WIDTH 14.9 % (11.5-14.5)
[2018-11-29 06:59] LABS: ALANINE AMINOTRANSFERASE 16 IU/L (13-69); ALBUMIN 2.4 g/dl (3.3-4.9); ALBUMIN/GLOBULIN RATIO 0.75; ALKALINE PHOSPHATASE 171 IU/L (42-121); ANION GAP 4 (5-13); ASPARTATE AMINO TRANSFERASE 20 IU/L (15-46); BILIRUBIN,INDIRECT 0.1 mg/dl (0-1.1); BILIRUBIN,TOTAL 0.1 mg/dl (0.2-1.3); BLOOD UREA NITROGEN 25 mg/dl (7-20); CALCIUM 8.1 mg/dl (8.4-10.2); CARBON DIOXIDE 29 mmol/L (21-31); CHLORIDE 103 mmol/L (97-110); CREATININE 1.09 mg/dl (0.44-1.00); Estimated GFR 52 mL/min (>60); GLUCOSE 100 mg/dl (70-220); POTASSIUM 5.1 mmol/L (3.5-5.1); SODIUM 136 mmol/L (135-144); TOTAL PROTEIN 5.6 g/dl (6.1-8.1)
[2018-11-29] MEDS: INSULIN ASPART [NOVOLOG] 3 ML PEN SC ×7 (08:00→20:23)
[2018-11-29] MEDS: AMLODIPINE 10 MG TAB PO (08:42)
[2018-11-29] MEDS: ASPIRIN 81 MG TAB PO (08:43)
[2018-11-29] MEDS: METOPROLOL 25 MG TAB PO ×2 (08:43→20:25)
[2018-11-29] MEDS: POLYETHYLENE GLYCOL 17 GM PACKET PO (08:43)
[2018-11-29] MEDS: LACTOBACILLUS RHAMNOSUS CAP PO ×2 (08:43→20:25)
[2018-11-29] MEDS: CLOPIDOGREL 75 MG TAB PO (08:48)
[2018-11-29] MEDS: LISINOPRIL 5 MG TAB PO (08:48)
[2018-11-29] MEDS: DOCUSATE SODIUM 100 MG CAP PO (12:16)
[2018-11-29] MEDS: BISACODYL (EC) 5 MG TAB PO (15:54)
[2018-11-29] MEDS: NA PHOSPHATE/BIPHOS 133 ML ENEMA PR (17:34)
[2018-11-29] MEDS: INSULIN GLARGINE [LANTus] (100 UNITS/ML) SYG SC (20:00)
[2018-11-29] MEDS: SENNA/DOCUSATE NA (8.6MG/50MG) TAB PO (20:24)
[2018-11-29] MEDS: ATORVASTATIN 40 MG TAB PO (20:25)
[2018-11-29] MEDS: MONTELUKAST 10 MG TAB PO (20:25)
[2018-11-29 22:09] LABS: ADD MAN DIFF? NO
[2018-11-29 22:12] LABS: BASOPHILS % 0.3 % (0.0-2.0); EOSINOPHILS % 0.4 % (0.0-7.0); HEMATOCRIT 29.4 % (37.0-47.0); HEMOGLOBIN 9.2 g/dl (12.0-16.0); LYMPHOCYTES # 1.5 10^3/ul (0.8-2.9); MEAN CORPUSCULAR HEMOGLOBIN 27.7 pg (29.0-33.0); MEAN CORPUSCULAR HGB CONC 31.3 g/dl (32.0-37.0); MEAN CORPUSCULAR VOLUME 88.6 fl (82.0-101.0); MEAN PLATELET VOLUME 10.7 fl (7.4-10.4); MONOCYTE # 0.4 10^3/ul (0.3-0.9); MONOCYTES % 3.8 % (0.0-11.0); NEUTROPHIL # 8.5 10^3/ul (1.6-7.5); NEUTROPHILS % 81.2 % (39.0-77.0); PLATELET COUNT 293 10^3/UL (140-415); RED BLOOD COUNT 3.32 10^6/ul (4.20-5.40); RED CELL DISTRIBUTION WIDTH 14.9 % (11.5-14.5)
[2018-11-29 22:12] LABS: WHITE BLOOD COUNT 10.4 10^3/ul (4.8-10.8)
[2018-11-29 22:19] LABS: INR 0.93; PROTIME 12.6 Sec (11.9-14.9)
[2018-11-29 22:20] LABS: PARTIAL THROMBOPLASTIN TIME 33.8 Sec (23.0-35.0)
[2018-11-29 22:23] LABS: CHOLESTEROL 136 mg/dl (100-200)
[2018-11-29 22:23] LABS: CHOL/HDL RATIO 2.8 RATIO; CREATINE KINASE 35 IU/L (23-200); HDL CHOLESTEROL 47 mg/dl (37-92); LDL CHOLESTEROL,CALCULATED 71 mg/dl; TRIGLYCERIDES 92 mg/dl (0-149)
[2018-11-29 22:26] LABS: HEMOGLOBIN A1C 7.1 % (0-5.9)
[2018-11-29 22:31] LABS: CK INDEX 3.4; CK-MB 1.19 ng/ml (0.0-2.4)
[2018-11-29 22:36] LABS: TROPONIN-I < 0.012 ng/ml (0.000-0.120)
[2018-11-29 23:03] LABS: ANION GAP 7 (5-13); BLOOD UREA NITROGEN 29 mg/dl (7-20); CALCIUM 8.9 mg/dl (8.4-10.2); CARBON DIOXIDE 25 mmol/L (21-31); CHLORIDE 104 mmol/L (97-110); CREATININE 1.25 mg/dl (0.44-1.00); Estimated GFR 44 mL/min (>60); GLUCOSE 90 mg/dl (70-220); POTASSIUM 5.2 mmol/L (3.5-5.1); SODIUM 136 mmol/L (135-144)
[2018-11-30] MEDS: BISACODYL 10 MG SUPP PR (00:22)
[2018-11-30] MEDS: HYDROCODONE/APAP (5/325) TAB PO (02:25)
[2018-11-30] MEDS: LEVOFLOXACIN 250 MG TAB PO (05:52)
[2018-11-30] MEDS: AMPICILLIN 1 GM/NS (PMX) 50 ML IVPB ×3 (06:00→20:17)
[2018-11-30 06:05] LABS: CHOLESTEROL 112 mg/dl (100-200)
[2018-11-30 06:05] LABS: CHOL/HDL RATIO 2.6 RATIO; HDL CHOLESTEROL 43 mg/dl (37-92); LDL CHOLESTEROL,CALCULATED 48 mg/dl; TRIGLYCERIDES 105 mg/dl (0-149)
[2018-11-30] MEDS: INSULIN ASPART [NOVOLOG] 3 ML PEN SC ×7 (07:52→20:31)
[2018-11-30] MEDS: ASPIRIN (EC) 81 MG TAB PO (08:23)
[2018-11-30] MEDS: LISINOPRIL 5 MG TAB PO (08:24)
[2018-11-30] MEDS: LACTOBACILLUS RHAMNOSUS CAP PO ×2 (08:24→20:18)
[2018-11-30] MEDS: CLOPIDOGREL 75 MG TAB PO (08:24)
[2018-11-30] MEDS: AMLODIPINE 10 MG TAB PO (08:24)
[2018-11-30] MEDS: METOPROLOL 25 MG TAB PO ×2 (08:25→20:19)
[2018-11-30] MEDS: ENOXAPARIN 30 MG/0.3 ML SYG SC (08:39)
[2018-11-30] MEDS: ATORVASTATIN 40 MG TAB PO (20:17)
[2018-11-30] MEDS: SENNA/DOCUSATE NA (8.6MG/50MG) TAB PO (20:18)
[2018-11-30] MEDS: MONTELUKAST 10 MG TAB PO (20:18)
[2018-11-30] MEDS: BUPROPION (SR) 150 MG TAB PO (20:19)
[2018-11-30] MEDS: INSULIN GLARGINE [LANTus] (100 UNITS/ML) SYG SC (20:31)
[2018-11-30 21:28] LABS: ERYTHROCYTE SEDIMENTATION RATE 49 mm/Hr (0-30)
[2018-11-30 22:04] LABS: C-REACTIVE PROTEIN 3.6 mg/dl (0.0-0.9)
[2018-12-01 05:39] LABS: ADD MAN DIFF? NO
[2018-12-01 05:50] LABS: WHITE BLOOD COUNT 6.9 10^3/ul (4.8-10.8)
[2018-12-01 05:50] LABS: BASOPHILS % 0.4 % (0.0-2.0); EOSINOPHILS # 0.1 10^3/ul (0.0-0.5); EOSINOPHILS % 1.3 % (0.0-7.0); HEMATOCRIT 22.9 % (37.0-47.0); HEMOGLOBIN 7.2 g/dl (12.0-16.0); LYMPHOCYTES # 1.7 10^3/ul (0.8-2.9); LYMPHOCYTES % 24.4 % (15.0-51.0); MEAN CORPUSCULAR HEMOGLOBIN 27.8 pg (29.0-33.0); MEAN CORPUSCULAR HGB CONC 31.4 g/dl (32.0-37.0); MEAN CORPUSCULAR VOLUME 88.4 fl (82.0-101.0); MEAN PLATELET VOLUME 10.4 fl (7.4-10.4); MONOCYTE # 0.4 10^3/ul (0.3-0.9); MONOCYTES % 5.1 % (0.0-11.0); NEUTROPHIL # 4.7 10^3/ul (1.6-7.5); NEUTROPHILS % 68.5 % (39.0-77.0); PLATELET COUNT 215 10^3/UL (140-415); RED BLOOD COUNT 2.59 10^6/ul (4.20-5.40); RED CELL DISTRIBUTION WIDTH 14.6 % (11.5-14.5)
[2018-12-01] MEDS: LEVOFLOXACIN 250 MG TAB PO (06:00)
[2018-12-01] MEDS: AMPICILLIN 1 GM/NS (PMX) 50 ML IVPB ×3 (06:15→21:22)
[2018-12-01 06:27] LABS: ANION GAP 5 (5-13); BLOOD UREA NITROGEN 27 mg/dl (7-20); CALCIUM 8.4 mg/dl (8.4-10.2); CARBON DIOXIDE 29 mmol/L (21-31); CHLORIDE 103 mmol/L (97-110); CREATININE 1.34 mg/dl (0.44-1.00); Estimated GFR 41 mL/min (>60); GLUCOSE 57 mg/dl (70-220); PHOSPHORUS 4.8 mg/dl (2.5-4.9); POTASSIUM 4.6 mmol/L (3.5-5.1); SODIUM 137 mmol/L (135-144)
[2018-12-01] MEDS: INSULIN ASPART [NOVOLOG] 3 ML PEN SC ×7 (08:00→20:39)
[2018-12-01] MEDS: BUPROPION (SR) 150 MG TAB PO ×2 (09:00→20:27)
[2018-12-01] MEDS: ENOXAPARIN 40 MG/0.4 ML SYG SC (09:00)
[2018-12-01] MEDS: ASPIRIN (EC) 81 MG TAB PO (09:10)
[2018-12-01] MEDS: AMLODIPINE 10 MG TAB PO (09:10)
[2018-12-01] MEDS: LACTOBACILLUS RHAMNOSUS CAP PO ×2 (09:10→20:27)
[2018-12-01] MEDS: CLOPIDOGREL 75 MG TAB PO (09:10)
[2018-12-01] MEDS: BENZONATATE 100 MG CAP PO (09:10)
[2018-12-01] MEDS: LISINOPRIL 5 MG TAB PO (09:11)
[2018-12-01] MEDS: METOPROLOL 25 MG TAB PO ×2 (09:11→20:28)
[2018-12-01] MEDS: SOD CHLORIDE 0.9% 250 ML IV* (10:06)
[2018-12-01] MEDS: ALTEPLASE (CATHFLO) 2 MG INJ CATHETER (13:14)
[2018-12-01] MEDS: hydrALAzine 20 MG INJ IV (17:17)
[2018-12-01] MEDS: ATORVASTATIN 40 MG TAB PO (20:27)
[2018-12-01] MEDS: SENNA/DOCUSATE NA (8.6MG/50MG) TAB PO (20:27)
[2018-12-01] MEDS: MONTELUKAST 10 MG TAB PO (20:27)
[2018-12-01] MEDS: INSULIN GLARGINE [LANTus] (100 UNITS/ML) SYG SC (20:39)
[2018-12-01 21:16] LABS: IMMEDIATE SPIN CROSSMATCH 1 3
[2018-12-02] MEDS: AMPICILLIN 1 GM/NS (PMX) 50 ML IVPB ×3 (05:17→21:54)
[2018-12-02 06:23] LABS: ANION GAP 10 (5-13); BLOOD UREA NITROGEN 27 mg/dl (7-20); CALCIUM 8.5 mg/dl (8.4-10.2); CARBON DIOXIDE 27 mmol/L (21-31); CHLORIDE 104 mmol/L (97-110); CREATININE 1.33 mg/dl (0.44-1.00); Estimated GFR 41 mL/min (>60); GLUCOSE 99 mg/dl (70-220); PHOSPHORUS 4.6 mg/dl (2.5-4.9); POTASSIUM 4.2 mmol/L (3.5-5.1); SODIUM 141 mmol/L (135-144)
[2018-12-02] MEDS: LEVOFLOXACIN 250 MG TAB PO (06:55)
[2018-12-02] MEDS: INSULIN ASPART [NOVOLOG] 3 ML PEN SC ×7 (07:43→20:22)
[2018-12-02] MEDS: BUPROPION (SR) 150 MG TAB PO ×2 (08:45→20:17)
[2018-12-02] MEDS: ENOXAPARIN 40 MG/0.4 ML SYG SC (08:47)
[2018-12-02] MEDS: AMLODIPINE 10 MG TAB PO (08:47)
[2018-12-02] MEDS: METOPROLOL 25 MG TAB PO ×2 (08:48→20:18)
[2018-12-02] MEDS: ASPIRIN (EC) 81 MG TAB PO (08:48)
[2018-12-02] MEDS: CLOPIDOGREL 75 MG TAB PO (08:48)
[2018-12-02] MEDS: LACTOBACILLUS RHAMNOSUS CAP PO ×2 (08:48→20:17)
[2018-12-02] MEDS: LISINOPRIL 5 MG TAB PO (08:49)
[2018-12-02] MEDS: SODIUM HYPOCHLORITE (1/40) 1 APPLIC BTL IRR (13:16)
[2018-12-02] MEDS: ATORVASTATIN 40 MG TAB PO (20:17)
[2018-12-02] MEDS: MONTELUKAST 10 MG TAB PO (20:17)
[2018-12-02] MEDS: SENNA/DOCUSATE NA (8.6MG/50MG) TAB PO (20:17)
[2018-12-02] MEDS: INSULIN GLARGINE [LANTus] (100 UNITS/ML) SYG SC (20:19)
[2018-12-03] MEDS: AMPICILLIN 1 GM/NS (PMX) 50 ML IVPB ×3 (05:12→20:52)
[2018-12-03] MEDS: LEVOFLOXACIN 250 MG TAB PO (06:24)
[2018-12-03 06:42] LABS: ANION GAP 9 (5-13); BLOOD UREA NITROGEN 27 mg/dl (7-20); CALCIUM 8.7 mg/dl (8.4-10.2); CARBON DIOXIDE 26 mmol/L (21-31); CHLORIDE 105 mmol/L (97-110); CREATININE 1.26 mg/dl (0.44-1.00); Estimated GFR 44 mL/min (>60); GLUCOSE 95 mg/dl (70-220); POTASSIUM 3.9 mmol/L (3.5-5.1); SODIUM 140 mmol/L (135-144)
[2018-12-03] MEDS: INSULIN ASPART [NOVOLOG] 3 ML PEN SC ×7 (08:00→20:03)
[2018-12-03 08:41] LABS: ADD UMIC YES; UR ASCORBIC ACID NEGATIVE (NEGATIVE); UR BACTERIA FEW /HPF (NONE SEEN); UR BILIRUBIN (Dip) NEGATIVE (NEGATIVE); UR BLOOD (Dip) NEGATIVE (NEGATIVE); UR BUDDING YEAST MANY /HPF (NONE SEEN); UR CLARITY SLIGHTLY CLOUDY (CLEAR); UR COLOR YELLOW (YELLOW); UR GLUCOSE (Dip) NEGATIVE (NEGATIVE); UR KETONES (Dip) NEGATIVE (NEGATIVE); UR LEUKOCYTE ESTERASE (Dip) TRACE Leu/ul (NEGATIVE); UR NITRITE (Dip) NEGATIVE (NEGATIVE); UR RBC 8 /HPF (0-5); UR SPECIFIC GRAVITY (Dip) 1.014 (1.003-1.030); UR SQUAMOUS EPITHELIAL CELL FEW /HPF (FEW); UR TOTAL PROTEIN (Dip) 2+ mg/dl (NEGATIVE); UR UROBILINOGEN (Dip) NEGATIVE (NEGATIVE); UR WBC 18 /HPF (0-5)
[2018-12-03] MEDS: CLOPIDOGREL 75 MG TAB PO (08:58)
[2018-12-03] MEDS: AMLODIPINE 10 MG TAB PO (08:58)
[2018-12-03 08:59] LABS: AMPHETAMINE/METHAMPHETAMINE Negative (NEGATIVE); BARBITURATES Negative (NEGATIVE); BENZODIAZEPINES Negative (NEGATIVE); CANNABINOIDS Negative (NEGATIVE); COCAINE Negative (NEGATIVE)
[2018-12-03] MEDS: LACTOBACILLUS RHAMNOSUS CAP PO ×2 (08:59→20:01)
[2018-12-03] MEDS: LISINOPRIL 5 MG TAB PO (08:59)
[2018-12-03] MEDS: METOPROLOL 25 MG TAB PO ×2 (09:01→20:02)
[2018-12-03] MEDS: ASPIRIN (EC) 81 MG TAB PO (09:01)
[2018-12-03] MEDS: BUPROPION (SR) 150 MG TAB PO ×2 (09:01→20:01)
[2018-12-03] MEDS: ENOXAPARIN 40 MG/0.4 ML SYG SC (09:05)
[2018-12-03 09:13] LABS: OPIATES Positive (NEGATIVE)
[2018-12-03] MEDS: SODIUM HYPOCHLORITE (1/40) 1 APPLIC BTL IRR (13:35)
[2018-12-03] MEDS: BISACODYL 10 MG SUPP PR (13:37)
[2018-12-03] MEDS: DEXTROSE 50% 50 ML SYRINGE IV (14:42)
[2018-12-03] MEDS: SOD CHLORIDE 0.9% 250 ML IV* (15:05)
[2018-12-03] MEDS: HYDROCODONE/APAP (5/325) TAB PO (16:34)
[2018-12-03] MEDS: ATORVASTATIN 40 MG TAB PO (20:01)
[2018-12-03] MEDS: MONTELUKAST 10 MG TAB PO (20:01)
[2018-12-03] MEDS: SENNA/DOCUSATE NA (8.6MG/50MG) TAB PO (20:03)
[2018-12-03] MEDS: INSULIN GLARGINE [LANTus] (100 UNITS/ML) SYG SC (20:09)
[2018-12-04] MEDS: AMPICILLIN 1 GM/NS (PMX) 50 ML IVPB ×3 (05:25→20:54)
[2018-12-04] MEDS: HYDROCODONE/APAP (5/325) TAB PO (05:43)
[2018-12-04] MEDS: LEVOFLOXACIN 250 MG TAB PO (06:21)
[2018-12-04 06:49] LABS: OCCULT BLOOD STOOL NEGATIVE (NEGATIVE)
[2018-12-04 06:51] LABS: ANION GAP 7 (5-13); BLOOD UREA NITROGEN 26 mg/dl (7-20); CALCIUM 8.6 mg/dl (8.4-10.2); CARBON DIOXIDE 27 mmol/L (21-31); CHLORIDE 106 mmol/L (97-110); CREATININE 1.15 mg/dl (0.44-1.00); Estimated GFR 49 mL/min (>60); GLUCOSE 72 mg/dl (70-220); MAGNESIUM 2.1 mg/dl (1.7-2.5); PHOSPHORUS 4.6 mg/dl (2.5-4.9); POTASSIUM 4.8 mmol/L (3.5-5.1); SODIUM 140 mmol/L (135-144)
[2018-12-04] MEDS: INSULIN ASPART [NOVOLOG] 3 ML PEN SC ×7 (07:54→20:46)
[2018-12-04] MEDS: LACTOBACILLUS RHAMNOSUS CAP PO ×2 (08:38→20:37)
[2018-12-04] MEDS: CLOPIDOGREL 75 MG TAB PO (08:39)
[2018-12-04] MEDS: ASPIRIN (EC) 81 MG TAB PO (08:39)
[2018-12-04] MEDS: BUPROPION (SR) 150 MG TAB PO ×2 (08:39→20:36)
[2018-12-04] MEDS: METOPROLOL 25 MG TAB PO ×2 (08:40→20:37)
[2018-12-04] MEDS: AMLODIPINE 10 MG TAB PO (08:40)
[2018-12-04] MEDS: LISINOPRIL 5 MG TAB PO (08:41)
[2018-12-04] MEDS: SODIUM HYPOCHLORITE (1/40) 1 APPLIC BTL IRR (08:43)
[2018-12-04] MEDS: ENOXAPARIN 40 MG/0.4 ML SYG SC (08:46)
[2018-12-04] MEDS: COLLAGENASE 5 GM (UD JAR) TOP (15:51)
[2018-12-04 16:35] LABS: C-REACTIVE PROTEIN 2.7 mg/dl (0.0-0.9)
[2018-12-04 17:15] LABS: ERYTHROCYTE SEDIMENTATION RATE 68 mm/Hr (0-30)
[2018-12-04] MEDS: MONTELUKAST 10 MG TAB PO (20:36)
[2018-12-04] MEDS: SENNA/DOCUSATE NA (8.6MG/50MG) TAB PO (20:36)
[2018-12-04] MEDS: ATORVASTATIN 40 MG TAB PO (20:37)
[2018-12-04] MEDS: INSULIN GLARGINE [LANTus] (100 UNITS/ML) SYG SC (20:45)
[2018-12-04] MEDS: BENZONATATE 100 MG CAP PO (23:16)
[2018-12-05] MEDS: HYDROCODONE/APAP (5/325) TAB PO ×3 (00:07→23:47)
[2018-12-05] MEDS: LORAZEPAM 2 MG INJ IV ×2 (01:01→23:30)
[2018-12-05] MEDS: ALBUTEROL/IPRATROPIUM (NEB) 3 ML AMP NEB (01:14)
[2018-12-05] MEDS: ONDANSETRON 4 MG INJ IV (01:30)
[2018-12-05] MEDS: AMPICILLIN 1 GM/NS (PMX) 50 ML IVPB ×3 (05:13→21:47)
[2018-12-05] MEDS: LEVOFLOXACIN 250 MG TAB PO (06:01)
[2018-12-05] MEDS: ASPIRIN (EC) 81 MG TAB PO (07:59)
[2018-12-05] MEDS: BUPROPION (SR) 150 MG TAB PO ×2 (07:59→20:59)
[2018-12-05] MEDS: LACTOBACILLUS RHAMNOSUS CAP PO ×2 (07:59→20:59)
[2018-12-05] MEDS: CLOPIDOGREL 75 MG TAB PO (08:00)
[2018-12-05] MEDS: INSULIN ASPART [NOVOLOG] 3 ML PEN SC ×7 (08:00→21:00)
[2018-12-05] MEDS: LISINOPRIL 5 MG TAB PO (08:02)
[2018-12-05] MEDS: AMLODIPINE 10 MG TAB PO (08:02)
[2018-12-05] MEDS: METOPROLOL 25 MG TAB PO ×2 (08:06→21:00)
[2018-12-05] MEDS: ENOXAPARIN 40 MG/0.4 ML SYG SC (08:19)
[2018-12-05 10:37] LABS: ADD MAN DIFF? NO
[2018-12-05 10:39] LABS: BASOPHILS % 0.4 % (0.0-2.0); EOSINOPHILS # 0.1 10^3/ul (0.0-0.5); EOSINOPHILS % 1.9 % (0.0-7.0); HEMATOCRIT 30.7 % (37.0-47.0); HEMOGLOBIN 9.6 g/dl (12.0-16.0); LYMPHOCYTES # 1.1 10^3/ul (0.8-2.9); LYMPHOCYTES % 15.2 % (15.0-51.0); MEAN CORPUSCULAR HEMOGLOBIN 28.6 pg (29.0-33.0); MEAN CORPUSCULAR HGB CONC 31.3 g/dl (32.0-37.0); MEAN CORPUSCULAR VOLUME 91.4 fl (82.0-101.0); MEAN PLATELET VOLUME 10.5 fl (7.4-10.4); MONOCYTE # 0.5 10^3/ul (0.3-0.9); MONOCYTES % 6.8 % (0.0-11.0); NEUTROPHIL # 5.3 10^3/ul (1.6-7.5); NEUTROPHILS % 75.4 % (39.0-77.0); PLATELET COUNT 222 10^3/UL (140-415); RED BLOOD COUNT 3.36 10^6/ul (4.20-5.40); RED CELL DISTRIBUTION WIDTH 14.9 % (11.5-14.5)
[2018-12-05 10:56] LABS: ALANINE AMINOTRANSFERASE 32 IU/L (13-69); ALBUMIN 2.9 g/dl (3.3-4.9); ALBUMIN/GLOBULIN RATIO 0.78; ALKALINE PHOSPHATASE 326 IU/L (42-121); ANION GAP 10 (5-13); ASPARTATE AMINO TRANSFERASE 26 IU/L (15-46); BILIRUBIN,INDIRECT 0.2 mg/dl (0-1.1); BILIRUBIN,TOTAL 0.2 mg/dl (0.2-1.3); BLOOD UREA NITROGEN 29 mg/dl (7-20); CALCIUM 8.8 mg/dl (8.4-10.2); CARBON DIOXIDE 29 mmol/L (21-31); CHLORIDE 102 mmol/L (97-110); CREATININE 1.32 mg/dl (0.44-1.00); Estimated GFR 42 mL/min (>60); GLUCOSE 88 mg/dl (70-220); POTASSIUM 4.8 mmol/L (3.5-5.1); SODIUM 141 mmol/L (135-144); TOTAL PROTEIN 6.6 g/dl (6.1-8.1)
[2018-12-05] MEDS ORDERED: CEPASTAT LOZENGE MT (11:00)
[2018-12-05] MEDS: SODIUM HYPOCHLORITE (1/40) 1 APPLIC BTL IRR (12:28)
[2018-12-05] MEDS: COLLAGENASE 5 GM (UD JAR) TOP (12:28)
[2018-12-05] MEDS: ATORVASTATIN 40 MG TAB PO (20:59)
[2018-12-05] MEDS: SENNA/DOCUSATE NA (8.6MG/50MG) TAB PO (20:59)
[2018-12-05] MEDS: MONTELUKAST 10 MG TAB PO (21:08)
[2018-12-05] MEDS: INSULIN GLARGINE [LANTus] (100 UNITS/ML) SYG SC (21:14)
[2018-12-06] MEDS: LEVOFLOXACIN 250 MG TAB PO (05:31)
[2018-12-06] MEDS: AMPICILLIN 1 GM/NS (PMX) 50 ML IVPB ×3 (05:31→21:43)
[2018-12-06] MEDS: INSULIN ASPART [NOVOLOG] 3 ML PEN SC ×6 (08:00→20:20)
[2018-12-06] MEDS: CLOPIDOGREL 75 MG TAB PO (08:52)
[2018-12-06] MEDS: ASPIRIN (EC) 81 MG TAB PO (08:52)
[2018-12-06] MEDS: BUPROPION (SR) 150 MG TAB PO ×2 (08:52→20:24)
[2018-12-06] MEDS: AMLODIPINE 10 MG TAB PO (08:53)
[2018-12-06] MEDS: LISINOPRIL 5 MG TAB PO (08:56)
[2018-12-06] MEDS: LACTOBACILLUS RHAMNOSUS CAP PO ×2 (08:57→20:23)
[2018-12-06] MEDS: METOPROLOL 25 MG TAB PO ×2 (08:57→20:23)
[2018-12-06] MEDS: COLLAGENASE 5 GM (UD JAR) TOP (09:00)
[2018-12-06] MEDS: SODIUM HYPOCHLORITE (1/40) 1 APPLIC BTL IRR (09:00)
[2018-12-06] MEDS: ENOXAPARIN 40 MG/0.4 ML SYG SC (09:03)
[2018-12-06 10:25] LABS: ADD MAN DIFF? NO
[2018-12-06 10:27] LABS: BASOPHILS % 0.3 % (0.0-2.0); EOSINOPHILS % 0.2 % (0.0-7.0); HEMATOCRIT 29.6 % (37.0-47.0); HEMOGLOBIN 9.3 g/dl (12.0-16.0); LYMPHOCYTES % 17.8 % (15.0-51.0); MEAN CORPUSCULAR HEMOGLOBIN 28.5 pg (29.0-33.0); MEAN CORPUSCULAR HGB CONC 31.4 g/dl (32.0-37.0); MEAN CORPUSCULAR VOLUME 90.8 fl (82.0-101.0); MEAN PLATELET VOLUME 10.8 fl (7.4-10.4); MONOCYTE # 0.3 10^3/ul (0.3-0.9); MONOCYTES % 5.7 % (0.0-11.0); NEUTROPHIL # 4.4 10^3/ul (1.6-7.5); NEUTROPHILS % 75.7 % (39.0-77.0); PLATELET COUNT 220 10^3/UL (140-415); RED BLOOD COUNT 3.26 10^6/ul (4.20-5.40); RED CELL DISTRIBUTION WIDTH 14.9 % (11.5-14.5)
[2018-12-06 10:27] LABS: WHITE BLOOD COUNT 5.8 10^3/ul (4.8-10.8)
[2018-12-06 10:50] LABS: ANION GAP 10 (5-13); BLOOD UREA NITROGEN 40 mg/dl (7-20); CALCIUM 8.8 mg/dl (8.4-10.2); CARBON DIOXIDE 26 mmol/L (21-31); CHLORIDE 104 mmol/L (97-110); CREATININE 1.39 mg/dl (0.44-1.00); Estimated GFR 39 mL/min (>60); GLUCOSE 139 mg/dl (70-220); MAGNESIUM 2.1 mg/dl (1.7-2.5); POTASSIUM 5.6 mmol/L (3.5-5.1); SODIUM 140 mmol/L (135-144)
[2018-12-06] MEDS: SENNA/DOCUSATE NA (8.6MG/50MG) TAB PO (20:21)
[2018-12-06] MEDS: MONTELUKAST 10 MG TAB PO (20:23)
[2018-12-06] MEDS: ATORVASTATIN 40 MG TAB PO (20:24)
[2018-12-06] MEDS: INSULIN GLARGINE [LANTus] (100 UNITS/ML) SYG SC (20:29)
[2018-12-07] MEDS: ALBUTEROL/IPRATROPIUM (NEB) 3 ML AMP NEB (00:07)
[2018-12-07] MEDS: LEVOFLOXACIN 250 MG TAB PO (05:16)
[2018-12-07] MEDS: AMPICILLIN 1 GM/NS (PMX) 50 ML IVPB ×3 (05:17→21:45)
[2018-12-07] MEDS: LORAZEPAM 2 MG INJ IV (05:19)
[2018-12-07] MEDS: INSULIN ASPART [NOVOLOG] 3 ML PEN SC ×7 (08:00→21:17)
[2018-12-07] MEDS: SODIUM HYPOCHLORITE (1/40) 1 APPLIC BTL IRR (08:22)
[2018-12-07] MEDS: BUPROPION (SR) 150 MG TAB PO ×2 (08:22→20:55)
[2018-12-07] MEDS: LACTOBACILLUS RHAMNOSUS CAP PO ×2 (08:22→20:55)
[2018-12-07] MEDS: METOPROLOL 25 MG TAB PO (08:22)
[2018-12-07] MEDS: ASPIRIN (EC) 81 MG TAB PO (08:22)
[2018-12-07] MEDS: AMLODIPINE 10 MG TAB PO (08:22)
[2018-12-07] MEDS: CLOPIDOGREL 75 MG TAB PO (08:22)
[2018-12-07] MEDS: COLLAGENASE 5 GM (UD JAR) TOP (08:23)
[2018-12-07] MEDS: LISINOPRIL 5 MG TAB PO (08:23)
[2018-12-07] MEDS: ENOXAPARIN 40 MG/0.4 ML SYG SC (08:24)
[2018-12-07 09:49] LABS: ADD MAN DIFF? NO
[2018-12-07 09:52] LABS: WHITE BLOOD COUNT 5.5 10^3/ul (4.8-10.8)
[2018-12-07 09:52] LABS: BASOPHILS % 0.4 % (0.0-2.0); EOSINOPHILS % 0.7 % (0.0-7.0); HEMATOCRIT 33.5 % (37.0-47.0); HEMOGLOBIN 10.5 g/dl (12.0-16.0); LYMPHOCYTES # 1.2 10^3/ul (0.8-2.9); LYMPHOCYTES % 21.9 % (15.0-51.0); MEAN CORPUSCULAR HEMOGLOBIN 28.7 pg (29.0-33.0); MEAN CORPUSCULAR HGB CONC 31.3 g/dl (32.0-37.0); MEAN CORPUSCULAR VOLUME 91.5 fl (82.0-101.0); MEAN PLATELET VOLUME 10.7 fl (7.4-10.4); MONOCYTE # 0.4 10^3/ul (0.3-0.9); MONOCYTES % 7.3 % (0.0-11.0); NEUTROPHIL # 3.8 10^3/ul (1.6-7.5); NEUTROPHILS % 69.3 % (39.0-77.0); PLATELET COUNT 251 10^3/UL (140-415); RED BLOOD COUNT 3.66 10^6/ul (4.20-5.40); RED CELL DISTRIBUTION WIDTH 14.6 % (11.5-14.5)
[2018-12-07 10:13] LABS: ANION GAP 7 (5-13); BLOOD UREA NITROGEN 41 mg/dl (7-20); CALCIUM 9.2 mg/dl (8.4-10.2); CARBON DIOXIDE 28 mmol/L (21-31); CHLORIDE 107 mmol/L (97-110); CREATININE 1.38 mg/dl (0.44-1.00); Estimated GFR 40 mL/min (>60); GLUCOSE 169 mg/dl (70-220); POTASSIUM 4.7 mmol/L (3.5-5.1); SODIUM 142 mmol/L (135-144)
[2018-12-07 10:52] LABS: PHOSPHORUS 4.6 mg/dl (2.5-4.9)
[2018-12-07 10:52] LABS: MAGNESIUM 2.3 mg/dl (1.7-2.5)
[2018-12-07] MEDS: INSULIN GLARGINE [LANTus] (100 UNITS/ML) SYG SC (20:00)
[2018-12-07] MEDS: MONTELUKAST 10 MG TAB PO (20:54)
[2018-12-07] MEDS: ATORVASTATIN 40 MG TAB PO (20:54)
[2018-12-07] MEDS: SENNA/DOCUSATE NA (8.6MG/50MG) TAB PO (20:55)
[2018-12-07] MEDS: HYDROCODONE/APAP (5/325) TAB PO (23:48)
[2018-12-08] MEDS: AMPICILLIN 1 GM/NS (PMX) 50 ML IVPB ×3 (05:38→22:04)
[2018-12-08] MEDS: LEVOFLOXACIN 250 MG TAB PO (05:38)
[2018-12-08 06:42] LABS: ANION GAP 8 (5-13); BLOOD UREA NITROGEN 35 mg/dl (7-20); CALCIUM 8.7 mg/dl (8.4-10.2); CARBON DIOXIDE 30 mmol/L (21-31); CHLORIDE 105 mmol/L (97-110); CREATININE 1.19 mg/dl (0.44-1.00); Estimated GFR 47 mL/min (>60); GLUCOSE 106 mg/dl (70-220); MAGNESIUM 2.1 mg/dl (1.7-2.5); PHOSPHORUS 4.2 mg/dl (2.5-4.9); POTASSIUM 4.9 mmol/L (3.5-5.1); SODIUM 143 mmol/L (135-144)
[2018-12-08] MEDS: BENZONATATE 100 MG CAP PO (07:41)
[2018-12-08] MEDS: HYDROCODONE/APAP (5/325) TAB PO ×2 (07:42→17:50)
[2018-12-08] MEDS: BISACODYL (EC) 5 MG TAB PO (07:42)
[2018-12-08] MEDS: BISACODYL 10 MG SUPP PR (07:42)
[2018-12-08] MEDS: INSULIN ASPART [NOVOLOG] 3 ML PEN SC ×7 (07:47→21:00)
[2018-12-08] MEDS: COLLAGENASE 5 GM (UD JAR) TOP (09:18)
[2018-12-08] MEDS: LACTOBACILLUS RHAMNOSUS CAP PO ×2 (09:19→22:00)
[2018-12-08] MEDS: ASPIRIN (EC) 81 MG TAB PO (09:19)
[2018-12-08] MEDS: AMLODIPINE 10 MG TAB PO (09:19)
[2018-12-08] MEDS: BUPROPION (SR) 150 MG TAB PO ×2 (09:19→22:00)
[2018-12-08] MEDS: LISINOPRIL 20 MG TAB PO (09:20)
[2018-12-08] MEDS: SODIUM HYPOCHLORITE (1/40) 1 APPLIC BTL IRR (09:20)
[2018-12-08] MEDS: CLOPIDOGREL 75 MG TAB PO (09:20)
[2018-12-08] MEDS: ENOXAPARIN 30 MG/0.3 ML SYG SC (09:26)
[2018-12-08] MEDS: ONDANSETRON 4 MG INJ IV ×2 (11:56→17:50)
[2018-12-08] MEDS: MAGNESIUM HYDROXIDE 30ML CUP PO (13:53)
[2018-12-08] MEDS: POLYETHYLENE GLYCOL 17 GM PACKET PO ×2 (13:55→22:03)
[2018-12-08] MEDS: INSULIN GLARGINE [LANTus] (100 UNITS/ML) SYG SC (21:00)
[2018-12-08] MEDS: ATORVASTATIN 40 MG TAB PO (21:59)
[2018-12-08] MEDS: MONTELUKAST 10 MG TAB PO (22:00)
[2018-12-08] MEDS: SENNA/DOCUSATE NA (8.6MG/50MG) TAB PO (22:00)
[2018-12-09] MEDS: AMPICILLIN 1 GM/NS (PMX) 50 ML IVPB ×3 (05:36→22:06)
[2018-12-09] MEDS: LEVOFLOXACIN 250 MG TAB PO (05:45)
[2018-12-09 05:53] LABS: ADD MAN DIFF? NO
[2018-12-09 06:24] LABS: WHITE BLOOD COUNT 5.4 10^3/ul (4.8-10.8)
[2018-12-09 06:24] LABS: BASOPHILS % 0.2 % (0.0-2.0); EOSINOPHILS # 0.1 10^3/ul (0.0-0.5); EOSINOPHILS % 1.9 % (0.0-7.0); HEMATOCRIT 29.8 % (37.0-47.0); HEMOGLOBIN 9.3 g/dl (12.0-16.0); LYMPHOCYTES # 0.7 10^3/ul (0.8-2.9); LYMPHOCYTES % 13.8 % (15.0-51.0); MEAN CORPUSCULAR HEMOGLOBIN 28.5 pg (29.0-33.0); MEAN CORPUSCULAR HGB CONC 31.2 g/dl (32.0-37.0); MEAN CORPUSCULAR VOLUME 91.4 fl (82.0-101.0); MEAN PLATELET VOLUME 10.7 fl (7.4-10.4); MONOCYTE # 0.4 10^3/ul (0.3-0.9); MONOCYTES % 7.2 % (0.0-11.0); NEUTROPHIL # 4.1 10^3/ul (1.6-7.5); NEUTROPHILS % 76.5 % (39.0-77.0); PLATELET COUNT 254 10^3/UL (140-415); RED BLOOD COUNT 3.26 10^6/ul (4.20-5.40); RED CELL DISTRIBUTION WIDTH 14.3 % (11.5-14.5)
[2018-12-09 06:39] LABS: LIPASE 31 U/L (23-300)
[2018-12-09 06:41] LABS: ALANINE AMINOTRANSFERASE 25 IU/L (13-69); ALBUMIN 2.6 g/dl (3.3-4.9); ALBUMIN/GLOBULIN RATIO 0.74; ALKALINE PHOSPHATASE 371 IU/L (42-121); ANION GAP 8 (5-13); ASPARTATE AMINO TRANSFERASE 18 IU/L (15-46); BLOOD UREA NITROGEN 26 mg/dl (7-20); CALCIUM 8.7 mg/dl (8.4-10.2); CARBON DIOXIDE 32 mmol/L (21-31); CHLORIDE 105 mmol/L (97-110); CREATININE 1.13 mg/dl (0.44-1.00); Estimated GFR 50 mL/min (>60); GLUCOSE 56 mg/dl (70-220); POTASSIUM 4.7 mmol/L (3.5-5.1); SODIUM 145 mmol/L (135-144); TOTAL PROTEIN 6.1 g/dl (6.1-8.1)
[2018-12-09] MEDS: hydrALAzine 20 MG INJ IV (07:51)
[2018-12-09] MEDS: HYDROCODONE/APAP (5/325) TAB PO (07:55)
[2018-12-09] MEDS: INSULIN ASPART [NOVOLOG] 3 ML PEN SC ×7 (07:58→20:31)
[2018-12-09] MEDS: LACTOBACILLUS RHAMNOSUS CAP PO ×2 (08:59→20:46)
[2018-12-09] MEDS: BUPROPION (SR) 150 MG TAB PO ×2 (08:59→20:46)
[2018-12-09] MEDS: AMLODIPINE 10 MG TAB PO (09:00)
[2018-12-09] MEDS: COLLAGENASE 5 GM (UD JAR) TOP (09:00)
[2018-12-09] MEDS: ASPIRIN (EC) 81 MG TAB PO (09:00)
[2018-12-09] MEDS: POLYETHYLENE GLYCOL 17 GM PACKET PO ×2 (09:00→20:52)
[2018-12-09] MEDS: LISINOPRIL 20 MG TAB PO ×2 (09:01→20:48)
[2018-12-09] MEDS: CLOPIDOGREL 75 MG TAB PO (09:01)
[2018-12-09] MEDS: ENOXAPARIN 30 MG/0.3 ML SYG SC (09:13)
[2018-12-09] MEDS: SODIUM HYPOCHLORITE (1/40) 1 APPLIC BTL IRR (11:51)
[2018-12-09] MEDS ORDERED: hydrALAzine 20 MG INJ IV (16:30)
[2018-12-09] MEDS: INSULIN GLARGINE [LANTus] (100 UNITS/ML) SYG SC (20:30)
[2018-12-09] MEDS: ATORVASTATIN 40 MG TAB PO (20:46)
[2018-12-09] MEDS: SENNA/DOCUSATE NA (8.6MG/50MG) TAB PO (20:46)
[2018-12-09] MEDS: MONTELUKAST 10 MG TAB PO (20:47)
[2018-12-10] MEDS: ONDANSETRON 4 MG INJ IV ×3 (00:54→16:37)
[2018-12-10] MEDS: HYDROCODONE/APAP (5/325) TAB PO (03:26)
[2018-12-10] MEDS: LEVOFLOXACIN 250 MG TAB PO (06:06)
[2018-12-10] MEDS: AMPICILLIN 1 GM/NS (PMX) 50 ML IVPB ×3 (06:06→21:06)
[2018-12-10] MEDS: INSULIN ASPART [NOVOLOG] 3 ML PEN SC ×7 (08:00→21:00)
[2018-12-10] MEDS: LACTOBACILLUS RHAMNOSUS CAP PO ×2 (08:29→21:07)
[2018-12-10] MEDS: CLOPIDOGREL 75 MG TAB PO (08:29)
[2018-12-10] MEDS: BUPROPION (SR) 150 MG TAB PO ×2 (08:30→21:08)
[2018-12-10] MEDS: ASPIRIN (EC) 81 MG TAB PO (08:30)
[2018-12-10] MEDS: COLLAGENASE 5 GM (UD JAR) TOP (08:31)
[2018-12-10] MEDS: AMLODIPINE 10 MG TAB PO (08:31)
[2018-12-10] MEDS: POLYETHYLENE GLYCOL 17 GM PACKET PO ×2 (08:34→21:07)
[2018-12-10] MEDS: LISINOPRIL 20 MG TAB PO ×2 (08:34→21:08)
[2018-12-10] MEDS: ENOXAPARIN 30 MG/0.3 ML SYG SC (09:19)
[2018-12-10] MEDS: SODIUM HYPOCHLORITE (1/40) 1 APPLIC BTL IRR (09:19)
[2018-12-10] MEDS: FAMOTIDINE 20 MG TAB PO (13:05)
[2018-12-10] MEDS: BISACODYL 10 MG SUPP PR (16:37)
[2018-12-10] MEDS: ATORVASTATIN 40 MG TAB PO (21:08)
[2018-12-10] MEDS: SENNA/DOCUSATE NA (8.6MG/50MG) TAB PO (21:08)
[2018-12-10] MEDS: MONTELUKAST 10 MG TAB PO (21:08)
[2018-12-10] MEDS: INSULIN GLARGINE [LANTus] (100 UNITS/ML) SYG SC (21:20)
[2018-12-11] MEDS: HYDROCODONE/APAP (5/325) TAB PO (04:15)
[2018-12-11] MEDS: ONDANSETRON 4 MG INJ IV (04:27)
[2018-12-11] MEDS: hydrALAzine 20 MG INJ IV (04:28)
[2018-12-11] MEDS: LEVOFLOXACIN 250 MG TAB PO (05:49)
[2018-12-11] MEDS: AMPICILLIN 1 GM/NS (PMX) 50 ML IVPB ×2 (05:50→13:10)
[2018-12-11 06:02] LABS: ADD MAN DIFF? NO
[2018-12-11 06:14] LABS: WHITE BLOOD COUNT 4.3 10^3/ul (4.8-10.8)
[2018-12-11 06:14] LABS: BASOPHILS % 0.7 % (0.0-2.0); EOSINOPHILS # 0.1 10^3/ul (0.0-0.5); EOSINOPHILS % 1.6 % (0.0-7.0); HEMATOCRIT 28.9 % (37.0-47.0); LYMPHOCYTES % 22.4 % (15.0-51.0); MEAN CORPUSCULAR HEMOGLOBIN 28.4 pg (29.0-33.0); MEAN CORPUSCULAR HGB CONC 31.1 g/dl (32.0-37.0); MEAN CORPUSCULAR VOLUME 91.2 fl (82.0-101.0); MEAN PLATELET VOLUME 10.3 fl (7.4-10.4); MONOCYTE # 0.4 10^3/ul (0.3-0.9); NEUTROPHIL # 2.9 10^3/ul (1.6-7.5); NEUTROPHILS % 66.1 % (39.0-77.0); PLATELET COUNT 237 10^3/UL (140-415); RED BLOOD COUNT 3.17 10^6/ul (4.20-5.40); RED CELL DISTRIBUTION WIDTH 14.2 % (11.5-14.5)
[2018-12-11 06:28] LABS: ANION GAP 7 (5-13); BLOOD UREA NITROGEN 19 mg/dl (7-20); CALCIUM 8.5 mg/dl (8.4-10.2); CARBON DIOXIDE 30 mmol/L (21-31); CHLORIDE 107 mmol/L (97-110); CREATININE 1.18 mg/dl (0.44-1.00); Estimated GFR 48 mL/min (>60); GLUCOSE 59 mg/dl (70-220); PHOSPHORUS 4.7 mg/dl (2.5-4.9); POTASSIUM 4.5 mmol/L (3.5-5.1); SODIUM 144 mmol/L (135-144)
[2018-12-11] MEDS: INSULIN ASPART [NOVOLOG] 3 ML PEN SC ×4 (08:00→12:05)
[2018-12-11] MEDS: CLOPIDOGREL 75 MG TAB PO (08:01)
[2018-12-11] MEDS: COLLAGENASE 5 GM (UD JAR) TOP (08:01)
[2018-12-11] MEDS: LISINOPRIL 20 MG TAB PO (08:01)
[2018-12-11] MEDS: SODIUM HYPOCHLORITE (1/40) 1 APPLIC BTL IRR (08:01)
[2018-12-11] MEDS: BUPROPION (SR) 150 MG TAB PO (08:01)
[2018-12-11] MEDS: POLYETHYLENE GLYCOL 17 GM PACKET PO (08:01)
[2018-12-11] MEDS: FAMOTIDINE 20 MG TAB PO (08:02)
[2018-12-11] MEDS: LACTOBACILLUS RHAMNOSUS CAP PO (08:02)
[2018-12-11] MEDS: ASPIRIN (EC) 81 MG TAB PO (08:02)
[2018-12-11] MEDS: AMLODIPINE 10 MG TAB PO (08:02)
[2018-12-11] MEDS: ENOXAPARIN 30 MG/0.3 ML SYG SC (08:12)
[2018-12-11] MEDS: NIFEdipine (XL) 30 MG TAB PO (08:44)
== END 2018-12-11 15:21 | DRG 854 ==
LOC: ICU 11-29 18:34 → 6WM 12-05 12:49 → E/R 21:19 → 2NE 11-17 14:04 → 6WM 11-29 23:50 → TEL 11-16 01:37
PROVIDERS: Internal Medicine
PROC: 0QBP0ZZ Excision of Left Metatarsal, Open Approach (ICD-10-PCS; principal; 2018-11-23 09:41)
PROC: 047S3ZZ Dilation of Left Posterior Tibial Artery, Percutaneous Approach (ICD-10-PCS; 2018-11-23 09:41)
PROC: 0QBM0ZZ Excision of Left Tarsal, Open Approach (ICD-10-PCS; 2018-11-23 09:41)
PROC: 0LBW0ZZ Excision of Left Foot Tendon, Open Approach (ICD-10-PCS; 2018-11-23 09:41)
PROC: 0YBN0ZZ Excision of Left Foot, Open Approach (ICD-10-PCS; 2018-11-23 09:41)
PROC: 30233N1 Transfusion of Nonautologous Red Blood Cells into Peripheral Vein, Percutaneous Approach (ICD-10-PCS; 2018-11-23 09:41)
DX: A41.59 Other Gram-negative sepsis (principal); N17.9 Acute kidney failure, unspecified; D62 Acute posthemorrhagic anemia; M86.672 Other chronic osteomyelitis, left ankle and foot; L03.116 Cellulitis of left lower limb; L02.612 Cutaneous abscess of left foot; I70.262 Atherosclerosis of native arteries of extremities with gangrene, left leg; L97.528 Non-pressure chronic ulcer of other part of left foot with other specified severity; E11.52 Type 2 diabetes mellitus with diabetic peripheral angiopathy with gangrene; N39.0 Urinary tract infection, site not specified; M25.375 Other instability, left foot; E11.621 Type 2 diabetes mellitus with foot ulcer; E11.69 Type 2 diabetes mellitus with other specified complication; E11.610 Type 2 diabetes mellitus with diabetic neuropathic arthropathy; I45.81 Long QT syndrome; K59.00 Constipation, unspecified; F43.20 Adjustment disorder, unspecified; R62.7 Adult failure to thrive; R55 Syncope and collapse; E78.5 Hyperlipidemia, unspecified; E87.6 Hypokalemia; E11.22 Type 2 diabetes mellitus with diabetic chronic kidney disease; I12.9 Hypertensive chronic kidney disease with stage 1 through stage 4 chronic kidney disease, or unspecified chronic kidney disease; N18.9 Chronic kidney disease, unspecified; E11.21 Type 2 diabetes mellitus with diabetic nephropathy; I25.10 Atherosclerotic heart disease of native coronary artery without angina pectoris; B96.5 Pseudomonas (aeruginosa) (mallei) (pseudomallei) as the cause of diseases classified elsewhere; B96.20 Unspecified Escherichia coli [E. coli] as the cause of diseases classified elsewhere; Z91.19 Patient's noncompliance with other medical treatment and regimen
CPT/HCPCS: 36415; 36430; 70450; 71045; 73610; 73630-LT; 73718; 73721; 74018; 75630; 75710; 80048; 80053; 80061; 80076; 80307; 81001; 81003; 82043; 82270; 82550; 82553; 82595; 82728; 82962; 83036; 83540; 83605; 83690; 83735; 84100; 84132; 84155; 84300; 84439; 84443; 84484; 85025; 85610; 85651; 85730; 86021; 86038; 86140; 86160; 86226; 86430; 86644; 86704; 86709; 86803; 86850; 86900; 86901; 86920; 87040; 87070; 87081; 87086; 87340; 92610; 93005; 93922; 94640; 94664; 96374; 97110; 97161; 97164; 97530; 99291-25

== ENCOUNTER 2018-12-24 12:14 | Inpatient (IN) | payer OTHER ==
[2018-12-24 15:49] LABS: ADD MAN DIFF? NO
[2018-12-24 15:55] LABS: WHITE BLOOD COUNT 6.7 10^3/ul (4.8-10.8)
[2018-12-24 15:55] LABS: BASOPHILS % 0.3 % (0.0-2.0); EOSINOPHILS # 0.1 10^3/ul (0.0-0.5); EOSINOPHILS % 0.7 % (0.0-7.0); HEMATOCRIT 37.8 % (37.0-47.0); HEMOGLOBIN 12.2 g/dl (12.0-16.0); LYMPHOCYTES # 1.1 10^3/ul (0.8-2.9); LYMPHOCYTES % 17.1 % (15.0-51.0); MEAN CORPUSCULAR HEMOGLOBIN 27.8 pg (29.0-33.0); MEAN CORPUSCULAR HGB CONC 32.3 g/dl (32.0-37.0); MEAN CORPUSCULAR VOLUME 86.1 fl (82.0-101.0); MEAN PLATELET VOLUME 11.3 fl (7.4-10.4); MONOCYTE # 0.4 10^3/ul (0.3-0.9); MONOCYTES % 5.7 % (0.0-11.0); NEUTROPHIL # 5.1 10^3/ul (1.6-7.5); NEUTROPHILS % 75.9 % (39.0-77.0); PLATELET COUNT 235 10^3/UL (140-415); RED BLOOD COUNT 4.39 10^6/ul (4.20-5.40); RED CELL DISTRIBUTION WIDTH 13.3 % (11.5-14.5)
[2018-12-24 16:12] LABS: ALANINE AMINOTRANSFERASE 16 IU/L (13-69); ALBUMIN 3.2 g/dl (3.3-4.9); ALBUMIN/GLOBULIN RATIO 0.86; ALKALINE PHOSPHATASE 182 IU/L (42-121); ANION GAP 7 (5-13); ASPARTATE AMINO TRANSFERASE 17 IU/L (15-46); BILIRUBIN,INDIRECT 0.2 mg/dl (0-1.1); BILIRUBIN,TOTAL 0.2 mg/dl (0.2-1.3); BLOOD UREA NITROGEN 15 mg/dl (7-20); CALCIUM 8.9 mg/dl (8.4-10.2); CARBON DIOXIDE 30 mmol/L (21-31); CHLORIDE 103 mmol/L (97-110); CREATININE 1.25 mg/dl (0.44-1.00); Estimated GFR 44 mL/min (>60); GLUCOSE 135 mg/dl (70-220); LIPASE 29 U/L (23-300); POTASSIUM 3.1 mmol/L (3.5-5.1); SODIUM 140 mmol/L (135-144); TOTAL PROTEIN 6.9 g/dl (6.1-8.1)
[2018-12-24] MEDS: ONDANSETRON 4 MG INJ IV (16:57)
[2018-12-24] MEDS: SOD CHLORIDE 0.9% 500 ML IV (16:58)
[2018-12-24 17:08] LABS: TROPONIN-I < 0.012 ng/ml (0.000-0.120)
[2018-12-24 18:18] LABS: ADD UMIC YES; UR ASCORBIC ACID NEGATIVE (NEGATIVE); UR BILIRUBIN (Dip) NEGATIVE (NEGATIVE); UR BLOOD (Dip) NEGATIVE (NEGATIVE); UR BUDDING YEAST FEW /HPF (NONE SEEN); UR CLARITY SLIGHTLY CLOUDY (CLEAR); UR COLOR YELLOW (YELLOW); UR GLUCOSE (Dip) 1+ mg/dL (NEGATIVE); UR KETONES (Dip) NEGATIVE (NEGATIVE); UR LEUKOCYTE ESTERASE (Dip) TRACE Leu/ul (NEGATIVE); UR NITRITE (Dip) NEGATIVE (NEGATIVE); UR NONSQUAMOUS EPITHELIAL CELL 2 /HPF (NONE SEEN); UR RBC 9 /HPF (0-5); UR SPECIFIC GRAVITY (Dip) 1.013 (1.003-1.030); UR SQUAMOUS EPITHELIAL CELL MODERATE /HPF (FEW); UR TOTAL PROTEIN (Dip) 3+ mg/dl (NEGATIVE); UR UROBILINOGEN (Dip) NEGATIVE (NEGATIVE); UR WBC 11 /HPF (0-5)
[2018-12-24] MEDS: CEFEPIME 1GM/50 ML (PMX) 50 ML IVPB (20:16)
[2018-12-24 20:24] LABS: C-REACTIVE PROTEIN 0.6 mg/dl (0.0-0.9)
[2018-12-24] MEDS ORDERED: ONDANSETRON 4 MG INJ IV (20:30)
[2018-12-24] MEDS ORDERED: ACETAMINOPHEN 325 MG TAB PO ×2 (20:30→22:00)
[2018-12-24 21:18] LABS: ERYTHROCYTE SEDIMENTATION RATE 25 mm/Hr (0-30)
[2018-12-24] MEDS: VANCOMYCIN 1 GM (PMX) 250 ML IVPB (21:22)
[2018-12-24] MEDS ORDERED: VANCOMYCIN IV PER PHARMACY XX (22:00)
[2018-12-24] MEDS ORDERED: NACL 0.9% 3 ML SYG IV (22:00)
[2018-12-24] MEDS: SOD CHLORIDE 0.9% 1,000 ML IV (22:48)
[2018-12-24] MEDS: POTASSIUM CHLORIDE 20 MEQ POWDER FOR ORAL SOLN PO (22:48)
[2018-12-24] MEDS: LABETALOL HCL 20MG INJ IV (23:44)
[2018-12-25] MEDS: INSULIN ASPART [NOVOLOG] 3 ML PEN SC ×3 (01:44→21:00)
[2018-12-25] MEDS: PANTOPRAZOLE 40 MG INJ IV ×2 (01:44→05:21)
[2018-12-25] MEDS: ACCU-CHEK XX (02:00)
[2018-12-25] MEDS ORDERED: INSULIN ASPART [NOVOLOG] 3 ML PEN SC ×2 (05:00→07:30)
[2018-12-25] MEDS: Insulin NOVOLOG SS MILD Algorithm (NPO/TPN/ENTERAL FEEDS) SC (05:21)
[2018-12-25] MEDS ORDERED: PENDING SANTYL ORDER FOR WOUND CARE XX (06:30)
[2018-12-25 07:14] LABS: ADD MAN DIFF? NO
[2018-12-25 07:17] LABS: WHITE BLOOD COUNT 6.4 10^3/ul (4.8-10.8)
[2018-12-25 07:17] LABS: BASOPHILS % 0.3 % (0.0-2.0); EOSINOPHILS # 0.1 10^3/ul (0.0-0.5); EOSINOPHILS % 1.2 % (0.0-7.0); HEMATOCRIT 33.3 % (37.0-47.0); HEMOGLOBIN 10.6 g/dl (12.0-16.0); LYMPHOCYTES # 0.9 10^3/ul (0.8-2.9); MEAN CORPUSCULAR HGB CONC 31.8 g/dl (32.0-37.0); MEAN CORPUSCULAR VOLUME 88.1 fl (82.0-101.0); MEAN PLATELET VOLUME 11.4 fl (7.4-10.4); MONOCYTE # 0.5 10^3/ul (0.3-0.9); MONOCYTES % 8.2 % (0.0-11.0); NEUTROPHIL # 4.9 10^3/ul (1.6-7.5); NEUTROPHILS % 76.1 % (39.0-77.0); PLATELET COUNT 181 10^3/UL (140-415); RED BLOOD COUNT 3.78 10^6/ul (4.20-5.40); RED CELL DISTRIBUTION WIDTH 13.3 % (11.5-14.5)
[2018-12-25] MEDS: Insulin NOVOLOG SS MILD Algorithm (SS with meals and bedtime) SC ×2 (07:30→12:07)
[2018-12-25 07:37] LABS: HEMOGLOBIN A1C 6.1 % (0-5.9)
[2018-12-25 07:51] LABS: ALANINE AMINOTRANSFERASE 11 IU/L (13-69); ALBUMIN 2.6 g/dl (3.3-4.9); ALBUMIN/GLOBULIN RATIO 0.83; ALKALINE PHOSPHATASE 146 IU/L (42-121); ANION GAP 5 (5-13); ASPARTATE AMINO TRANSFERASE 13 IU/L (15-46); BILIRUBIN,INDIRECT 0.1 mg/dl (0-1.1); BILIRUBIN,TOTAL 0.1 mg/dl (0.2-1.3); BLOOD UREA NITROGEN 16 mg/dl (7-20); CALCIUM 8.3 mg/dl (8.4-10.2); CARBON DIOXIDE 30 mmol/L (21-31); CHLORIDE 107 mmol/L (97-110); Estimated GFR 52 mL/min (>60); GLUCOSE 189 mg/dl (70-220); MAGNESIUM 1.7 mg/dl (1.7-2.5); POTASSIUM 3.3 mmol/L (3.5-5.1); SODIUM 142 mmol/L (135-144); TOTAL PROTEIN 5.7 g/dl (6.1-8.1)
[2018-12-25] MEDS: CEFEPIME 1GM/50 ML (PMX) 50 ML IVPB ×2 (08:05→21:55)
[2018-12-25] MEDS: LISINOPRIL 20 MG TAB PO (08:05)
[2018-12-25] MEDS: AMLODIPINE 10 MG TAB PO (08:06)
[2018-12-25] MEDS: ASCORBIC ACID 500 MG TAB PO (08:06)
[2018-12-25] MEDS: VANCOMYCIN 750 MG (PMX) 250 ML IVPB (08:51)
[2018-12-25] MEDS ORDERED: FAMOTIDINE 20 MG TAB PO (09:00)
[2018-12-25] MEDS: NYSTATIN 30 GM POWDER BTL TOP ×2 (14:07→21:55)
[2018-12-25] MEDS: SOD CHLORIDE 0.9% 1,000 ML IV (17:12)
[2018-12-25] MEDS ORDERED: ROPIVACAINE 0.2% 20 ML VIAL ×2 (18:20→18:31)
[2018-12-25] MEDS ORDERED: MIDAZOLAM 1 MG/ML 2 ML INJ (18:20)
[2018-12-25] MEDS: POLYMYXIN/BACITRACIN 1L IRRIG IRR (18:36)
[2018-12-25] MEDS ORDERED: ONDANSETRON 4 MG INJ (19:31)
[2018-12-25] MEDS ORDERED: INSULIN GLARGINE [LANTus] (100 UNITS/ML) SYG SC (20:00)
[2018-12-25] MEDS: hydrALAzine 20 MG INJ IV (20:03)
[2018-12-25] MEDS: INSULIN GLARGINE [LANTus] (100 UNITS/ML) SYG SC (21:54)
[2018-12-25] MEDS: ATORVASTATIN 40 MG TAB PO (21:58)
[2018-12-25] MEDS: MONTELUKAST 10 MG TAB PO (22:00)
[2018-12-26] MEDS: INSULIN ASPART [NOVOLOG] 3 ML PEN SC ×5 (00:20→21:00)
[2018-12-26] MEDS ORDERED: GLUCAGON 1 MG INJ IM (00:30)
[2018-12-26] MEDS ORDERED: DEXTROSE 50% 50 ML SYRINGE IV ×2 (00:30)
[2018-12-26] MEDS ORDERED: GLUCOSE GEL 15 GRAM TUBE PO ×2 (00:30)
[2018-12-26] MEDS: ACCU-CHEK XX (02:00)
[2018-12-26] MEDS: morphine 2 MG INJ IV (05:09)
[2018-12-26] MEDS: PANTOPRAZOLE 40 MG INJ IV (05:13)
[2018-12-26 05:28] LABS: ADD MAN DIFF? NO
[2018-12-26 05:33] LABS: WHITE BLOOD COUNT 8.4 10^3/ul (4.8-10.8)
[2018-12-26 05:33] LABS: BASOPHILS % 0.4 % (0.0-2.0); EOSINOPHILS # 0.1 10^3/ul (0.0-0.5); HEMATOCRIT 31.2 % (37.0-47.0); LYMPHOCYTES # 1.2 10^3/ul (0.8-2.9); MEAN CORPUSCULAR HEMOGLOBIN 28.2 pg (29.0-33.0); MEAN CORPUSCULAR HGB CONC 32.1 g/dl (32.0-37.0); MEAN CORPUSCULAR VOLUME 87.9 fl (82.0-101.0); MEAN PLATELET VOLUME 11.8 fl (7.4-10.4); MONOCYTE # 0.5 10^3/ul (0.3-0.9); MONOCYTES % 6.2 % (0.0-11.0); NEUTROPHIL # 6.6 10^3/ul (1.6-7.5); NEUTROPHILS % 77.9 % (39.0-77.0); PLATELET COUNT 178 10^3/UL (140-415); RED BLOOD COUNT 3.55 10^6/ul (4.20-5.40); RED CELL DISTRIBUTION WIDTH 13.4 % (11.5-14.5)
[2018-12-26 06:05] LABS: ANION GAP 4 (5-13); BLOOD UREA NITROGEN 14 mg/dl (7-20); CALCIUM 8.3 mg/dl (8.4-10.2); CARBON DIOXIDE 28 mmol/L (21-31); CHLORIDE 109 mmol/L (97-110); CREATININE 1.08 mg/dl (0.44-1.00); Estimated GFR 53 mL/min (>60); GLUCOSE 70 mg/dl (70-220); POTASSIUM 3.2 mmol/L (3.5-5.1); SODIUM 141 mmol/L (135-144)
[2018-12-26 06:41] LABS: MAGNESIUM 1.8 mg/dl (1.7-2.5)
[2018-12-26 06:41] LABS: PHOSPHORUS 4.1 mg/dl (2.5-4.9)
[2018-12-26] MEDS: SOD CHLORIDE 0.9% 1,000 ML IV ×2 (07:30→13:50)
[2018-12-26] MEDS: GLUCOSE GEL 15 GRAM TUBE BUCCAL (08:14)
[2018-12-26] MEDS: AMLODIPINE 10 MG TAB PO (08:17)
[2018-12-26] MEDS: LISINOPRIL 20 MG TAB PO (08:17)
[2018-12-26] MEDS: ASCORBIC ACID 500 MG TAB PO (08:17)
[2018-12-26] MEDS: NYSTATIN 30 GM POWDER BTL TOP ×2 (08:18→20:58)
[2018-12-26] MEDS: CEFEPIME 1GM/50 ML (PMX) 50 ML IVPB ×2 (08:18→20:57)
[2018-12-26] MEDS ORDERED: VANCOMYCIN HCL 1.25 GM in SOD CHLORIDE 0.9% 250 ML IVPB (09:00)
[2018-12-26] MEDS: VANCOMYCIN 750 MG (PMX) 250 ML IVPB (09:17)
[2018-12-26] MEDS: POTASSIUM CHLORIDE (SR) 20 MEQ TAB PO (15:31)
[2018-12-26] MEDS: SUCRALFATE 1 GM TAB PO ×2 (17:08→20:56)
[2018-12-26] MEDS: BUPROPION (SR) 150 MG TAB PO (20:56)
[2018-12-26] MEDS: ATORVASTATIN 40 MG TAB PO (20:56)
[2018-12-26] MEDS: POLYETHYLENE GLYCOL 17 GM PACKET PO (20:57)
[2018-12-26] MEDS: MONTELUKAST 10 MG TAB PO (20:57)
[2018-12-26] MEDS: INSULIN GLARGINE [LANTus] (100 UNITS/ML) SYG SC (21:06)
[2018-12-27] MEDS: VANCOMYCIN 750 MG (PMX) 250 ML IVPB ×3 (00:05→21:55)
[2018-12-27] MEDS: ACCU-CHEK XX (02:00)
[2018-12-27] MEDS: PANTOPRAZOLE 40 MG INJ IV (05:42)
[2018-12-27 06:28] LABS: ADD MAN DIFF? NO
[2018-12-27 06:40] LABS: BASOPHILS % 0.4 % (0.0-2.0); EOSINOPHILS # 0.1 10^3/ul (0.0-0.5); EOSINOPHILS % 1.6 % (0.0-7.0); HEMATOCRIT 30.7 % (37.0-47.0); HEMOGLOBIN 9.7 g/dl (12.0-16.0); LYMPHOCYTES # 1.4 10^3/ul (0.8-2.9); LYMPHOCYTES % 21.2 % (15.0-51.0); MEAN CORPUSCULAR HGB CONC 31.6 g/dl (32.0-37.0); MEAN CORPUSCULAR VOLUME 88.7 fl (82.0-101.0); MEAN PLATELET VOLUME 11.9 fl (7.4-10.4); MONOCYTE # 0.5 10^3/ul (0.3-0.9); MONOCYTES % 7.5 % (0.0-11.0); NEUTROPHIL # 4.7 10^3/ul (1.6-7.5); PLATELET COUNT 184 10^3/UL (140-415); RED BLOOD COUNT 3.46 10^6/ul (4.20-5.40); RED CELL DISTRIBUTION WIDTH 13.4 % (11.5-14.5)
[2018-12-27 06:40] LABS: WHITE BLOOD COUNT 6.8 10^3/ul (4.8-10.8)
[2018-12-27 07:13] LABS: ANION GAP 4 (5-13); BLOOD UREA NITROGEN 14 mg/dl (7-20); CALCIUM 8.3 mg/dl (8.4-10.2); CARBON DIOXIDE 30 mmol/L (21-31); CHLORIDE 107 mmol/L (97-110); CREATININE 1.04 mg/dl (0.44-1.00); Estimated GFR 55 mL/min (>60); GLUCOSE 78 mg/dl (70-220); POTASSIUM 3.8 mmol/L (3.5-5.1); SODIUM 141 mmol/L (135-144)
[2018-12-27 07:29] LABS: PHOSPHORUS 3.8 mg/dl (2.5-4.9)
[2018-12-27 07:29] LABS: MAGNESIUM 1.6 mg/dl (1.7-2.5)
[2018-12-27] MEDS: INSULIN ASPART [NOVOLOG] 3 ML PEN SC ×4 (08:00→21:00)
[2018-12-27] MEDS: BUPROPION (SR) 150 MG TAB PO ×2 (08:32→21:10)
[2018-12-27] MEDS: LISINOPRIL 20 MG TAB PO (08:33)
[2018-12-27] MEDS: SUCRALFATE 1 GM TAB PO ×4 (08:33→21:10)
[2018-12-27] MEDS: ZINC SULFATE 220 MG CAP PO (08:33)
[2018-12-27] MEDS: AMLODIPINE 10 MG TAB PO (08:33)
[2018-12-27] MEDS: ASCORBIC ACID 500 MG TAB PO (08:34)
[2018-12-27] MEDS: POLYETHYLENE GLYCOL 17 GM PACKET PO ×2 (08:34→21:10)
[2018-12-27] MEDS: MULTIVITAMINS/MINERALS TAB PO (08:34)
[2018-12-27] MEDS: CEFEPIME 1GM/50 ML (PMX) 50 ML IVPB ×2 (08:34→21:07)
[2018-12-27] MEDS: NYSTATIN 30 GM POWDER BTL TOP ×2 (08:35→21:13)
[2018-12-27] MEDS ORDERED: NON-FORMULARY/PATIENT OWN MED (Amino Acids/Protein Hydrolys (Pro-Stat Liquid) 30 ML) PO (09:00)
[2018-12-27] MEDS ORDERED: CLOPIDOGREL 75 MG TAB PO (09:00)
[2018-12-27] MEDS ORDERED: ASPIRIN 81 MG TAB PO (09:00)
[2018-12-27 09:32] LABS: VANCOMYCIN,TROUGH 15.5 ug/ml (10.0-20.0)
[2018-12-27] MEDS: SOD CHLORIDE 0.9% 1,000 ML IV (10:30)
[2018-12-27] MEDS: NA PHOSPHATE/BIPHOS 133 ML ENEMA PR (16:48)
[2018-12-27] MEDS: ATORVASTATIN 40 MG TAB PO (21:07)
[2018-12-27] MEDS: INSULIN GLARGINE [LANTus] (100 UNITS/ML) SYG SC (21:07)
[2018-12-27] MEDS: MONTELUKAST 10 MG TAB PO (21:10)
[2018-12-27] MEDS: MAGNESIUM OXIDE 400 MG TAB PO (23:04)
[2018-12-27] MEDS: BISACODYL 10 MG SUPP PR (23:05)
[2018-12-28] MEDS: ACCU-CHEK XX (02:00)
[2018-12-28] MEDS: hydrALAzine 20 MG INJ IV (03:39)
[2018-12-28] MEDS: PANTOPRAZOLE 40 MG INJ IV (05:26)
[2018-12-28] MEDS: SOD CHLORIDE 0.9% 1,000 ML IV (06:18)
[2018-12-28] MEDS: INSULIN ASPART [NOVOLOG] 3 ML PEN SC ×4 (08:00→21:11)
[2018-12-28] MEDS: POLYETHYLENE GLYCOL 17 GM PACKET PO ×2 (08:34→21:12)
[2018-12-28] MEDS: CEFEPIME 1GM/50 ML (PMX) 50 ML IVPB (08:35)
[2018-12-28] MEDS: ASCORBIC ACID 500 MG TAB PO (08:35)
[2018-12-28] MEDS: BUPROPION (SR) 150 MG TAB PO ×2 (08:35→21:16)
[2018-12-28] MEDS: MULTIVITAMINS/MINERALS TAB PO (08:36)
[2018-12-28] MEDS: ZINC SULFATE 220 MG CAP PO (08:36)
[2018-12-28] MEDS: SUCRALFATE 1 GM TAB PO ×4 (08:36→21:12)
[2018-12-28] MEDS: AMLODIPINE 10 MG TAB PO (08:36)
[2018-12-28] MEDS: LISINOPRIL 20 MG TAB PO (08:37)
[2018-12-28] MEDS: NYSTATIN 30 GM POWDER BTL TOP ×2 (08:37→21:13)
[2018-12-28] MEDS: VANCOMYCIN 750 MG (PMX) 250 ML IVPB ×2 (10:35→22:09)
[2018-12-28] MEDS: ASPIRIN (EC) 81 MG TAB PO (18:06)
[2018-12-28] MEDS: CLOPIDOGREL 75 MG TAB PO (18:06)
[2018-12-28] MEDS: INSULIN GLARGINE [LANTus] (100 UNITS/ML) SYG SC (21:10)
[2018-12-28] MEDS: MONTELUKAST 10 MG TAB PO (21:12)
[2018-12-28] MEDS: ATORVASTATIN 40 MG TAB PO (21:12)
[2018-12-28] MEDS: AZTREONAM 1 GM/NS (PMX) 50 ML IVPB (21:31)
[2018-12-29] MEDS: SOD CHLORIDE 0.9% 1,000 ML IV ×2 (02:00→05:49)
[2018-12-29] MEDS: ACCU-CHEK XX (02:00)
[2018-12-29] MEDS: AZTREONAM 1 GM/NS (PMX) 50 ML IVPB ×3 (05:48→22:30)
[2018-12-29] MEDS: PANTOPRAZOLE (EC) 40 MG TAB PO (05:49)
[2018-12-29 06:16] LABS: ANION GAP 10 (5-13); BLOOD UREA NITROGEN 22 mg/dl (7-20); CALCIUM 8.3 mg/dl (8.4-10.2); CARBON DIOXIDE 26 mmol/L (21-31); CHLORIDE 104 mmol/L (97-110); Estimated GFR 47 mL/min (>60); GLUCOSE 189 mg/dl (70-220); POTASSIUM 3.5 mmol/L (3.5-5.1); SODIUM 140 mmol/L (135-144)
[2018-12-29] MEDS: BUPROPION (SR) 150 MG TAB PO ×2 (08:28→20:23)
[2018-12-29] MEDS: ASCORBIC ACID 500 MG TAB PO (08:28)
[2018-12-29] MEDS: AMLODIPINE 10 MG TAB PO (08:28)
[2018-12-29] MEDS: SUCRALFATE 1 GM TAB PO ×4 (08:28→20:22)
[2018-12-29] MEDS: ASPIRIN (EC) 81 MG TAB PO (08:29)
[2018-12-29] MEDS: LISINOPRIL 20 MG TAB PO (08:29)
[2018-12-29] MEDS: POLYETHYLENE GLYCOL 17 GM PACKET PO ×2 (08:29→20:23)
[2018-12-29] MEDS: ZINC SULFATE 220 MG CAP PO (08:29)
[2018-12-29] MEDS: MULTIVITAMINS/MINERALS TAB PO (08:29)
[2018-12-29] MEDS: ENOXAPARIN 40 MG/0.4 ML SYG SC (08:30)
[2018-12-29] MEDS: INSULIN ASPART [NOVOLOG] 3 ML PEN SC ×4 (08:31→20:18)
[2018-12-29] MEDS: CLOPIDOGREL 75 MG TAB PO (08:31)
[2018-12-29] MEDS: NYSTATIN 30 GM POWDER BTL TOP ×2 (08:32→21:42)
[2018-12-29] MEDS: VANCOMYCIN 750 MG (PMX) 250 ML IVPB (08:33)
[2018-12-29] MEDS: HYDROCODONE/APAP (5/325) TAB PO (09:43)
[2018-12-29] MEDS: BISACODYL 10 MG SUPP PR ×2 (13:15→22:38)
[2018-12-29] MEDS: morphine 2 MG INJ IV (14:50)
[2018-12-29] MEDS: INSULIN GLARGINE [LANTus] (100 UNITS/ML) SYG SC (20:17)
[2018-12-29] MEDS: MONTELUKAST 10 MG TAB PO (20:22)
[2018-12-29] MEDS: ATORVASTATIN 40 MG TAB PO (20:22)
[2018-12-29 21:08] LABS: VANCOMYCIN,TROUGH 21.2 ug/ml (10.0-20.0)
[2018-12-30] MEDS: ACCU-CHEK XX (02:04)
[2018-12-30] MEDS: VANCOMYCIN 1 GM 250 ML IVPB (05:43)
[2018-12-30] MEDS: SOD CHLORIDE 0.9% 1,000 ML IV (05:44)
[2018-12-30] MEDS: PANTOPRAZOLE (EC) 40 MG TAB PO (05:45)
[2018-12-30 06:21] LABS: ADD MAN DIFF? NO
[2018-12-30 06:25] LABS: WHITE BLOOD COUNT 6.1 10^3/ul (4.8-10.8)
[2018-12-30 06:25] LABS: BASOPHILS % 0.5 % (0.0-2.0); EOSINOPHILS # 0.2 10^3/ul (0.0-0.5); EOSINOPHILS % 3.4 % (0.0-7.0); HEMATOCRIT 29.8 % (37.0-47.0); HEMOGLOBIN 9.4 g/dl (12.0-16.0); LYMPHOCYTES # 1.2 10^3/ul (0.8-2.9); LYMPHOCYTES % 19.5 % (15.0-51.0); MEAN CORPUSCULAR HEMOGLOBIN 27.6 pg (29.0-33.0); MEAN CORPUSCULAR HGB CONC 31.5 g/dl (32.0-37.0); MEAN CORPUSCULAR VOLUME 87.4 fl (82.0-101.0); MEAN PLATELET VOLUME 11.3 fl (7.4-10.4); MONOCYTE # 0.4 10^3/ul (0.3-0.9); MONOCYTES % 6.2 % (0.0-11.0); NEUTROPHIL # 4.3 10^3/ul (1.6-7.5); NEUTROPHILS % 70.1 % (39.0-77.0); PLATELET COUNT 217 10^3/UL (140-415); RED BLOOD COUNT 3.41 10^6/ul (4.20-5.40); RED CELL DISTRIBUTION WIDTH 13.1 % (11.5-14.5)
[2018-12-30 07:08] LABS: ANION GAP 9 (5-13); BLOOD UREA NITROGEN 22 mg/dl (7-20); CALCIUM 8.5 mg/dl (8.4-10.2); CARBON DIOXIDE 27 mmol/L (21-31); CHLORIDE 104 mmol/L (97-110); CREATININE 1.18 mg/dl (0.44-1.00); Estimated GFR 48 mL/min (>60); GLUCOSE 128 mg/dl (70-220); POTASSIUM 3.9 mmol/L (3.5-5.1); SODIUM 140 mmol/L (135-144)
[2018-12-30] MEDS: INSULIN ASPART [NOVOLOG] 3 ML PEN SC ×4 (08:00→21:01)
[2018-12-30] MEDS: AMLODIPINE 10 MG TAB PO (08:14)
[2018-12-30] MEDS: ENOXAPARIN 40 MG/0.4 ML SYG SC (08:14)
[2018-12-30] MEDS: CLOPIDOGREL 75 MG TAB PO (08:14)
[2018-12-30] MEDS: BUPROPION (SR) 150 MG TAB PO ×2 (08:14→21:01)
[2018-12-30] MEDS: SUCRALFATE 1 GM TAB PO ×4 (08:14→20:57)
[2018-12-30] MEDS: MULTIVITAMINS/MINERALS TAB PO (08:14)
[2018-12-30] MEDS: ZINC SULFATE 220 MG CAP PO (08:14)
[2018-12-30] MEDS: ASCORBIC ACID 500 MG TAB PO (08:15)
[2018-12-30] MEDS: POLYETHYLENE GLYCOL 17 GM PACKET PO ×2 (08:15→20:56)
[2018-12-30] MEDS: ASPIRIN (EC) 81 MG TAB PO (08:16)
[2018-12-30] MEDS: NYSTATIN 30 GM POWDER BTL TOP ×2 (08:19→21:00)
[2018-12-30] MEDS: LISINOPRIL 20 MG TAB PO (10:02)
[2018-12-30] MEDS: AZTREONAM 1 GM/NS (PMX) 50 ML IVPB ×2 (10:02→15:23)
[2018-12-30] MEDS: NA PHOSPHATE/BIPHOS 133 ML ENEMA PR (15:43)
[2018-12-30] MEDS: ATORVASTATIN 40 MG TAB PO (20:56)
[2018-12-30] MEDS: MONTELUKAST 10 MG TAB PO (20:56)
[2018-12-30] MEDS: INSULIN GLARGINE [LANTus] (100 UNITS/ML) SYG SC (21:00)
[2018-12-31] MEDS: ACCU-CHEK XX (02:00)
[2018-12-31] MEDS: AZTREONAM 1 GM/NS (PMX) 50 ML IVPB ×4 (02:10→22:25)
[2018-12-31] MEDS: VANCOMYCIN 1 GM 250 ML IVPB (05:21)
[2018-12-31] MEDS: PANTOPRAZOLE (EC) 40 MG TAB PO (05:21)
[2018-12-31] MEDS: SOD CHLORIDE 0.9% 1,000 ML IV (05:25)
[2018-12-31 06:42] LABS: ANION GAP 6 (5-13); BLOOD UREA NITROGEN 23 mg/dl (7-20); CALCIUM 8.4 mg/dl (8.4-10.2); CARBON DIOXIDE 26 mmol/L (21-31); CHLORIDE 110 mmol/L (97-110); Estimated GFR 58 mL/min (>60); GLUCOSE 162 mg/dl (70-220); POTASSIUM 3.8 mmol/L (3.5-5.1); SODIUM 142 mmol/L (135-144)
[2018-12-31] MEDS: SUCRALFATE 1 GM TAB PO ×4 (07:49→21:04)
[2018-12-31] MEDS: INSULIN ASPART [NOVOLOG] 3 ML PEN SC ×4 (07:57→21:03)
[2018-12-31] MEDS: POLYETHYLENE GLYCOL 17 GM PACKET PO ×2 (08:33→21:04)
[2018-12-31] MEDS: BUPROPION (SR) 150 MG TAB PO ×2 (08:34→21:04)
[2018-12-31] MEDS: ASCORBIC ACID 500 MG TAB PO (08:34)
[2018-12-31] MEDS: ZINC SULFATE 220 MG CAP PO (08:34)
[2018-12-31] MEDS: CLOPIDOGREL 75 MG TAB PO (08:34)
[2018-12-31] MEDS: MULTIVITAMINS/MINERALS TAB PO (08:34)
[2018-12-31] MEDS: ENOXAPARIN 40 MG/0.4 ML SYG SC (08:34)
[2018-12-31] MEDS: ASPIRIN (EC) 81 MG TAB PO (08:34)
[2018-12-31] MEDS: LISINOPRIL 20 MG TAB PO (08:35)
[2018-12-31] MEDS: AMLODIPINE 10 MG TAB PO (08:35)
[2018-12-31] MEDS: NYSTATIN 30 GM POWDER BTL TOP ×2 (08:36→21:06)
[2018-12-31] MEDS: BISACODYL (EC) 5 MG TAB PO ×2 (15:22→16:19)
[2018-12-31] MEDS: BISACODYL 10 MG SUPP PR (15:23)
[2018-12-31] MEDS: morphine LIQ (10 MG/5 ML) CUP PO (18:44)
[2018-12-31] MEDS: INSULIN GLARGINE [LANTus] (100 UNITS/ML) SYG SC (21:00)
[2018-12-31] MEDS: ATORVASTATIN 40 MG TAB PO (21:04)
[2018-12-31] MEDS: MONTELUKAST 10 MG TAB PO (21:04)
[2019-01-01] MEDS: ACCU-CHEK XX (02:00)
[2019-01-01] MEDS: hydrALAzine 20 MG INJ IV (02:11)
[2019-01-01] MEDS: VANCOMYCIN 1 GM 250 ML IVPB (05:23)
[2019-01-01] MEDS: PANTOPRAZOLE (EC) 40 MG TAB PO (06:05)
[2019-01-01] MEDS: morphine LIQ (10 MG/5 ML) CUP PO (06:07)
[2019-01-01] MEDS: INSULIN ASPART [NOVOLOG] 3 ML PEN SC ×4 (08:00→21:00)
[2019-01-01] MEDS: CLOPIDOGREL 75 MG TAB PO (09:30)
[2019-01-01] MEDS: ENOXAPARIN 40 MG/0.4 ML SYG SC (09:30)
[2019-01-01] MEDS: BUPROPION (SR) 150 MG TAB PO ×2 (09:31→20:31)
[2019-01-01] MEDS: MULTIVITAMINS/MINERALS TAB PO (09:31)
[2019-01-01] MEDS: ASPIRIN (EC) 81 MG TAB PO (09:31)
[2019-01-01] MEDS: ZINC SULFATE 220 MG CAP PO (09:31)
[2019-01-01] MEDS: SUCRALFATE 1 GM TAB PO ×4 (09:31→20:25)
[2019-01-01] MEDS: ASCORBIC ACID 500 MG TAB PO (09:32)
[2019-01-01] MEDS: LISINOPRIL 20 MG TAB PO (09:32)
[2019-01-01] MEDS: AMLODIPINE 10 MG TAB PO (09:32)
[2019-01-01] MEDS: AZTREONAM 1 GM/NS (PMX) 50 ML IVPB ×3 (09:37→22:25)
[2019-01-01] MEDS: POLYETHYLENE GLYCOL 17 GM PACKET PO ×2 (09:38→20:26)
[2019-01-01] MEDS: SOD CHLORIDE 0.9% 1,000 ML IV (09:45)
[2019-01-01] MEDS: NYSTATIN 30 GM POWDER BTL TOP ×2 (11:38→20:27)
[2019-01-01] MEDS: ONDANSETRON 4 MG INJ IV (11:43)
[2019-01-01] MEDS: INSULIN GLARGINE [LANTus] (100 UNITS/ML) SYG SC (20:24)
[2019-01-01] MEDS: ATORVASTATIN 40 MG TAB PO (20:25)
[2019-01-01] MEDS: MONTELUKAST 10 MG TAB PO (20:25)
[2019-01-02] MEDS: hydrALAzine 20 MG INJ IV (02:49)
[2019-01-02] MEDS: ONDANSETRON 4 MG INJ IV ×2 (02:49→09:58)
[2019-01-02] MEDS: AZTREONAM 1 GM/NS (PMX) 50 ML IVPB ×3 (05:57→21:17)
[2019-01-02] MEDS: PANTOPRAZOLE (EC) 40 MG TAB PO (05:57)
[2019-01-02] MEDS: VANCOMYCIN 1 GM 250 ML IVPB (06:34)
[2019-01-02 07:01] LABS: BLOOD UREA NITROGEN 24 mg/dl (7-20)
[2019-01-02 07:01] LABS: CREATININE 1.08 mg/dl (0.44-1.00)
[2019-01-02] MEDS: INSULIN ASPART [NOVOLOG] 3 ML PEN SC ×4 (08:00→21:15)
[2019-01-02] MEDS: ASCORBIC ACID 500 MG TAB PO (09:57)
[2019-01-02] MEDS: CLOPIDOGREL 75 MG TAB PO (09:57)
[2019-01-02] MEDS: BUPROPION (SR) 150 MG TAB PO ×2 (09:57→21:11)
[2019-01-02] MEDS: ASPIRIN (EC) 81 MG TAB PO (09:58)
[2019-01-02] MEDS: MULTIVITAMINS/MINERALS TAB PO (09:58)
[2019-01-02] MEDS: AMLODIPINE 10 MG TAB PO (09:58)
[2019-01-02] MEDS: SUCRALFATE 1 GM TAB PO ×4 (09:58→21:11)
[2019-01-02] MEDS: ENOXAPARIN 40 MG/0.4 ML SYG SC (09:59)
[2019-01-02] MEDS: LISINOPRIL 20 MG TAB PO (10:00)
[2019-01-02] MEDS: POLYETHYLENE GLYCOL 17 GM PACKET PO ×2 (10:04→21:18)
[2019-01-02] MEDS: ZINC SULFATE 220 MG CAP PO (10:05)
[2019-01-02] MEDS: NYSTATIN 30 GM POWDER BTL TOP ×2 (10:06→21:18)
[2019-01-02] MEDS: NA PHOSPHATE/BIPHOS 133 ML ENEMA PR (15:49)
[2019-01-02] MEDS: ATORVASTATIN 40 MG TAB PO (21:12)
[2019-01-02] MEDS: INSULIN GLARGINE [LANTus] (100 UNITS/ML) SYG SC (21:15)
[2019-01-03] MEDS: AZTREONAM 1 GM/NS (PMX) 50 ML IVPB ×3 (05:39→23:14)
[2019-01-03 05:49] LABS: VANCOMYCIN,TROUGH 13.4 ug/ml (10.0-20.0)
[2019-01-03] MEDS: VANCOMYCIN 1 GM 250 ML IVPB (06:16)
[2019-01-03] MEDS: INSULIN ASPART [NOVOLOG] 3 ML PEN SC ×4 (08:00→20:16)
[2019-01-03] MEDS: POLYETHYLENE GLYCOL 17 GM PACKET PO ×2 (08:21→20:08)
[2019-01-03] MEDS: CLOPIDOGREL 75 MG TAB PO (08:21)
[2019-01-03] MEDS: BUPROPION (SR) 150 MG TAB PO ×2 (08:22→20:07)
[2019-01-03] MEDS: SUCRALFATE 1 GM TAB PO ×4 (08:22→20:07)
[2019-01-03] MEDS: ASCORBIC ACID 500 MG TAB PO (08:22)
[2019-01-03] MEDS: LISINOPRIL 20 MG TAB PO (08:23)
[2019-01-03] MEDS: ENOXAPARIN 40 MG/0.4 ML SYG SC (08:23)
[2019-01-03] MEDS: ZINC SULFATE 220 MG CAP PO (08:23)
[2019-01-03] MEDS: ASPIRIN (EC) 81 MG TAB PO (08:23)
[2019-01-03] MEDS: NYSTATIN 30 GM POWDER BTL TOP ×2 (08:24→20:07)
[2019-01-03] MEDS ORDERED: IBUPROFEN 200 MG TAB PO (12:30)
[2019-01-03] MEDS: NA PHOSPHATE/BIPHOS 133 ML ENEMA PR (15:00)
[2019-01-03] MEDS: METHYLNALTREXONE 12 MG/0.6 ML VIAL SC (16:20)
[2019-01-03] MEDS: ATORVASTATIN 40 MG TAB PO (20:07)
[2019-01-03] MEDS: INSULIN GLARGINE [LANTus] (100 UNITS/ML) SYG SC (20:16)
[2019-01-04] MEDS ORDERED: NITROGLYCERIN (SL) 0.4 MG TAB (01:48)
[2019-01-04] MEDS: NITROGLYCERIN (SL) 0.4 MG TAB SL (01:50)
[2019-01-04] MEDS: hydrALAzine 20 MG INJ IV ×4 (02:02→20:15)
[2019-01-04 02:35] LABS: ADD MAN DIFF? NO
[2019-01-04 02:38] LABS: BASOPHILS % 0.3 % (0.0-2.0); EOSINOPHILS # 0.1 10^3/ul (0.0-0.5); EOSINOPHILS % 1.7 % (0.0-7.0); HEMATOCRIT 29.4 % (37.0-47.0); HEMOGLOBIN 9.3 g/dl (12.0-16.0); LYMPHOCYTES # 1.1 10^3/ul (0.8-2.9); LYMPHOCYTES % 16.8 % (15.0-51.0); MEAN CORPUSCULAR HEMOGLOBIN 27.4 pg (29.0-33.0); MEAN CORPUSCULAR HGB CONC 31.6 g/dl (32.0-37.0); MEAN CORPUSCULAR VOLUME 86.7 fl (82.0-101.0); MEAN PLATELET VOLUME 10.9 fl (7.4-10.4); MONOCYTE # 0.4 10^3/ul (0.3-0.9); MONOCYTES % 6.4 % (0.0-11.0); NEUTROPHIL # 4.9 10^3/ul (1.6-7.5); NEUTROPHILS % 74.6 % (39.0-77.0); PLATELET COUNT 226 10^3/UL (140-415); RED BLOOD COUNT 3.39 10^6/ul (4.20-5.40); RED CELL DISTRIBUTION WIDTH 13.6 % (11.5-14.5)
[2019-01-04 02:38] LABS: WHITE BLOOD COUNT 6.6 10^3/ul (4.8-10.8)
[2019-01-04] MEDS ORDERED: AMLODIPINE 5 MG TAB (02:44)
[2019-01-04] MEDS: morphine 2 MG INJ IV (02:48)
[2019-01-04] MEDS: AMLODIPINE 5 MG TAB PO (02:56)
[2019-01-04 03:01] LABS: CREATINE KINASE 40 IU/L (23-200)
[2019-01-04 03:03] LABS: ALANINE AMINOTRANSFERASE 27 IU/L (13-69); ALBUMIN 2.6 g/dl (3.3-4.9); ALBUMIN/GLOBULIN RATIO 0.92; ALKALINE PHOSPHATASE 196 IU/L (42-121); ANION GAP 5 (5-13); ASPARTATE AMINO TRANSFERASE 23 IU/L (15-46); BLOOD UREA NITROGEN 28 mg/dl (7-20); CALCIUM 8.5 mg/dl (8.4-10.2); CARBON DIOXIDE 30 mmol/L (21-31); CHLORIDE 105 mmol/L (97-110); CREATININE 1.07 mg/dl (0.44-1.00); Estimated GFR 53 mL/min (>60); GLUCOSE 190 mg/dl (70-220); POTASSIUM 4.6 mmol/L (3.5-5.1); SODIUM 140 mmol/L (135-144); TOTAL PROTEIN 5.4 g/dl (6.1-8.1)
[2019-01-04 03:12] LABS: CK INDEX 2.7; CK-MB 1.08 ng/ml (0.0-2.4); TROPONIN-I < 0.012 ng/ml (0.000-0.120)
[2019-01-04] MEDS: VANCOMYCIN 1 GM 250 ML IVPB (04:30)
[2019-01-04] MEDS: AZTREONAM 1 GM/NS (PMX) 50 ML IVPB ×2 (06:38→14:51)
[2019-01-04] MEDS: INSULIN ASPART [NOVOLOG] 3 ML PEN SC ×3 (08:00→17:30)
[2019-01-04] MEDS: POLYETHYLENE GLYCOL 17 GM PACKET PO (08:41)
[2019-01-04] MEDS: ZINC SULFATE 220 MG CAP PO (08:41)
[2019-01-04] MEDS: BUPROPION (SR) 150 MG TAB PO (08:41)
[2019-01-04] MEDS: CLOPIDOGREL 75 MG TAB PO (08:41)
[2019-01-04] MEDS: SUCRALFATE 1 GM TAB PO ×3 (08:41→17:29)
[2019-01-04] MEDS: LISINOPRIL 20 MG TAB PO (08:42)
[2019-01-04] MEDS: ASCORBIC ACID 500 MG TAB PO (08:42)
[2019-01-04] MEDS: ASPIRIN (EC) 81 MG TAB PO (08:42)
[2019-01-04] MEDS: NYSTATIN 30 GM POWDER BTL TOP (08:43)
[2019-01-04] MEDS: ENOXAPARIN 40 MG/0.4 ML SYG SC (08:47)
[2019-01-04 09:25] LABS: CREATINE KINASE 36 IU/L (23-200)
[2019-01-04 09:37] LABS: CK INDEX 3.4; CK-MB 1.21 ng/ml (0.0-2.4); TROPONIN-I < 0.012 ng/ml (0.000-0.120)
[2019-01-04 09:47] LABS: BLOOD UREA NITROGEN 28 mg/dl (7-20)
[2019-01-04 09:47] LABS: CREATININE 1.01 mg/dl (0.44-1.00)
[2019-01-04] MEDS: VORICONAZOLE 200 MG TAB PO (14:51)
[2019-01-04] MEDS ORDERED: VORICONAZOLE 200 MG TAB PO (21:00)
== END 2019-01-04 20:40 | DRG 623 ==
LOC: PP2 20:14 → E/R 12:14
PROC: 0QBP0ZZ Excision of Left Metatarsal, Open Approach (ICD-10-PCS; principal; 2018-12-25 16:30)
PROC: 0HXNXZZ Transfer Left Foot Skin, External Approach (ICD-10-PCS; 2018-12-25 16:30)
PROC: 0HRNXK3 Replacement of Left Foot Skin with Nonautologous Tissue Substitute, Full Thickness, External Approach (ICD-10-PCS; 2018-12-25 16:30)
PROC: 0HRNXK3 Replacement of Left Foot Skin with Nonautologous Tissue Substitute, Full Thickness, External Approach (ICD-10-PCS; 2018-12-25 16:30)
PROC: 0MBT0ZZ Excision of Left Foot Bursa and Ligament, Open Approach (ICD-10-PCS; 2018-12-25 16:30)
PROC: 0HXNXZZ Transfer Left Foot Skin, External Approach (ICD-10-PCS; 2018-12-25 16:30)
PROC: 0QBP0ZX Excision of Left Metatarsal, Open Approach, Diagnostic (ICD-10-PCS; 2018-12-25 16:30)
DX: E11.69 Type 2 diabetes mellitus with other specified complication (principal); M86.672 Other chronic osteomyelitis, left ankle and foot; L97.426 Non-pressure chronic ulcer of left heel and midfoot with bone involvement without evidence of necrosis; E11.621 Type 2 diabetes mellitus with foot ulcer; E11.610 Type 2 diabetes mellitus with diabetic neuropathic arthropathy; E11.42 Type 2 diabetes mellitus with diabetic polyneuropathy; E11.51 Type 2 diabetes mellitus with diabetic peripheral angiopathy without gangrene; I11.0 Hypertensive heart disease with heart failure; I50.9 Heart failure, unspecified; E78.5 Hyperlipidemia, unspecified; D63.8 Anemia in other chronic diseases classified elsewhere; D50.9 Iron deficiency anemia, unspecified; J44.9 Chronic obstructive pulmonary disease, unspecified; N28.9 Disorder of kidney and ureter, unspecified; R11.0 Nausea; Z98.62 Peripheral vascular angioplasty status; Z79.02 Long term (current) use of antithrombotics/antiplatelets; Z79.82 Long term (current) use of aspirin; Z79.4 Long term (current) use of insulin
CPT/HCPCS: 36415; 71045; 73630; 73630-LT; 80048; 80053; 80202; 81001; 82550; 82553; 82565; 82962; 83036; 83690; 83735; 84100; 84484; 84520; 85025; 85651; 86140; 87070; 87075; 87081; 87102; 87116; 88304; 88311; 93005; 96374; 97110; 97162; 97530; 99285-25

== ENCOUNTER 2019-02-11 11:54 | Emergency (ER) | payer OTHER ==
[2019-02-11 13:06] LABS: ADD MAN DIFF? NO
[2019-02-11 13:08] LABS: WHITE BLOOD COUNT 6.2 10^3/ul (4.8-10.8)
[2019-02-11 13:08] LABS: BASOPHILS % 0.5 % (0.0-2.0); EOSINOPHILS # 0.1 10^3/ul (0.0-0.5); EOSINOPHILS % 0.8 % (0.0-7.0); HEMATOCRIT 35.3 % (37.0-47.0); HEMOGLOBIN 11.4 g/dl (12.0-16.0); LYMPHOCYTES # 0.9 10^3/ul (0.8-2.9); LYMPHOCYTES % 15.1 % (15.0-51.0); MEAN CORPUSCULAR HGB CONC 32.3 g/dl (32.0-37.0); MEAN CORPUSCULAR VOLUME 83.6 fl (82.0-101.0); MONOCYTE # 0.5 10^3/ul (0.3-0.9); MONOCYTES % 8.2 % (0.0-11.0); NEUTROPHIL # 4.7 10^3/ul (1.6-7.5); NEUTROPHILS % 74.9 % (39.0-77.0); PLATELET COUNT 191 10^3/UL (140-415); RED BLOOD COUNT 4.22 10^6/ul (4.20-5.40); RED CELL DISTRIBUTION WIDTH 13.4 % (11.5-14.5)
[2019-02-11] MEDS: ONDANSETRON 4 MG INJ IV (13:16)
[2019-02-11] MEDS: SOD CHLORIDE 0.9% 1,000 ML IV (13:16)
[2019-02-11 13:26] LABS: ALANINE AMINOTRANSFERASE 12 IU/L (13-69); ALBUMIN 3.3 g/dl (3.3-4.9); ALBUMIN/GLOBULIN RATIO 0.97; ALKALINE PHOSPHATASE 137 IU/L (42-121); ANION GAP 9 (5-13); ASPARTATE AMINO TRANSFERASE 19 IU/L (15-46); BILIRUBIN,INDIRECT 0.4 mg/dl (0-1.1); BILIRUBIN,TOTAL 0.4 mg/dl (0.2-1.3); BLOOD UREA NITROGEN 16 mg/dl (7-20); CALCIUM 8.7 mg/dl (8.4-10.2); CARBON DIOXIDE 32 mmol/L (21-31); CHLORIDE 100 mmol/L (97-110); CREATININE 1.55 mg/dl (0.44-1.00); Estimated GFR 35 mL/min (>60); GLUCOSE 90 mg/dl (70-220); LIPASE 12 U/L (23-300); SODIUM 141 mmol/L (135-144); TOTAL PROTEIN 6.7 g/dl (6.1-8.1)
[2019-02-11 13:29] LABS: POTASSIUM 2.6 mmol/L (3.5-5.1)
[2019-02-11 13:37] LABS: TROPONIN-I 0.035 ng/ml (0.000-0.120)
[2019-02-11] MEDS: POTASSIUM CHLORIDE 50 ML IVPB (14:02)
[2019-02-11] MEDS: POTASSIUM CHLORIDE (SR) 20 MEQ TAB PO (14:02)
== END 2019-02-11 16:29 | disposition home or self-care (01) ==
LOC: E/R 11:54
DX: E87.6 Hypokalemia (principal); I11.0 Hypertensive heart disease with heart failure; I50.9 Heart failure, unspecified; J44.9 Chronic obstructive pulmonary disease, unspecified; E11.9 Type 2 diabetes mellitus without complications; Z79.82 Long term (current) use of aspirin; Z79.4 Long term (current) use of insulin; Z79.01 Long term (current) use of anticoagulants
CPT/HCPCS: 36415; 80053; 83690; 84484; 85025; 96374; 96375; 99284-25

== ENCOUNTER 2019-02-18 19:01 | Inpatient (IN) | payer OTHER ==
[2019-02-18 19:59] LABS: ADD MAN DIFF? NO
[2019-02-18 20:02] LABS: BASOPHILS % 0.3 % (0.0-2.0); EOSINOPHILS # 0.1 10^3/ul (0.0-0.5); EOSINOPHILS % 1.8 % (0.0-7.0); HEMATOCRIT 32.9 % (37.0-47.0); HEMOGLOBIN 10.6 g/dl (12.0-16.0); LYMPHOCYTES # 1.4 10^3/ul (0.8-2.9); LYMPHOCYTES % 20.3 % (15.0-51.0); MEAN CORPUSCULAR HGB CONC 32.2 g/dl (32.0-37.0); MEAN CORPUSCULAR VOLUME 83.9 fl (82.0-101.0); MEAN PLATELET VOLUME 10.9 fl (7.4-10.4); MONOCYTE # 0.6 10^3/ul (0.3-0.9); MONOCYTES % 7.8 % (0.0-11.0); NEUTROPHIL # 4.9 10^3/ul (1.6-7.5); NEUTROPHILS % 69.4 % (39.0-77.0); PLATELET COUNT 353 10^3/UL (140-415); RED BLOOD COUNT 3.92 10^6/ul (4.20-5.40); RED CELL DISTRIBUTION WIDTH 13.4 % (11.5-14.5)
[2019-02-18] MEDS: SOD CHLORIDE 0.9% 1,000 ML IV (20:11)
[2019-02-18 20:24] LABS: ANION GAP 5 (5-13); BLOOD UREA NITROGEN 27 mg/dl (7-20); C-REACTIVE PROTEIN 4.7 mg/dl (0.0-0.9); CARBON DIOXIDE 22 mmol/L (21-31); CHLORIDE 106 mmol/L (97-110); CREATININE 1.87 mg/dl (0.44-1.00); Estimated GFR 28 mL/min (>60); POTASSIUM 4.2 mmol/L (3.5-5.1); SODIUM 133 mmol/L (135-144)
[2019-02-18 20:26] LABS: GLUCOSE 517 mg/dl (70-220)
[2019-02-18] MEDS: PIPER-TAZO 3.375 GM IV (PMX) 100 ML IVPB (20:54)
[2019-02-18] MEDS: INSULIN LISPRO 100 UNIT/ML VIAL SC (21:02)
[2019-02-18 21:08] LABS: ERYTHROCYTE SEDIMENTATION RATE 54 mm/Hr (0-30)
[2019-02-18 21:10] LABS: INR 0.99; PARTIAL THROMBOPLASTIN TIME 30.1 Sec (23.0-35.0); PROTIME 13.2 Sec (11.9-14.9)
[2019-02-18] MEDS: CLINDAMYCIN 900 MG/D5W (PMX) 50 ML IVPB (21:49)
[2019-02-18] MEDS ORDERED: ONDANSETRON 4 MG INJ IV (22:00)
[2019-02-18] MEDS ORDERED: ACETAMINOPHEN 325 MG TAB PO ×2 (22:00→22:30)
[2019-02-18] MEDS: VANCOMYCIN 1 GM (PMX) 250 ML IVPB (22:21)
[2019-02-18] MEDS ORDERED: ONDANSETRON 4 MG TAB PO (22:30)
[2019-02-18] MEDS ORDERED: NACL 0.9% 3 ML SYG IV (22:30)
[2019-02-18] MEDS ORDERED: GLUCOSE GEL 15 GRAM TUBE BUCCAL (23:00)
[2019-02-18] MEDS ORDERED: GLUCOSE GEL 15 GRAM TUBE PO ×2 (23:00)
[2019-02-18] MEDS ORDERED: CALCIUM GLUCONATE 10% 2 GM in DEXTROSE 5% 100 ML IVPB (23:00)
[2019-02-18] MEDS ORDERED: GLUCAGON 1 MG INJ IM (23:00)
[2019-02-18] MEDS ORDERED: DEXTROSE 50% 50 ML SYRINGE IV ×2 (23:00)
[2019-02-18] MEDS: BUPROPION (SR) 150 MG TAB PO (23:50)
[2019-02-18] MEDS: HYDROCODONE/APAP (5/325) TAB PO (23:53)
[2019-02-19] MEDS: INSULIN GLARGINE [LANTus] (100 UNITS/ML) SYG SC ×2 (00:13→21:59)
[2019-02-19] MEDS: INSULIN ASPART [NOVOLOG] 3 ML PEN SC ×8 (00:13→21:00)
[2019-02-19] MEDS ORDERED: PENDING SANTYL ORDER FOR WOUND CARE XX (01:00)
[2019-02-19] MEDS: ACCU-CHEK XX (02:40)
[2019-02-19] MEDS: SUCRALFATE 1 GM TAB PO ×4 (07:29→21:56)
[2019-02-19 07:32] LABS: ADD MAN DIFF? NO
[2019-02-19 07:41] LABS: WHITE BLOOD COUNT 7.9 10^3/ul (4.8-10.8)
[2019-02-19 07:41] LABS: BASOPHILS % 0.4 % (0.0-2.0); EOSINOPHILS # 0.2 10^3/ul (0.0-0.5); EOSINOPHILS % 2.3 % (0.0-7.0); HEMATOCRIT 29.9 % (37.0-47.0); HEMOGLOBIN 9.6 g/dl (12.0-16.0); LYMPHOCYTES # 1.5 10^3/ul (0.8-2.9); LYMPHOCYTES % 19.6 % (15.0-51.0); MEAN CORPUSCULAR HEMOGLOBIN 27.5 pg (29.0-33.0); MEAN CORPUSCULAR HGB CONC 32.1 g/dl (32.0-37.0); MEAN CORPUSCULAR VOLUME 85.7 fl (82.0-101.0); MEAN PLATELET VOLUME 11.2 fl (7.4-10.4); MONOCYTE # 0.7 10^3/ul (0.3-0.9); MONOCYTES % 8.6 % (0.0-11.0); NEUTROPHIL # 5.4 10^3/ul (1.6-7.5); NEUTROPHILS % 68.5 % (39.0-77.0); PLATELET COUNT 294 10^3/UL (140-415); RED BLOOD COUNT 3.49 10^6/ul (4.20-5.40); RED CELL DISTRIBUTION WIDTH 13.6 % (11.5-14.5)
[2019-02-19 07:57] LABS: ALANINE AMINOTRANSFERASE 10 IU/L (13-69); ALBUMIN 2.5 g/dl (3.3-4.9); ALBUMIN/GLOBULIN RATIO 0.83; ALKALINE PHOSPHATASE 137 IU/L (42-121); ANION GAP 6 (5-13); ASPARTATE AMINO TRANSFERASE 13 IU/L (15-46); BILIRUBIN,INDIRECT 0.3 mg/dl (0-1.1); BILIRUBIN,TOTAL 0.3 mg/dl (0.2-1.3); BLOOD UREA NITROGEN 24 mg/dl (7-20); CARBON DIOXIDE 20 mmol/L (21-31); CHLORIDE 113 mmol/L (97-110); CREATININE 1.83 mg/dl (0.44-1.00); Estimated GFR 29 mL/min (>60); GLUCOSE 122 mg/dl (70-220); MAGNESIUM 1.9 mg/dl (1.7-2.5); PHOSPHORUS 5.1 mg/dl (2.5-4.9); POTASSIUM 4.2 mmol/L (3.5-5.1); SODIUM 139 mmol/L (135-144); TOTAL PROTEIN 5.5 g/dl (6.1-8.1)
[2019-02-19] MEDS ORDERED: PIPER-TAZO 3.375 GM IV (PMX) 100 ML IVPB (09:00)
[2019-02-19] MEDS: POLYETHYLENE GLYCOL 17 GM PACKET PO ×2 (09:00→22:05)
[2019-02-19] MEDS ORDERED: VANCOMYCIN IV PER PHARMACY XX (09:00)
[2019-02-19] MEDS: HEPARIN 5,000 UNIT/1 ML VIAL SC ×2 (09:28→21:58)
[2019-02-19] MEDS: CLOPIDOGREL 75 MG TAB PO (09:34)
[2019-02-19] MEDS: BUPROPION (SR) 150 MG TAB PO ×2 (09:34→21:56)
[2019-02-19] MEDS: ASCORBIC ACID 500 MG TAB PO (09:35)
[2019-02-19] MEDS: ZINC SULFATE 220 MG CAP PO (09:36)
[2019-02-19] MEDS: LISINOPRIL 20 MG TAB PO (09:36)
[2019-02-19] MEDS: AMLODIPINE 10 MG TAB PO (09:36)
[2019-02-19] MEDS: ASPIRIN 81 MG TAB PO (09:36)
[2019-02-19] MEDS: FAMOTIDINE 20 MG TAB PO (09:36)
[2019-02-19] MEDS: PIPER-TAZO 2.25 GM/NS 50 ML IVPB ×3 (11:30→17:57)
[2019-02-19] MEDS ORDERED: DAKINS 0.0125%(1/40) 473 ML SOLUTION TP (14:30)
[2019-02-19] MEDS: COLLAGENASE 5 GM (UD JAR) TOP (17:02)
[2019-02-19] MEDS: VANCOMYCIN 750 MG (PMX) 250 ML IVPB (17:58)
[2019-02-19] MEDS: ATORVASTATIN 40 MG TAB PO (21:56)
[2019-02-19] MEDS: MONTELUKAST 10 MG TAB PO (21:56)
[2019-02-20] MEDS: PIPER-TAZO 2.25 GM/NS 50 ML IVPB ×3 (00:27→11:08)
[2019-02-20] MEDS: ACCU-CHEK XX (02:00)
[2019-02-20 04:58] LABS: ADD UMIC YES; UR ASCORBIC ACID 20 mg/dL (NEGATIVE); UR BACTERIA FEW /HPF (NONE SEEN); UR BILIRUBIN (Dip) NEGATIVE (NEGATIVE); UR BLOOD (Dip) NEGATIVE (NEGATIVE); UR CLARITY CLOUDY (CLEAR); UR COLOR YELLOW (YELLOW); UR GLUCOSE (Dip) 2+ mg/dL (NEGATIVE); UR KETONES (Dip) NEGATIVE (NEGATIVE); UR LEUKOCYTE ESTERASE (Dip) 1+ Leu/ul (NEGATIVE); UR MUCUS FEW /HPF (NONE SEEN); UR NITRITE (Dip) POSITIVE (NEGATIVE); UR RBC 5 /HPF (0-5); UR SPECIFIC GRAVITY (Dip) 1.012 (1.003-1.030); UR SQUAMOUS EPITHELIAL CELL FEW /HPF (FEW); UR TOTAL PROTEIN (Dip) 2+ mg/dl (NEGATIVE); UR UROBILINOGEN (Dip) NEGATIVE (NEGATIVE); UR WBC 39 /HPF (0-5)
[2019-02-20 04:59] LABS: SODIUM,URINE RANDOM 67 mmol/L (30-90)
[2019-02-20 04:59] LABS: CREATININE,URINE RANDOM 40.62 mg/dl (20-320)
[2019-02-20 06:07] LABS: ADD MAN DIFF? NO
[2019-02-20 06:11] LABS: BASOPHILS % 0.6 % (0.0-2.0); EOSINOPHILS # 0.1 10^3/ul (0.0-0.5); EOSINOPHILS % 1.8 % (0.0-7.0); HEMATOCRIT 28.7 % (37.0-47.0); HEMOGLOBIN 9.2 g/dl (12.0-16.0); LYMPHOCYTES # 1.4 10^3/ul (0.8-2.9); LYMPHOCYTES % 20.9 % (15.0-51.0); MEAN CORPUSCULAR HEMOGLOBIN 27.1 pg (29.0-33.0); MEAN CORPUSCULAR HGB CONC 32.1 g/dl (32.0-37.0); MEAN CORPUSCULAR VOLUME 84.4 fl (82.0-101.0); MEAN PLATELET VOLUME 10.7 fl (7.4-10.4); MONOCYTE # 0.5 10^3/ul (0.3-0.9); MONOCYTES % 7.9 % (0.0-11.0); NEUTROPHIL # 4.7 10^3/ul (1.6-7.5); NEUTROPHILS % 68.2 % (39.0-77.0); PLATELET COUNT 315 10^3/UL (140-415); RED CELL DISTRIBUTION WIDTH 13.9 % (11.5-14.5)
[2019-02-20 06:11] LABS: WHITE BLOOD COUNT 6.8 10^3/ul (4.8-10.8)
[2019-02-20 06:33] LABS: IRON 75 ug/dl (35-150)
[2019-02-20 06:42] LABS: % IRON SATURATION 44 % SAT (22-52); TOTAL IRON BINDING CAPACITY 172 ug/dl (241-421)
[2019-02-20 06:43] LABS: ANION GAP 8 (5-13); BLOOD UREA NITROGEN 25 mg/dl (7-20); CALCIUM 8.6 mg/dl (8.4-10.2); CARBON DIOXIDE 20 mmol/L (21-31); CHLORIDE 111 mmol/L (97-110); CREATININE 2.01 mg/dl (0.44-1.00); Estimated GFR 26 mL/min (>60); GLUCOSE 71 mg/dl (70-220); MAGNESIUM 1.9 mg/dl (1.7-2.5); PHOSPHORUS 4.8 mg/dl (2.5-4.9); POTASSIUM 3.6 mmol/L (3.5-5.1); SODIUM 139 mmol/L (135-144)
[2019-02-20] MEDS: SUCRALFATE 1 GM TAB PO ×4 (06:46→20:25)
[2019-02-20] MEDS: INSULIN ASPART [NOVOLOG] 3 ML PEN SC ×7 (08:00→20:27)
[2019-02-20] MEDS: COLLAGENASE 5 GM (UD JAR) TOP ×2 (08:38→08:39)
[2019-02-20] MEDS: BUPROPION (SR) 150 MG TAB PO ×2 (08:39→20:25)
[2019-02-20] MEDS: FAMOTIDINE 20 MG TAB PO (08:39)
[2019-02-20] MEDS: ASPIRIN 81 MG TAB PO (08:39)
[2019-02-20] MEDS: CLOPIDOGREL 75 MG TAB PO (08:39)
[2019-02-20] MEDS: ASCORBIC ACID 500 MG TAB PO (08:39)
[2019-02-20] MEDS: DAKINS 0.0125%(1/40) 473 ML SOLUTION TP ×2 (08:41→19:04)
[2019-02-20] MEDS: HEPARIN 5,000 UNIT/1 ML VIAL SC ×2 (08:41→20:24)
[2019-02-20] MEDS: AMLODIPINE 10 MG TAB PO (08:42)
[2019-02-20] MEDS: ZINC SULFATE 220 MG CAP PO (08:43)
[2019-02-20] MEDS: POLYETHYLENE GLYCOL 17 GM PACKET PO ×2 (08:43→20:26)
[2019-02-20] MEDS: metroNIDAZOLE 500 MG/NS (PMX) 100 ML IVPB ×2 (13:27→21:56)
[2019-02-20] MEDS: AZTREONAM 1 GM/NS (PMX) 50 ML IVPB (17:40)
[2019-02-20 17:49] LABS: VANCOMYCIN,TROUGH 15.7 ug/ml (10.0-20.0)
[2019-02-20] MEDS ORDERED: CEFEPIME 1GM/50 ML (PMX) 50 ML IVPB (18:00)
[2019-02-20] MEDS: VANCOMYCIN 750 MG (PMX) 250 ML IVPB (18:32)
[2019-02-20] MEDS: INSULIN GLARGINE [LANTus] (100 UNITS/ML) SYG SC (20:24)
[2019-02-20] MEDS: MONTELUKAST 10 MG TAB PO (20:25)
[2019-02-20] MEDS: ATORVASTATIN 40 MG TAB PO (20:25)
[2019-02-20] MEDS ORDERED: GENTAMICIN 0.1% 15 GM OINT TOP (21:00)
[2019-02-20] MEDS: GENTAMICIN 0.1% CREAM 15GM TUBE TOP (21:57)
[2019-02-21] MEDS: VANCOMYCIN HCL 250 MG/5ML POSYG PO ×4 (00:24→17:24)
[2019-02-21] MEDS: AZTREONAM 1 GM/NS (PMX) 50 ML IVPB ×2 (01:17→10:40)
[2019-02-21] MEDS: HYDROCODONE/APAP (5/325) TAB PO (01:26)
[2019-02-21] MEDS: ACCU-CHEK XX (01:35)
[2019-02-21] MEDS: hydrALAzine 20 MG INJ IV (02:03)
[2019-02-21] MEDS: metroNIDAZOLE 500 MG/NS (PMX) 100 ML IVPB ×3 (05:29→21:08)
[2019-02-21 07:01] LABS: ADD MAN DIFF? NO
[2019-02-21 07:04] LABS: BASOPHILS % 0.3 % (0.0-2.0); EOSINOPHILS # 0.1 10^3/ul (0.0-0.5); EOSINOPHILS % 2.3 % (0.0-7.0); HEMATOCRIT 28.5 % (37.0-47.0); HEMOGLOBIN 9.4 g/dl (12.0-16.0); LYMPHOCYTES # 1.5 10^3/ul (0.8-2.9); LYMPHOCYTES % 26.7 % (15.0-51.0); MEAN CORPUSCULAR HEMOGLOBIN 27.2 pg (29.0-33.0); MEAN CORPUSCULAR VOLUME 82.6 fl (82.0-101.0); MEAN PLATELET VOLUME 10.6 fl (7.4-10.4); MONOCYTE # 0.4 10^3/ul (0.3-0.9); MONOCYTES % 7.3 % (0.0-11.0); NEUTROPHIL # 3.6 10^3/ul (1.6-7.5); NEUTROPHILS % 62.7 % (39.0-77.0); PLATELET COUNT 331 10^3/UL (140-415); RED BLOOD COUNT 3.45 10^6/ul (4.20-5.40); RED CELL DISTRIBUTION WIDTH 13.7 % (11.5-14.5)
[2019-02-21 07:04] LABS: WHITE BLOOD COUNT 5.8 10^3/ul (4.8-10.8)
[2019-02-21 08:00] LABS: ANION GAP 5 (5-13); BLOOD UREA NITROGEN 24 mg/dl (7-20); CALCIUM 8.6 mg/dl (8.4-10.2); CARBON DIOXIDE 21 mmol/L (21-31); CHLORIDE 113 mmol/L (97-110); CREATININE 1.72 mg/dl (0.44-1.00); Estimated GFR 31 mL/min (>60); GLUCOSE 63 mg/dl (70-220); MAGNESIUM 1.9 mg/dl (1.7-2.5); PHOSPHORUS 4.3 mg/dl (2.5-4.9); POTASSIUM 3.5 mmol/L (3.5-5.1); SODIUM 139 mmol/L (135-144)
[2019-02-21] MEDS: INSULIN ASPART [NOVOLOG] 3 ML PEN SC ×7 (08:00→21:00)
[2019-02-21] MEDS: SUCRALFATE 1 GM TAB PO ×4 (08:11→21:08)
[2019-02-21] MEDS: ASCORBIC ACID 500 MG TAB PO (08:16)
[2019-02-21] MEDS: BUPROPION (SR) 150 MG TAB PO ×2 (08:17→21:08)
[2019-02-21] MEDS: AMLODIPINE 10 MG TAB PO (08:17)
[2019-02-21] MEDS: CLOPIDOGREL 75 MG TAB PO (08:17)
[2019-02-21] MEDS: POLYETHYLENE GLYCOL 17 GM PACKET PO ×2 (08:18→21:00)
[2019-02-21] MEDS: FAMOTIDINE 20 MG TAB PO (08:18)
[2019-02-21] MEDS: ASPIRIN 81 MG TAB PO (08:18)
[2019-02-21] MEDS: DAKINS 0.0125%(1/40) 473 ML SOLUTION TP ×2 (10:41)
[2019-02-21] MEDS: COLLAGENASE 5 GM (UD JAR) TOP ×2 (10:42)
[2019-02-21] MEDS: GENTAMICIN 0.1% CREAM 15GM TUBE TOP ×3 (10:43→21:36)
[2019-02-21] MEDS: HEPARIN 5,000 UNIT/1 ML VIAL SC ×2 (10:44→21:11)
[2019-02-21] MEDS: ZINC SULFATE 220 MG CAP PO (10:46)
[2019-02-21] MEDS ORDERED: GENTAMICIN IV PER PHARMACY XX (16:30)
[2019-02-21] MEDS: ATORVASTATIN 40 MG TAB PO (21:07)
[2019-02-21] MEDS: MONTELUKAST 10 MG TAB PO (21:07)
[2019-02-21] MEDS: INSULIN GLARGINE [LANTus] (100 UNITS/ML) SYG SC (21:33)
[2019-02-21] MEDS: GENTAMICIN 290 MG in SOD CHLORIDE 0.9% 100 ML IVPB (22:30)
[2019-02-22] MEDS: VANCOMYCIN HCL 250 MG/5ML POSYG PO ×4 (00:49→18:04)
[2019-02-22] MEDS: ACCU-CHEK XX (00:50)
[2019-02-22] MEDS: metroNIDAZOLE 500 MG/NS (PMX) 100 ML IVPB ×3 (05:47→21:59)
[2019-02-22 05:54] LABS: ADD MAN DIFF? NO
[2019-02-22 06:03] LABS: BASOPHILS % 0.4 % (0.0-2.0); EOSINOPHILS # 0.1 10^3/ul (0.0-0.5); EOSINOPHILS % 1.5 % (0.0-7.0); HEMATOCRIT 29.2 % (37.0-47.0); HEMOGLOBIN 9.5 g/dl (12.0-16.0); LYMPHOCYTES # 1.7 10^3/ul (0.8-2.9); LYMPHOCYTES % 25.6 % (15.0-51.0); MEAN CORPUSCULAR HEMOGLOBIN 27.3 pg (29.0-33.0); MEAN CORPUSCULAR HGB CONC 32.5 g/dl (32.0-37.0); MEAN CORPUSCULAR VOLUME 83.9 fl (82.0-101.0); MEAN PLATELET VOLUME 10.3 fl (7.4-10.4); MONOCYTE # 0.5 10^3/ul (0.3-0.9); MONOCYTES % 7.1 % (0.0-11.0); NEUTROPHIL # 4.3 10^3/ul (1.6-7.5); NEUTROPHILS % 64.7 % (39.0-77.0); PLATELET COUNT 351 10^3/UL (140-415); RED BLOOD COUNT 3.48 10^6/ul (4.20-5.40); RED CELL DISTRIBUTION WIDTH 13.5 % (11.5-14.5)
[2019-02-22 06:03] LABS: WHITE BLOOD COUNT 6.7 10^3/ul (4.8-10.8)
[2019-02-22 06:36] LABS: ANION GAP 8 (5-13); BLOOD UREA NITROGEN 27 mg/dl (7-20); CALCIUM 8.6 mg/dl (8.4-10.2); CARBON DIOXIDE 23 mmol/L (21-31); CHLORIDE 109 mmol/L (97-110); Estimated GFR 33 mL/min (>60); GLUCOSE 82 mg/dl (70-220); MAGNESIUM 1.9 mg/dl (1.7-2.5); PHOSPHORUS 4.7 mg/dl (2.5-4.9); POTASSIUM 3.8 mmol/L (3.5-5.1); SODIUM 140 mmol/L (135-144)
[2019-02-22 06:41] LABS: GENTAMICIN,RANDOM 11.4 ug/ml
[2019-02-22] MEDS: SUCRALFATE 1 GM TAB PO ×4 (08:13→21:58)
[2019-02-22] MEDS: INSULIN ASPART [NOVOLOG] 3 ML PEN SC ×7 (08:15→21:00)
[2019-02-22] MEDS: COLLAGENASE 5 GM (UD JAR) TOP ×2 (10:53)
[2019-02-22] MEDS: BUPROPION (SR) 150 MG TAB PO ×2 (10:54→21:58)
[2019-02-22] MEDS: ASPIRIN 81 MG TAB PO (10:54)
[2019-02-22] MEDS: ASCORBIC ACID 500 MG TAB PO (10:54)
[2019-02-22] MEDS: CLOPIDOGREL 75 MG TAB PO (10:54)
[2019-02-22] MEDS: POLYETHYLENE GLYCOL 17 GM PACKET PO (10:55)
[2019-02-22] MEDS: AMLODIPINE 10 MG TAB PO (10:55)
[2019-02-22] MEDS: ZINC SULFATE 220 MG CAP PO (10:55)
[2019-02-22] MEDS: FAMOTIDINE 20 MG TAB PO (10:56)
[2019-02-22] MEDS: GENTAMICIN 0.1% CREAM 15GM TUBE TOP ×3 (11:00→22:08)
[2019-02-22] MEDS: HEPARIN 5,000 UNIT/1 ML VIAL SC ×2 (11:00→21:57)
[2019-02-22] MEDS: DAKINS 0.0125%(1/40) 473 ML SOLUTION TP ×2 (11:01)
[2019-02-22 16:21] LABS: CREATININE, RANDOM URINE 41 mg/dL (20-275); MICROALBUMIN/CREATININE RATIO 2024 (<30)
[2019-02-22] MEDS ORDERED: POLYETHYLENE GLYCOL 17 GM PACKET PO (16:30)
[2019-02-22] MEDS: INSULIN GLARGINE [LANTus] (100 UNITS/ML) SYG SC (21:56)
[2019-02-22] MEDS: MONTELUKAST 10 MG TAB PO (21:58)
[2019-02-22] MEDS: ATORVASTATIN 40 MG TAB PO (21:58)
[2019-02-23] MEDS: ACCU-CHEK XX (02:00)
[2019-02-23] MEDS: VANCOMYCIN HCL 250 MG/5ML POSYG PO ×4 (02:17→19:42)
[2019-02-23] MEDS: HYDROCODONE/APAP (5/325) TAB PO (04:54)
[2019-02-23] MEDS: metroNIDAZOLE 500 MG/NS (PMX) 100 ML IVPB ×3 (05:04→22:01)
[2019-02-23 05:52] LABS: ADD MAN DIFF? NO
[2019-02-23 05:57] LABS: BASOPHILS % 0.4 % (0.0-2.0); EOSINOPHILS # 0.1 10^3/ul (0.0-0.5); EOSINOPHILS % 1.2 % (0.0-7.0); HEMATOCRIT 28.5 % (37.0-47.0); HEMOGLOBIN 9.4 g/dl (12.0-16.0); LYMPHOCYTES # 1.8 10^3/ul (0.8-2.9); LYMPHOCYTES % 24.7 % (15.0-51.0); MEAN CORPUSCULAR HEMOGLOBIN 27.2 pg (29.0-33.0); MEAN CORPUSCULAR VOLUME 82.6 fl (82.0-101.0); MEAN PLATELET VOLUME 10.1 fl (7.4-10.4); MONOCYTE # 0.5 10^3/ul (0.3-0.9); MONOCYTES % 6.1 % (0.0-11.0); NEUTROPHIL # 4.9 10^3/ul (1.6-7.5); NEUTROPHILS % 66.9 % (39.0-77.0); PLATELET COUNT 330 10^3/UL (140-415); RED BLOOD COUNT 3.45 10^6/ul (4.20-5.40); RED CELL DISTRIBUTION WIDTH 13.9 % (11.5-14.5)
[2019-02-23 05:57] LABS: WHITE BLOOD COUNT 7.4 10^3/ul (4.8-10.8)
[2019-02-23 06:29] LABS: ANION GAP 7 (5-13); BLOOD UREA NITROGEN 31 mg/dl (7-20); CALCIUM 8.6 mg/dl (8.4-10.2); CARBON DIOXIDE 24 mmol/L (21-31); CHLORIDE 108 mmol/L (97-110); CREATININE 1.57 mg/dl (0.44-1.00); Estimated GFR 34 mL/min (>60); GLUCOSE 140 mg/dl (70-220); MAGNESIUM 1.9 mg/dl (1.7-2.5); PHOSPHORUS 4.2 mg/dl (2.5-4.9); POTASSIUM 3.9 mmol/L (3.5-5.1); SODIUM 139 mmol/L (135-144)
[2019-02-23] MEDS: INSULIN ASPART [NOVOLOG] 3 ML PEN SC ×7 (08:00→20:28)
[2019-02-23] MEDS: ZINC SULFATE 220 MG CAP PO (08:35)
[2019-02-23] MEDS: ASPIRIN 81 MG TAB PO (08:35)
[2019-02-23] MEDS: ASCORBIC ACID 500 MG TAB PO (08:35)
[2019-02-23] MEDS: CLOPIDOGREL 75 MG TAB PO (08:36)
[2019-02-23] MEDS: FAMOTIDINE 20 MG TAB PO (08:36)
[2019-02-23] MEDS: SUCRALFATE 1 GM TAB PO ×4 (08:36→22:01)
[2019-02-23] MEDS: BUPROPION (SR) 150 MG TAB PO ×2 (08:36→20:30)
[2019-02-23] MEDS: HEPARIN 5,000 UNIT/1 ML VIAL SC ×2 (08:37→20:28)
[2019-02-23] MEDS: COLLAGENASE 5 GM (UD JAR) TOP ×2 (08:49)
[2019-02-23] MEDS: GENTAMICIN 0.1% CREAM 15GM TUBE TOP ×3 (08:49→21:00)
[2019-02-23] MEDS: DAKINS 0.0125%(1/40) 473 ML SOLUTION TP ×2 (08:49)
[2019-02-23] MEDS: ONDANSETRON 4 MG INJ IV (13:11)
[2019-02-23] MEDS: AMLODIPINE 10 MG TAB PO (13:57)
[2019-02-23] MEDS: LISINOPRIL 20 MG TAB PO (13:57)
[2019-02-23] MEDS: LACTOBACILLUS RHAMNOSUS CAP PO (17:41)
[2019-02-23] MEDS: INSULIN GLARGINE [LANTus] (100 UNITS/ML) SYG SC (20:29)
[2019-02-23] MEDS: MONTELUKAST 10 MG TAB PO (20:30)
[2019-02-23] MEDS: ATORVASTATIN 40 MG TAB PO (20:30)
[2019-02-23] MEDS: GENTAMICIN 290 MG in SOD CHLORIDE 0.9% 100 ML IVPB (23:22)
[2019-02-24] MEDS: VANCOMYCIN HCL 250 MG/5ML POSYG PO ×4 (00:14→17:32)
[2019-02-24] MEDS: ACCU-CHEK XX (02:00)
[2019-02-24] MEDS: metroNIDAZOLE 500 MG/NS (PMX) 100 ML IVPB ×3 (05:55→21:55)
[2019-02-24 06:57] LABS: ADD MAN DIFF? NO
[2019-02-24 07:00] LABS: BASOPHILS % 0.4 % (0.0-2.0); EOSINOPHILS # 0.1 10^3/ul (0.0-0.5); EOSINOPHILS % 1.6 % (0.0-7.0); HEMATOCRIT 29.3 % (37.0-47.0); HEMOGLOBIN 9.5 g/dl (12.0-16.0); LYMPHOCYTES # 1.9 10^3/ul (0.8-2.9); LYMPHOCYTES % 23.9 % (15.0-51.0); MEAN CORPUSCULAR HEMOGLOBIN 27.5 pg (29.0-33.0); MEAN CORPUSCULAR HGB CONC 32.4 g/dl (32.0-37.0); MEAN CORPUSCULAR VOLUME 84.7 fl (82.0-101.0); MEAN PLATELET VOLUME 10.1 fl (7.4-10.4); MONOCYTE # 0.5 10^3/ul (0.3-0.9); MONOCYTES % 6.3 % (0.0-11.0); NEUTROPHIL # 5.3 10^3/ul (1.6-7.5); NEUTROPHILS % 67.2 % (39.0-77.0); PLATELET COUNT 326 10^3/UL (140-415); RED BLOOD COUNT 3.46 10^6/ul (4.20-5.40); RED CELL DISTRIBUTION WIDTH 13.9 % (11.5-14.5)
[2019-02-24] MEDS: INSULIN ASPART [NOVOLOG] 3 ML PEN SC ×7 (08:00→20:29)
[2019-02-24 08:15] LABS: ANION GAP 3 (5-13); BLOOD UREA NITROGEN 32 mg/dl (7-20); CARBON DIOXIDE 26 mmol/L (21-31); CHLORIDE 110 mmol/L (97-110); CREATININE 1.64 mg/dl (0.44-1.00); Estimated GFR 33 mL/min (>60); GLUCOSE 116 mg/dl (70-220); MAGNESIUM 1.9 mg/dl (1.7-2.5); PHOSPHORUS 4.2 mg/dl (2.5-4.9); POTASSIUM 3.9 mmol/L (3.5-5.1); SODIUM 139 mmol/L (135-144)
[2019-02-24] MEDS: HEPARIN 5,000 UNIT/1 ML VIAL SC ×2 (08:20→20:21)
[2019-02-24] MEDS: ASPIRIN 81 MG TAB PO (08:21)
[2019-02-24] MEDS: BUPROPION (SR) 150 MG TAB PO ×2 (08:21→20:16)
[2019-02-24] MEDS: ZINC SULFATE 220 MG CAP PO (08:21)
[2019-02-24] MEDS: ASCORBIC ACID 500 MG TAB PO (08:21)
[2019-02-24] MEDS: FAMOTIDINE 20 MG TAB PO (08:21)
[2019-02-24] MEDS: CLOPIDOGREL 75 MG TAB PO (08:21)
[2019-02-24] MEDS: SUCRALFATE 1 GM TAB PO ×4 (08:21→20:25)
[2019-02-24] MEDS: LACTOBACILLUS RHAMNOSUS CAP PO ×3 (08:21→17:32)
[2019-02-24] MEDS: LISINOPRIL 20 MG TAB PO ×3 (08:22→20:16)
[2019-02-24] MEDS: AMLODIPINE 10 MG TAB PO (08:22)
[2019-02-24] MEDS: DAKINS 0.0125%(1/40) 473 ML SOLUTION TP ×2 (08:23)
[2019-02-24] MEDS: GENTAMICIN 0.1% CREAM 15GM TUBE TOP ×3 (08:23→20:18)
[2019-02-24] MEDS: COLLAGENASE 5 GM (UD JAR) TOP ×2 (08:23)
[2019-02-24] MEDS: MONTELUKAST 10 MG TAB PO (20:16)
[2019-02-24] MEDS: ATORVASTATIN 40 MG TAB PO (20:17)
[2019-02-24] MEDS: INSULIN GLARGINE [LANTus] (100 UNITS/ML) SYG SC (20:32)
[2019-02-25] MEDS: VANCOMYCIN HCL 250 MG/5ML POSYG PO ×4 (00:16→17:39)
[2019-02-25] MEDS: ACCU-CHEK XX (01:10)
[2019-02-25] MEDS: metroNIDAZOLE 500 MG/NS (PMX) 100 ML IVPB ×2 (05:21→14:04)
[2019-02-25 06:32] LABS: ANION GAP 6 (5-13); BLOOD UREA NITROGEN 45 mg/dl (7-20); CALCIUM 8.9 mg/dl (8.4-10.2); CARBON DIOXIDE 26 mmol/L (21-31); CHLORIDE 107 mmol/L (97-110); CREATININE 1.64 mg/dl (0.44-1.00); Estimated GFR 33 mL/min (>60); GLUCOSE 145 mg/dl (70-220); MAGNESIUM 1.8 mg/dl (1.7-2.5); PHOSPHORUS 4.4 mg/dl (2.5-4.9); POTASSIUM 4.5 mmol/L (3.5-5.1); SODIUM 139 mmol/L (135-144)
[2019-02-25] MEDS: INSULIN ASPART [NOVOLOG] 3 ML PEN SC ×7 (08:19→21:00)
[2019-02-25] MEDS: ASPIRIN 81 MG TAB PO (08:20)
[2019-02-25] MEDS: HEPARIN 5,000 UNIT/1 ML VIAL SC ×2 (08:20→21:01)
[2019-02-25] MEDS: LACTOBACILLUS RHAMNOSUS CAP PO ×3 (08:21→17:39)
[2019-02-25] MEDS: ZINC SULFATE 220 MG CAP PO (08:21)
[2019-02-25] MEDS: ASCORBIC ACID 500 MG TAB PO (08:21)
[2019-02-25] MEDS: SUCRALFATE 1 GM TAB PO ×4 (08:24→21:00)
[2019-02-25] MEDS: CLOPIDOGREL 75 MG TAB PO (08:25)
[2019-02-25] MEDS: LISINOPRIL 20 MG TAB PO ×2 (08:26→21:00)
[2019-02-25] MEDS: BUPROPION (SR) 150 MG TAB PO ×2 (08:26→21:00)
[2019-02-25] MEDS: AMLODIPINE 10 MG TAB PO (08:26)
[2019-02-25] MEDS: FAMOTIDINE 20 MG TAB PO (08:26)
[2019-02-25] MEDS: GENTAMICIN 0.1% CREAM 15GM TUBE TOP ×3 (08:27→21:00)
[2019-02-25] MEDS: COLLAGENASE 5 GM (UD JAR) TOP ×2 (08:27)
[2019-02-25] MEDS: DAKINS 0.0125%(1/40) 473 ML SOLUTION TP ×2 (08:27)
[2019-02-25] MEDS: ATORVASTATIN 40 MG TAB PO (21:00)
[2019-02-25] MEDS: MONTELUKAST 10 MG TAB PO (21:00)
[2019-02-25] MEDS: INSULIN GLARGINE [LANTus] (100 UNITS/ML) SYG SC (21:01)
== END 2019-02-25 21:18 | disposition home health service (06) | DRG 628 ==
LOC: E/R 19:01 → PP2 21:39
PROC: 0QBP0ZZ Excision of Left Metatarsal, Open Approach (ICD-10-PCS; principal; 2019-02-22)
DX: E11.621 Type 2 diabetes mellitus with foot ulcer (principal); E43 Unspecified severe protein-calorie malnutrition; M86.672 Other chronic osteomyelitis, left ankle and foot; E87.1 Hypo-osmolality and hyponatremia; A04.72 Enterocolitis due to Clostridium difficile, not specified as recurrent; E87.2 Acidosis; I13.0 Hypertensive heart and chronic kidney disease with heart failure and stage 1 through stage 4 chronic kidney disease, or unspecified chronic kidney disease; E11.69 Type 2 diabetes mellitus with other specified complication; E11.65 Type 2 diabetes mellitus with hyperglycemia; N17.9 Acute kidney failure, unspecified; E11.22 Type 2 diabetes mellitus with diabetic chronic kidney disease; N18.9 Chronic kidney disease, unspecified; E11.42 Type 2 diabetes mellitus with diabetic polyneuropathy; Z68.21 Body mass index [BMI] 21.0-21.9, adult; E78.5 Hyperlipidemia, unspecified; E11.51 Type 2 diabetes mellitus with diabetic peripheral angiopathy without gangrene; I25.10 Atherosclerotic heart disease of native coronary artery without angina pectoris; Z79.02 Long term (current) use of antithrombotics/antiplatelets; F32.9 Major depressive disorder, single episode, unspecified; D50.9 Iron deficiency anemia, unspecified; E11.610 Type 2 diabetes mellitus with diabetic neuropathic arthropathy; L97.529 Non-pressure chronic ulcer of other part of left foot with unspecified severity; E11.21 Type 2 diabetes mellitus with diabetic nephropathy; E83.9 Disorder of mineral metabolism, unspecified; J44.9 Chronic obstructive pulmonary disease, unspecified; I50.9 Heart failure, unspecified; G90.4 Autonomic dysreflexia; E11.43 Type 2 diabetes mellitus with diabetic autonomic (poly)neuropathy; K31.84 Gastroparesis; Z86.718 Personal history of other venous thrombosis and embolism
CPT/HCPCS: 36415; 73630-LT; 80048; 80053; 80170; 80202; 81001; 81003; 82043; 82962; 83540; 83605; 83735; 84100; 84155; 84300; 85025; 85610; 85651; 85730; 86140; 87040-91; 87045; 87070; 87075; 93005; 96361; 96365; 96372; 99285-25

== ENCOUNTER 2019-03-30 09:18 | Inpatient (IN) | payer OTHER ==
[2019-03-30] MEDS: ACCU-CHEK XX ×14 (09:30→22:21)
[2019-03-30] MEDS: INSULIN LISPRO 100 UNIT/ML VIAL SC (09:36)
[2019-03-30] MEDS: ONDANSETRON 4 MG INJ IV (09:37)
[2019-03-30] MEDS: LEVETIRACETAM 1000 MG (PMX) 100 ML IVPB (09:37)
[2019-03-30] MEDS: LACTATED RINGER'S 1,000 ML IV (09:38)
[2019-03-30] MEDS: SOD CHLORIDE 0.9% 1,000 ML IV ×2 (09:45→15:49)
[2019-03-30] MEDS: ENALAPRILAT 1.25 MG INJ IV (10:02)
[2019-03-30 10:06] LABS: ADD MAN DIFF? NO
[2019-03-30] MEDS: LORAZEPAM 2 MG INJ IV (10:08)
[2019-03-30 10:22] LABS: ABNORMAL IP MESSAGE 1; BASOPHILS % 0.2 % (0.0-2.0); HEMATOCRIT 34.6 % (37.0-47.0); HEMOGLOBIN 10.7 g/dl (12.0-16.0); LYMPHOCYTES # 0.5 10^3/ul (0.8-2.9); LYMPHOCYTES % 3.9 % (15.0-51.0); MEAN CORPUSCULAR HEMOGLOBIN 27.2 pg (29.0-33.0); MEAN CORPUSCULAR HGB CONC 30.9 g/dl (32.0-37.0); MEAN CORPUSCULAR VOLUME 87.8 fl (82.0-101.0); MEAN PLATELET VOLUME 11.2 fl (7.4-10.4); MONOCYTE # 0.4 10^3/ul (0.3-0.9); MONOCYTES % 3.1 % (0.0-11.0); NEUTROPHIL # 11.7 10^3/ul (1.6-7.5); NEUTROPHILS % 92.5 % (39.0-77.0); PLATELET COUNT 351 10^3/UL (140-415); RED BLOOD COUNT 3.94 10^6/ul (4.20-5.40); RED CELL DISTRIBUTION WIDTH 13.2 % (11.5-14.5)
[2019-03-30 10:22] LABS: WHITE BLOOD COUNT 12.7 10^3/ul (4.8-10.8)
[2019-03-30 10:30] LABS: INR 0.94; PROTIME 12.7 Sec (11.9-14.9)
[2019-03-30 10:31] LABS: PARTIAL THROMBOPLASTIN TIME 30.8 Sec (23.0-35.0)
[2019-03-30 10:37] LABS: ALANINE AMINOTRANSFERASE 6 IU/L (13-69); ALBUMIN 3.5 g/dl (3.3-4.9); ALBUMIN/GLOBULIN RATIO 0.97; ALKALINE PHOSPHATASE 261 IU/L (42-121); ANION GAP 11 (5-13); ASPARTATE AMINO TRANSFERASE 18 IU/L (15-46); BILIRUBIN,INDIRECT 0.4 mg/dl (0-1.1); BILIRUBIN,TOTAL 0.4 mg/dl (0.2-1.3); BLOOD UREA NITROGEN 53 mg/dl (7-20); CALCIUM 9.3 mg/dl (8.4-10.2); CARBON DIOXIDE 28 mmol/L (21-31); CHLORIDE 95 mmol/L (97-110); CREATININE 2.12 mg/dl (0.44-1.00); Estimated GFR 24 mL/min (>60); LIPASE 268 U/L (23-300); SODIUM 134 mmol/L (135-144); TOTAL PROTEIN 7.1 g/dl (6.1-8.1)
[2019-03-30 10:48] LABS: TROPONIN-I 0.019 ng/ml (0.000-0.120)
[2019-03-30 10:51] LABS: POTASSIUM 5.8 mmol/L (3.5-5.1)
[2019-03-30 10:52] LABS: GLUCOSE 884 mg/dl (70-220)
[2019-03-30 11:23] LABS: AADO2 Arterial 3.4 mmHg (7.0-24.0); Allen Test ACCEPTAB; Arterial Base Excess -0.9 mmol/L (-3.0-3); Arterial Blood Gas Oxygen Sat 95.5 mmHG (95.0-98.0); Arterial COHb 0.3 % (0.0-3.0); Arterial HCO3 25.2 mmol/L (22.0-26.0); Arterial MetHb 0.2 % (0.0-1.5); Arterial pCO2 48.3 mmhg (35-45); MODE ROOM AIR; Site Right Radial
[2019-03-30] MEDS: niCARdipine-NS 0.1MG/ML DRIP 200 ML IV ×2 (11:32→11:43)
[2019-03-30 11:38] LABS: ADD UMIC YES; UR ASCORBIC ACID NEGATIVE (NEGATIVE); UR BILIRUBIN (Dip) NEGATIVE (NEGATIVE); UR BLOOD (Dip) 1+ mg/dL (NEGATIVE); UR CLARITY CLEAR (CLEAR); UR COLOR COLORLESS (YELLOW); UR GLUCOSE (Dip) 3+ mg/dL (NEGATIVE); UR KETONES (Dip) NEGATIVE (NEGATIVE); UR LEUKOCYTE ESTERASE (Dip) NEGATIVE Leu/ul (NEGATIVE); UR NITRITE (Dip) NEGATIVE (NEGATIVE); UR RBC 5 /HPF (0-5); UR SPECIFIC GRAVITY (Dip) 1.015 (1.003-1.030); UR TOTAL PROTEIN (Dip) 2+ mg/dl (NEGATIVE); UR UROBILINOGEN (Dip) NEGATIVE (NEGATIVE); UR WBC 0 /HPF (0-5)
[2019-03-30] MEDS: INSULIN REGULAR, HUMAN 100 UNIT/1 ML 3ML VIAL IVP (11:54)
[2019-03-30] MEDS ORDERED: DEXTROSE 50% 50 ML SYRINGE IV ×3 (12:00→12:30)
[2019-03-30] MEDS: INSULIN HUMAN REGULAR 100 UNIT in SOD CHLORIDE 0.9% 99 ML IV (12:42)
[2019-03-30] MEDS ORDERED: LORAZEPAM 2 MG INJ IV (15:30)
[2019-03-30] MEDS ORDERED: ONDANSETRON 4 MG INJ IV (15:30)
[2019-03-30] MEDS: ACETAMINOPHEN 650 MG SUPP PR (16:29)
[2019-03-30 17:53] LABS: CREATINE KINASE 56 IU/L (23-200)
[2019-03-30 18:04] LABS: CK INDEX 1.5
[2019-03-30 18:06] LABS: TROPONIN-I 0.045 ng/ml (0.000-0.120)
[2019-03-30 18:17] LABS: CK-MB 0.83 ng/ml (0.0-2.4)
[2019-03-30 19:45] LABS: AMPHETAMINE/METHAMPHETAMINE NEGATIVE (NEGATIVE); BARBITURATES NEGATIVE (NEGATIVE); BENZODIAZEPINES NEGATIVE (NEGATIVE); CANNABINOIDS NEGATIVE (NEGATIVE); COCAINE NEGATIVE (NEGATIVE); OPIATES NEGATIVE (NEGATIVE)
[2019-03-30] MEDS: FAMOTIDINE 20 MG INJ IV (21:17)
[2019-03-30] MEDS: HEPARIN 5,000 UNIT/1 ML VIAL SC (21:17)
[2019-03-30] MEDS: hydrALAzine 20 MG INJ IV (22:06)
[2019-03-30 22:13] LABS: CREATINE KINASE 79 IU/L (23-200)
[2019-03-30 22:26] LABS: CK-MB 0.76 ng/ml (0.0-2.4); TROPONIN-I 0.055 ng/ml (0.000-0.120)
[2019-03-31] MEDS: ACCU-CHEK XX ×5 (00:22→06:30)
[2019-03-31] MEDS: METOPROLOL 25 MG TAB PO ×3 (00:30→20:52)
[2019-03-31] MEDS: SOD CHLORIDE 0.9% 1,000 ML IV ×2 (03:33→11:30)
[2019-03-31] MEDS: PIPER-TAZO 2.25 GM (PMX) 50 ML IVPB ×3 (04:00→21:00)
[2019-03-31] MEDS: INSULIN GLARGINE [LANTus] (100 UNITS/ML) SYG SC (06:07)
[2019-03-31 06:22] LABS: ANION GAP 2 (5-13); BLOOD UREA NITROGEN 33 mg/dl (7-20); CALCIUM 8.9 mg/dl (8.4-10.2); CARBON DIOXIDE 29 mmol/L (21-31); CHLORIDE 113 mmol/L (97-110); CREATININE 1.41 mg/dl (0.44-1.00); Estimated GFR 39 mL/min (>60); GLUCOSE 114 mg/dl (70-220); PHOSPHORUS 3.6 mg/dl (2.5-4.9); POTASSIUM 3.9 mmol/L (3.5-5.1); SODIUM 144 mmol/L (135-144)
[2019-03-31 08:05] LABS: CHOL/HDL RATIO 5.7 RATIO; HDL CHOLESTEROL 42 mg/dl (37-92); LDL CHOLESTEROL,CALCULATED 160 mg/dl; TRIGLYCERIDES 201 mg/dl (0-149)
[2019-03-31 08:05] LABS: CHOLESTEROL 242 mg/dl (100-200)
[2019-03-31 08:36] LABS: THYROID STIMULATING HORMONE 0.555 MIU/L (0.465-4.680)
[2019-03-31] MEDS: NIFEdipine (XL) 30 MG TAB PO (09:58)
[2019-03-31] MEDS: FAMOTIDINE 20 MG INJ IV (09:58)
[2019-03-31] MEDS: HEPARIN 5,000 UNIT/1 ML VIAL SC ×2 (10:05→20:54)
[2019-03-31] MEDS: hydrALAzine 20 MG INJ IV (10:11)
[2019-03-31] MEDS ORDERED: DEXTROSE 50% 50 ML SYRINGE IV ×2 (11:30)
[2019-03-31] MEDS ORDERED: GLUCOSE GEL 15 GRAM TUBE PO ×2 (11:30)
[2019-03-31] MEDS ORDERED: GLUCOSE GEL 15 GRAM TUBE BUCCAL (11:30)
[2019-03-31] MEDS ORDERED: GLUCAGON 1 MG INJ IM (11:30)
[2019-03-31 12:12] LABS: HEMOGLOBIN A1C 11.8 % (0-5.9)
[2019-03-31] MEDS: INSULIN ASPART [NOVOLOG] 3 ML PEN SC ×5 (12:31→20:51)
[2019-03-31 13:55] LABS: C-REACTIVE PROTEIN 1.4 mg/dl (0.0-0.9)
[2019-03-31] MEDS: DAKINS 0.0125%(1/40) 473 ML SOLUTION TP (14:30)
[2019-03-31 14:37] LABS: ERYTHROCYTE SEDIMENTATION RATE 72 mm/Hr (0-30); PROCALCITONIN 0.19 ng/mL (0.00-0.10)
[2019-04-01] MEDS: ACCU-CHEK XX (01:59)
[2019-04-01] MEDS: PIPER-TAZO 2.25 GM (PMX) 50 ML IVPB ×3 (05:56→21:08)
[2019-04-01] MEDS: NIFEdipine (XL) 30 MG TAB PO (08:07)
[2019-04-01] MEDS: FAMOTIDINE 20 MG TAB PO (08:07)
[2019-04-01] MEDS: METOPROLOL 25 MG TAB PO ×2 (08:08→21:04)
[2019-04-01] MEDS: INSULIN ASPART [NOVOLOG] 3 ML PEN SC ×7 (08:09→21:23)
[2019-04-01] MEDS: HEPARIN 5,000 UNIT/1 ML VIAL SC ×2 (08:09→21:22)
[2019-04-01] MEDS: DAKINS 0.0125%(1/40) 473 ML SOLUTION TP (08:12)
[2019-04-01] MEDS: INSULIN GLARGINE [LANTus] (100 UNITS/ML) SYG SC (08:38)
[2019-04-01 08:51] LABS: ANION GAP 4 (5-13); BLOOD UREA NITROGEN 27 mg/dl (7-20); CALCIUM 8.3 mg/dl (8.4-10.2); CARBON DIOXIDE 27 mmol/L (21-31); CHLORIDE 109 mmol/L (97-110); CREATININE 1.34 mg/dl (0.44-1.00); Estimated GFR 41 mL/min (>60); GLUCOSE 153 mg/dl (70-220); MAGNESIUM 1.9 mg/dl (1.7-2.5); POTASSIUM 3.7 mmol/L (3.5-5.1); SODIUM 140 mmol/L (135-144)
[2019-04-01] MEDS: GENTAMICIN 0.1% 15 GM OINT TOP ×2 (13:00→21:03)
[2019-04-02] MEDS: hydrALAzine 20 MG INJ IV ×2 (00:13→11:57)
[2019-04-02] MEDS: ACCU-CHEK XX ×2 (02:30→05:39)
[2019-04-02] MEDS: INSULIN ASPART [NOVOLOG] 3 ML PEN SC ×8 (03:10→21:00)
[2019-04-02] MEDS: PIPER-TAZO 2.25 GM (PMX) 50 ML IVPB ×3 (05:37→22:18)
[2019-04-02 06:53] LABS: ADD MAN DIFF? NO
[2019-04-02 06:57] LABS: BASOPHILS % 0.4 % (0.0-2.0); EOSINOPHILS # 0.1 10^3/ul (0.0-0.5); EOSINOPHILS % 1.9 % (0.0-7.0); HEMATOCRIT 27.9 % (37.0-47.0); HEMOGLOBIN 8.9 g/dl (12.0-16.0); LYMPHOCYTES # 1.7 10^3/ul (0.8-2.9); LYMPHOCYTES % 24.9 % (15.0-51.0); MEAN CORPUSCULAR HEMOGLOBIN 27.2 pg (29.0-33.0); MEAN CORPUSCULAR HGB CONC 31.9 g/dl (32.0-37.0); MEAN CORPUSCULAR VOLUME 85.3 fl (82.0-101.0); MEAN PLATELET VOLUME 10.7 fl (7.4-10.4); MONOCYTE # 0.5 10^3/ul (0.3-0.9); MONOCYTES % 6.7 % (0.0-11.0); NEUTROPHIL # 4.4 10^3/ul (1.6-7.5); PLATELET COUNT 260 10^3/UL (140-415); RED BLOOD COUNT 3.27 10^6/ul (4.20-5.40); RED CELL DISTRIBUTION WIDTH 13.2 % (11.5-14.5)
[2019-04-02 06:57] LABS: WHITE BLOOD COUNT 6.7 10^3/ul (4.8-10.8)
[2019-04-02 07:22] LABS: HEMOGLOBIN A1C 11.8 % (0-5.9)
[2019-04-02 07:33] LABS: ANION GAP 4 (5-13); BLOOD UREA NITROGEN 29 mg/dl (7-20); CALCIUM 8.4 mg/dl (8.4-10.2); CARBON DIOXIDE 26 mmol/L (21-31); CHLORIDE 107 mmol/L (97-110); CREATININE 1.27 mg/dl (0.44-1.00); Estimated GFR 44 mL/min (>60); GLUCOSE 117 mg/dl (70-220); MAGNESIUM 1.8 mg/dl (1.7-2.5); POTASSIUM 3.9 mmol/L (3.5-5.1); SODIUM 137 mmol/L (135-144)
[2019-04-02] MEDS: INSULIN GLARGINE [LANTus] (100 UNITS/ML) SYG SC (07:45)
[2019-04-02] MEDS: GENTAMICIN 0.1% 15 GM OINT TOP ×3 (08:53→21:16)
[2019-04-02] MEDS: FAMOTIDINE 20 MG TAB PO (08:54)
[2019-04-02] MEDS: METOPROLOL 25 MG TAB PO ×2 (08:54→21:12)
[2019-04-02] MEDS: NIFEdipine (XL) 30 MG TAB PO (08:54)
[2019-04-02] MEDS: DAKINS 0.0125%(1/40) 473 ML SOLUTION TP (08:55)
[2019-04-02] MEDS: HEPARIN 5,000 UNIT/1 ML VIAL SC ×2 (09:05→21:00)
[2019-04-03] MEDS: hydrALAzine 20 MG INJ IV (01:37)
[2019-04-03] MEDS: ACCU-CHEK XX (02:00)
[2019-04-03] MEDS: PIPER-TAZO 2.25 GM (PMX) 50 ML IVPB ×3 (06:11→21:00)
[2019-04-03 08:39] LABS: ADD MAN DIFF? NO
[2019-04-03 08:48] LABS: BASOPHILS % 0.4 % (0.0-2.0); EOSINOPHILS # 0.1 10^3/ul (0.0-0.5); EOSINOPHILS % 2.4 % (0.0-7.0); HEMOGLOBIN 9.2 g/dl (12.0-16.0); LYMPHOCYTES # 1.4 10^3/ul (0.8-2.9); LYMPHOCYTES % 25.2 % (15.0-51.0); MEAN CORPUSCULAR HEMOGLOBIN 27.3 pg (29.0-33.0); MEAN CORPUSCULAR HGB CONC 31.7 g/dl (32.0-37.0); MEAN CORPUSCULAR VOLUME 86.1 fl (82.0-101.0); MEAN PLATELET VOLUME 11.2 fl (7.4-10.4); MONOCYTE # 0.4 10^3/ul (0.3-0.9); MONOCYTES % 6.7 % (0.0-11.0); NEUTROPHIL # 3.5 10^3/ul (1.6-7.5); NEUTROPHILS % 64.9 % (39.0-77.0); PLATELET COUNT 270 10^3/UL (140-415); RED BLOOD COUNT 3.37 10^6/ul (4.20-5.40); RED CELL DISTRIBUTION WIDTH 13.2 % (11.5-14.5)
[2019-04-03 08:48] LABS: WHITE BLOOD COUNT 5.4 10^3/ul (4.8-10.8)
[2019-04-03] MEDS: GENTAMICIN 0.1% 15 GM OINT TOP ×3 (08:48→20:54)
[2019-04-03] MEDS: NIFEdipine (XL) 30 MG TAB PO (08:49)
[2019-04-03] MEDS: METOPROLOL 25 MG TAB PO ×2 (08:49→20:50)
[2019-04-03] MEDS: FAMOTIDINE 20 MG TAB PO (08:49)
[2019-04-03] MEDS: HEPARIN 5,000 UNIT/1 ML VIAL SC ×2 (08:50→20:52)
[2019-04-03] MEDS: INSULIN ASPART [NOVOLOG] 3 ML PEN SC ×7 (08:55→20:49)
[2019-04-03] MEDS: INSULIN GLARGINE [LANTus] (100 UNITS/ML) SYG SC (08:57)
[2019-04-03] MEDS: DAKINS 0.0125%(1/40) 473 ML SOLUTION TP ×2 (09:00→13:38)
[2019-04-04] MEDS: ACCU-CHEK XX (01:32)
[2019-04-04] MEDS: hydrALAzine 20 MG INJ IV (02:49)
[2019-04-04] MEDS: PIPER-TAZO 2.25 GM (PMX) 50 ML IVPB ×3 (05:04→21:26)
[2019-04-04] MEDS: DIPHENHYDRAMINE 25 MG CAP PO ×4 (05:29→23:25)
[2019-04-04 07:41] LABS: ADD MAN DIFF? NO
[2019-04-04 07:51] LABS: BASOPHILS % 0.2 % (0.0-2.0); EOSINOPHILS # 0.1 10^3/ul (0.0-0.5); HEMATOCRIT 28.1 % (37.0-47.0); HEMOGLOBIN 9.2 g/dl (12.0-16.0); LYMPHOCYTES # 1.7 10^3/ul (0.8-2.9); LYMPHOCYTES % 26.6 % (15.0-51.0); MEAN CORPUSCULAR HEMOGLOBIN 28.2 pg (29.0-33.0); MEAN CORPUSCULAR HGB CONC 32.7 g/dl (32.0-37.0); MEAN CORPUSCULAR VOLUME 86.2 fl (82.0-101.0); MEAN PLATELET VOLUME 11.1 fl (7.4-10.4); MONOCYTE # 0.4 10^3/ul (0.3-0.9); MONOCYTES % 6.7 % (0.0-11.0); NEUTROPHIL # 4.1 10^3/ul (1.6-7.5); NEUTROPHILS % 64.2 % (39.0-77.0); PLATELET COUNT 264 10^3/UL (140-415); RED BLOOD COUNT 3.26 10^6/ul (4.20-5.40); RED CELL DISTRIBUTION WIDTH 13.2 % (11.5-14.5)
[2019-04-04 07:51] LABS: WHITE BLOOD COUNT 6.4 10^3/ul (4.8-10.8)
[2019-04-04] MEDS: NIFEdipine (XL) 30 MG TAB PO (09:02)
[2019-04-04] MEDS: METOPROLOL 25 MG TAB PO ×2 (09:03→20:24)
[2019-04-04] MEDS: FAMOTIDINE 20 MG TAB PO (09:03)
[2019-04-04] MEDS: HEPARIN 5,000 UNIT/1 ML VIAL SC ×2 (09:05→20:25)
[2019-04-04] MEDS: INSULIN GLARGINE [LANTus] (100 UNITS/ML) SYG SC (09:05)
[2019-04-04] MEDS: INSULIN ASPART [NOVOLOG] 3 ML PEN SC ×7 (09:06→20:24)
[2019-04-04] MEDS: DAKINS 0.0125%(1/40) 473 ML SOLUTION TP (09:11)
[2019-04-04] MEDS: GENTAMICIN 0.1% 15 GM OINT TOP ×3 (09:11→20:26)
[2019-04-04 14:42] LABS: ADD MAN DIFF? NO
[2019-04-04 14:45] LABS: WHITE BLOOD COUNT 6.3 10^3/ul (4.8-10.8)
[2019-04-04 14:45] LABS: BASOPHILS % 0.3 % (0.0-2.0); EOSINOPHILS # 0.1 10^3/ul (0.0-0.5); EOSINOPHILS % 1.9 % (0.0-7.0); HEMATOCRIT 29.9 % (37.0-47.0); HEMOGLOBIN 9.4 g/dl (12.0-16.0); LYMPHOCYTES # 1.5 10^3/ul (0.8-2.9); LYMPHOCYTES % 23.3 % (15.0-51.0); MEAN CORPUSCULAR HEMOGLOBIN 27.8 pg (29.0-33.0); MEAN CORPUSCULAR HGB CONC 31.4 g/dl (32.0-37.0); MEAN CORPUSCULAR VOLUME 88.5 fl (82.0-101.0); MEAN PLATELET VOLUME 11.3 fl (7.4-10.4); MONOCYTE # 0.3 10^3/ul (0.3-0.9); MONOCYTES % 5.4 % (0.0-11.0); NEUTROPHIL # 4.3 10^3/ul (1.6-7.5); NEUTROPHILS % 68.8 % (39.0-77.0); PLATELET COUNT 291 10^3/UL (140-415); RED BLOOD COUNT 3.38 10^6/ul (4.20-5.40); RED CELL DISTRIBUTION WIDTH 13.6 % (11.5-14.5)
[2019-04-04 15:05] LABS: ALANINE AMINOTRANSFERASE 7 IU/L (13-69); ALBUMIN 2.8 g/dl (3.3-4.9); ALBUMIN/GLOBULIN RATIO 0.82; ALKALINE PHOSPHATASE 152 IU/L (42-121); ANION GAP 6 (5-13); ASPARTATE AMINO TRANSFERASE 17 IU/L (15-46); BILIRUBIN,INDIRECT 0.2 mg/dl (0-1.1); BILIRUBIN,TOTAL 0.2 mg/dl (0.2-1.3); BLOOD UREA NITROGEN 40 mg/dl (7-20); CALCIUM 8.5 mg/dl (8.4-10.2); CARBON DIOXIDE 22 mmol/L (21-31); CHLORIDE 108 mmol/L (97-110); Estimated GFR 33 mL/min (>60); GLUCOSE 190 mg/dl (70-220); POTASSIUM 4.4 mmol/L (3.5-5.1); SODIUM 136 mmol/L (135-144); TOTAL PROTEIN 6.2 g/dl (6.1-8.1)
[2019-04-04] MEDS: FLUCONAZOLE 200 MG TAB PO (15:33)
[2019-04-05] MEDS: ACCU-CHEK XX ×2 (02:00→23:01)
[2019-04-05] MEDS: DIPHENHYDRAMINE 25 MG CAP PO (05:59)
[2019-04-05] MEDS: PIPER-TAZO 2.25 GM (PMX) 50 ML IVPB (05:59)
[2019-04-05] MEDS: hydrALAzine 20 MG INJ IV (07:58)
[2019-04-05 08:09] LABS: ADD MAN DIFF? NO
[2019-04-05 08:15] LABS: WHITE BLOOD COUNT 6.2 10^3/ul (4.8-10.8)
[2019-04-05 08:15] LABS: BASOPHILS % 0.5 % (0.0-2.0); EOSINOPHILS # 0.2 10^3/ul (0.0-0.5); EOSINOPHILS % 2.9 % (0.0-7.0); HEMATOCRIT 30.1 % (37.0-47.0); HEMOGLOBIN 9.4 g/dl (12.0-16.0); LYMPHOCYTES # 1.8 10^3/ul (0.8-2.9); LYMPHOCYTES % 29.8 % (15.0-51.0); MEAN CORPUSCULAR HEMOGLOBIN 27.6 pg (29.0-33.0); MEAN CORPUSCULAR HGB CONC 31.2 g/dl (32.0-37.0); MEAN CORPUSCULAR VOLUME 88.3 fl (82.0-101.0); MEAN PLATELET VOLUME 11.4 fl (7.4-10.4); MONOCYTE # 0.5 10^3/ul (0.3-0.9); NEUTROPHIL # 3.6 10^3/ul (1.6-7.5); NEUTROPHILS % 58.5 % (39.0-77.0); PLATELET COUNT 274 10^3/UL (140-415); RED BLOOD COUNT 3.41 10^6/ul (4.20-5.40); RED CELL DISTRIBUTION WIDTH 13.8 % (11.5-14.5)
[2019-04-05] MEDS: METOPROLOL 25 MG TAB PO (08:27)
[2019-04-05] MEDS: FAMOTIDINE 20 MG TAB PO (08:27)
[2019-04-05] MEDS: NIFEdipine (XL) 30 MG TAB PO (08:27)
[2019-04-05] MEDS: FLUCONAZOLE 200 MG TAB PO (08:27)
[2019-04-05] MEDS: INSULIN ASPART [NOVOLOG] 3 ML PEN SC ×8 (08:29→21:05)
[2019-04-05] MEDS: HEPARIN 5,000 UNIT/1 ML VIAL SC ×2 (08:31→20:19)
[2019-04-05] MEDS: INSULIN GLARGINE [LANTus] (100 UNITS/ML) SYG SC (08:31)
[2019-04-05 08:42] LABS: ANION GAP 5 (5-13); BLOOD UREA NITROGEN 43 mg/dl (7-20); CALCIUM 8.5 mg/dl (8.4-10.2); CARBON DIOXIDE 25 mmol/L (21-31); CHLORIDE 111 mmol/L (97-110); Estimated GFR 27 mL/min (>60); GLUCOSE 171 mg/dl (70-220); POTASSIUM 4.9 mmol/L (3.5-5.1); SODIUM 141 mmol/L (135-144)
[2019-04-05] MEDS: GENTAMICIN 0.1% 15 GM OINT TOP ×3 (08:49→20:20)
[2019-04-05] MEDS: DAKINS 0.0125%(1/40) 473 ML SOLUTION TP (08:49)
[2019-04-05] MEDS: LACTOBACILLUS RHAMNOSUS CAP PO ×2 (14:13→20:19)
[2019-04-05] MEDS: SOD CHLORIDE 0.9% 1,000 ML IV (14:14)
[2019-04-05] MEDS: LEVOFLOXACIN 750MG/D5W (PMX) 150 ML IVPB (15:11)
[2019-04-05] MEDS: METOPROLOL 50 MG TAB PO (20:20)
[2019-04-06] MEDS: ACCU-CHEK XX ×5 (02:00→21:00)
[2019-04-06] MEDS: SOD CHLORIDE 0.9% 1,000 ML IV ×3 (02:50→22:09)
[2019-04-06] MEDS: NIFEdipine (XL) 30 MG TAB PO ×2 (08:21→20:57)
[2019-04-06] MEDS: LACTOBACILLUS RHAMNOSUS CAP PO ×2 (08:22→20:56)
[2019-04-06] MEDS: METOPROLOL 50 MG TAB PO ×2 (08:22→20:56)
[2019-04-06] MEDS: FAMOTIDINE 20 MG TAB PO (08:22)
[2019-04-06] MEDS: GENTAMICIN 0.1% 15 GM OINT TOP ×3 (08:23→20:59)
[2019-04-06] MEDS: FLUCONAZOLE 200 MG TAB PO (08:23)
[2019-04-06] MEDS: DAKINS 0.0125%(1/40) 473 ML SOLUTION TP (08:24)
[2019-04-06] MEDS: INSULIN ASPART [NOVOLOG] 3 ML PEN SC ×7 (08:25→21:00)
[2019-04-06] MEDS: INSULIN GLARGINE [LANTus] (100 UNITS/ML) SYG SC ×2 (08:27→13:22)
[2019-04-06] MEDS: HEPARIN 5,000 UNIT/1 ML VIAL SC ×2 (08:27→20:58)
[2019-04-06] MEDS ORDERED: ACETAMINOPHEN 325 MG TAB PO (12:00)
[2019-04-06 13:03] LABS: ANION GAP 4 (5-13); BLOOD UREA NITROGEN 46 mg/dl (7-20); CALCIUM 8.4 mg/dl (8.4-10.2); CARBON DIOXIDE 24 mmol/L (21-31); CHLORIDE 106 mmol/L (97-110); Estimated GFR 33 mL/min (>60); GLUCOSE 306 mg/dl (70-220); SODIUM 134 mmol/L (135-144)
[2019-04-06 13:11] LABS: POTASSIUM 5.2 mmol/L (3.5-5.1)
[2019-04-06] MEDS: LINAGLIPTIN 5 MG TABLET PO (13:18)
[2019-04-06] MEDS: glipiZIDE 5 MG TAB PO (18:29)
[2019-04-07] MEDS: ACCU-CHEK XX ×9 (02:00→21:00)
[2019-04-07] MEDS: LEVOFLOXACIN 750 MG TABLET PO (05:21)
[2019-04-07] MEDS: SOD CHLORIDE 0.9% 1,000 ML IV ×2 (05:30→11:43)
[2019-04-07 06:28] LABS: ADD MAN DIFF? NO
[2019-04-07 06:36] LABS: BASOPHILS % 0.3 % (0.0-2.0); EOSINOPHILS # 0.2 10^3/ul (0.0-0.5); EOSINOPHILS % 2.3 % (0.0-7.0); HEMATOCRIT 28.8 % (37.0-47.0); LYMPHOCYTES # 1.9 10^3/ul (0.8-2.9); LYMPHOCYTES % 25.3 % (15.0-51.0); MEAN CORPUSCULAR HEMOGLOBIN 27.7 pg (29.0-33.0); MEAN CORPUSCULAR HGB CONC 31.3 g/dl (32.0-37.0); MEAN CORPUSCULAR VOLUME 88.6 fl (82.0-101.0); MEAN PLATELET VOLUME 10.9 fl (7.4-10.4); MONOCYTE # 0.5 10^3/ul (0.3-0.9); MONOCYTES % 6.3 % (0.0-11.0); NEUTROPHIL # 4.8 10^3/ul (1.6-7.5); NEUTROPHILS % 65.5 % (39.0-77.0); PLATELET COUNT 269 10^3/UL (140-415); RED BLOOD COUNT 3.25 10^6/ul (4.20-5.40); RED CELL DISTRIBUTION WIDTH 13.8 % (11.5-14.5)
[2019-04-07 06:36] LABS: WHITE BLOOD COUNT 7.3 10^3/ul (4.8-10.8)
[2019-04-07] MEDS: glipiZIDE 5 MG TAB PO ×2 (07:00→17:12)
[2019-04-07 07:06] LABS: ANION GAP 6 (5-13); BLOOD UREA NITROGEN 57 mg/dl (7-20); CARBON DIOXIDE 25 mmol/L (21-31); CHLORIDE 107 mmol/L (97-110); CREATININE 1.67 mg/dl (0.44-1.00); Estimated GFR 32 mL/min (>60); GLUCOSE 65 mg/dl (70-220); MAGNESIUM 2.3 mg/dl (1.7-2.5); POTASSIUM 5.1 mmol/L (3.5-5.1); SODIUM 138 mmol/L (135-144)
[2019-04-07] MEDS: INSULIN ASPART [NOVOLOG] 3 ML PEN SC ×8 (08:00→20:27)
[2019-04-07] MEDS: INSULIN GLARGINE [LANTus] (100 UNITS/ML) SYG SC ×2 (08:00→10:08)
[2019-04-07] MEDS: LINAGLIPTIN 5 MG TABLET PO (08:27)
[2019-04-07] MEDS: LACTOBACILLUS RHAMNOSUS CAP PO ×2 (08:28→20:20)
[2019-04-07] MEDS: FAMOTIDINE 20 MG TAB PO (08:28)
[2019-04-07] MEDS: DAKINS 0.0125%(1/40) 473 ML SOLUTION TP (08:28)
[2019-04-07] MEDS: GENTAMICIN 0.1% 15 GM OINT TOP ×3 (08:28→20:27)
[2019-04-07] MEDS: NIFEdipine (XL) 30 MG TAB PO ×2 (08:29→20:21)
[2019-04-07] MEDS: FLUCONAZOLE 200 MG TAB PO (08:29)
[2019-04-07] MEDS: METOPROLOL 50 MG TAB PO ×2 (08:30→20:21)
[2019-04-07] MEDS: HEPARIN 5,000 UNIT/1 ML VIAL SC ×2 (08:31→20:22)
[2019-04-07] MEDS: FLUCONAZOLE 100 MG TAB PO (09:00)
[2019-04-07] MEDS: AMOXICILLIN 250 MG CAP PO (13:04)
== END 2019-04-07 22:00 | disposition home health service (06) | DRG 637 ==
LOC: 5EC 04-02 21:55 → E/R 09:18 → TEL 11:30
PROVIDERS: Family Medicine
DX: E11.00 Type 2 diabetes mellitus with hyperosmolarity without nonketotic hyperglycemic-hyperosmolar coma (NKHHC) (principal); G92 Toxic encephalopathy; R65.11 Systemic inflammatory response syndrome (SIRS) of non-infectious origin with acute organ dysfunction; I13.0 Hypertensive heart and chronic kidney disease with heart failure and stage 1 through stage 4 chronic kidney disease, or unspecified chronic kidney disease; N17.9 Acute kidney failure, unspecified; I16.1 Hypertensive emergency; M86.8X7 Other osteomyelitis, ankle and foot; R56.9 Unspecified convulsions; E11.65 Type 2 diabetes mellitus with hyperglycemia; E11.22 Type 2 diabetes mellitus with diabetic chronic kidney disease; N18.9 Chronic kidney disease, unspecified; I50.9 Heart failure, unspecified; I25.10 Atherosclerotic heart disease of native coronary artery without angina pectoris; F32.9 Major depressive disorder, single episode, unspecified; E78.5 Hyperlipidemia, unspecified; I73.9 Peripheral vascular disease, unspecified; E11.621 Type 2 diabetes mellitus with foot ulcer; E11.69 Type 2 diabetes mellitus with other specified complication; E11.610 Type 2 diabetes mellitus with diabetic neuropathic arthropathy; E11.42 Type 2 diabetes mellitus with diabetic polyneuropathy; L97.529 Non-pressure chronic ulcer of other part of left foot with unspecified severity; Z91.14 Patient's other noncompliance with medication regimen; E87.5 Hyperkalemia; E86.0 Dehydration; Z91.11 Patient's noncompliance with dietary regimen
CPT/HCPCS: 36415; 36600; 70450; 70551; 71045; 73610; 73630-LT; 73718; 73721; 80048; 80053; 80061; 80307; 81001; 82550; 82553; 82803; 82962; 83036; 83690; 83735; 84100; 84145; 84443; 84484; 85025; 85610; 85651; 85730; 86140; 87040-91; 87070; 87081; 87086; 92610; 93005; 95819; 96372; 96374; 96375; 97116; 97161; 97530; 99285-25